=== PATIENT | female | born 1955 | race Caucasian/White ===

== ENCOUNTER 2016-10-21 09:59 | Inpatient (IN) | payer BC, MEDICARE ==
[~2016-10-21] VITALS: Ht 162.6 cm; Wt 92.6 kg
[2016-10-21 10:40] LABS: BASO % 0.3 % (0.0-1.0); EOS # 0.1 K/mm3 (0.0-0.50); EOS % 2.2 % (0.0-3.0); LARGE UNSTAINED CELL % 0.5 % (0.0-4.0); LYMPH # 1.3 K/mm3 (1.5-4.5); MEAN CORPUSCULAR HEMOGLOBIN 30.2 pg (27.0-33.0); MEAN CORPUSCULAR HGB CONC 34.4 g/dl (32.0-36.5); MEAN CORPUSCULAR VOLUME 87.7 fl (80.0-96.0); MONO # 0.4 K/mm3 (0.0-0.8); MONO % 7.5 % (0.0-5.0); NEUTROPHILS # 3.7 K/mm3 (1.8-7.7); NEUTROPHILS % 66.4 % (36.0-66.0); PLATELET COUNT, AUTOMATED 262 k/mm3 (150-450); WHITE BLOOD COUNT 5.6 K/mm3 (4.0-10.0)
[2016-10-21 11:03] LABS: ALBUMIN 3.2 GM/DL (3.2-5.2); ALBUMIN/GLOBULIN RATIO 0.74 (1.00-1.93); ALKALINE PHOSPHATASE 94 U/L (45-117); ALT/SGPT 26 U/L (12-78); ANION GAP 9 MEQ/L (8-16); AST/SGOT 21 U/L (15-37); BILIRUBIN,DIRECT < 0.1 MG/DL (0.0-0.2); BILIRUBIN,TOTAL 0.2 MG/DL (0.2-1.0); BLOOD UREA NITROGEN 8 MG/DL (7-18); CALCIUM LEVEL 8.6 MG/DL (8.8-10.2); CARBON DIOXIDE LEVEL 25 MEQ/L (21-32); CHLORIDE LEVEL 105 MEQ/L (98-107); CREATININE FOR GFR 0.53 MG/DL (0.55-1.02); GLOMERULAR FILTRATION RATE > 60.0 (>45); GLUCOSE, FASTING 117 MG/DL (80-110); POTASSIUM SERUM 3.9 MEQ/L (3.5-5.1); SODIUM LEVEL 139 MEQ/L (136-145); TOTAL PROTEIN 7.5 GM/DL (6.4-8.2)
--- NOTE | 2016-10-21 11:38 | REP ---
RIGHT LOWER EXTREMITY DUPLEX DOPPLER VENOUS ULTRASOUND: Real-time compression and duplex Doppler interrogation of the right lower extremity deep venous system is performed. Extensive occlusive deep venous thrombosis is seen of the right common femoral vein extending inferiorly through the superficial femoral vein into the popliteal vein. IMPRESSION: Extensive right lower extremity deep venous thrombosis extending through the right common femoral vein, superficial femoral vein and popliteal vein. Signed by Joe Rosa MD 10/22/2016 04:41 P
[2016-10-21] MEDS ORDERED: VITA400C35 PO (11:41)
[2016-10-21] MEDS ORDERED: CITA20TA4 PO (11:41)
[2016-10-21] MEDS ORDERED: VITA10002 PO (11:41)
[2016-10-21] MEDS ORDERED: RILU1TAB2 PO (11:41)
[2016-10-21] MEDS ORDERED: MAGN500C PO (11:41)
[2016-10-21] MEDS ORDERED: SELE200C PO (11:41)
[2016-10-21] MEDS ORDERED: MULT1TAB18 PO (11:41)
[2016-10-21] MEDS ORDERED: COCO1000 PO (11:41)
[2016-10-21] MEDS ORDERED: CHEL50TA PO (11:41)
[2016-10-21] MEDS ORDERED: mucinex PO (11:41)
[2016-10-21] MEDS ORDERED: UBIQ100C PO (11:41)
[2016-10-21] MEDS ORDERED: [UNRECOGNIZED DRUG - OTHER] PO (11:41)
[2016-10-21] MEDS ORDERED: ASPI1TAB PO (11:41)
[2016-10-21] MEDS ORDERED: CALC600T21 PO (11:41)
[2016-10-21] MEDS ORDERED: VITA1CAP2 PO (11:41)
[2016-10-21] MEDS ORDERED: [UNRECOGNIZED DRUG - OTHER] PO (14:02)
[2016-10-21 14:26] LABS: INR 1.03
[2016-10-21] MEDS ORDERED: ECOT81TA5 PO (14:39)
[2016-10-21] MEDS ORDERED: VITMTA PO (14:43)
[2016-10-21] MEDS ORDERED: SELE200T20 PO (14:43)
[2016-10-21] MEDS ORDERED: MAGN500T14 PO (14:43)
[2016-10-21] MEDS ORDERED: NATU400T PO (14:44)
[2016-10-21] MEDS ORDERED: CYCL5TA PO (14:49)
[2016-10-21] MEDS ORDERED: GUAI60TA PO (14:49)
--- NOTE | 2016-10-21 15:04 | HPEPDOC ---
Medical History and Physical Date of Admission History and Physical ATTENDING: PCP: Dr Meneses. CC: RLE edema HPI: 61yoF with a past medical history significant for ALS following with [facility]. in Phase 3 Clinical trial of Tirasemtiv. Pt states she began to notice RLE edema 5 days ago, it has been slowly increasing to her thigh area, with mild aching. Denies RLE warmth, erythema. No fevers/chills. Denies any OBRIEN, CP, SOB, cough, palpitations, abdominal pain, N/V/D or changes in bowel or bladder habits. Pt has chronic weakness related to her ALS which she states is unchanged. She is in a motorized chair. She does not ambulate, she is able to transfer with assistance. She does report some dysphagia and occasionally coughs with eating. She self adjusts her diet. She has a pending sleep study with PAULA Peter. Upon presentation to the hospital the patient was found to have RLE DVT, thus the hospitalist team was consulted. PMHx: ALS. Following with Dr Cecilia MITCHELL, Dr Molina [facility] [place]. Phase 3 trial of Tirasemtiv through [facility]. Depression Left shoulder dislocation 01/10 PSHX: BTL ovarian cyst removed. Colonoscopy 2007. [facility]. 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 Tobacco use: denies ETOH: small glass wine Q2 nights. Illicit Drugs: Denies Recent travel: denies Advanced directives: none FAMHX: Mother: Alive, CAD/CMP Father: Asthma Siblings: 4 brothers Alive, CAD/[place] Children: Alive, well Unexpected deaths due to medical reasons: None. ROS: As noted in HPI, otherwise 11pt ROS of systems reviewed and unremarkable. Pt is postmenopausal. PE: GEN: 61yoF, appears stated age. Pt is examined in a motorized chair. Alert and oriented x 3. Pleasant, interactive. HEENT: Normocephalic, atraumatic. Pupils are equal, round, and reactive to light. Extraocular movements are intact. No nystagmus appreciated. Sclera are nonicteric. Conjunctiva without injection. Nose midline. Nasal turbinates without bogginess. No facial asymmetry. Moist mucous membranes. Dentition fair. Pharynx pink and moist, no cobblestoning. Neck supple, trachea midline. No lymphadenopathy or thyromegaly appreciated. CHEST: Regular rate and rhythm, +S1, +S2 LUNGS: Decreased BS bilaterally but CTA. No wheezes, rales, or rhonchi. No accessory muscle use. ABD: Round, soft, non-tender, non-distended. +Bowel sounds throughout. No rebound or guarding. No costovertebral angle tenderness. EXT: RLE edema noted to proximal Rt thigh. No increased warmth, erythema, no TTP. No cording noted. SKIN: [place], dry, warm. Capillary refill <2sec. No rashes. NEURO: Alert and oriented x 3. Dysarthria noted. Pt with generalized weakness UE /LEs. RLE U/S 10/21/16 Extensive right lower extremity deep venous thrombosis extending through the right common femoral vein superficial femoral vein and popliteal vein. A&P: 61yoF with a past medical history significant for ALS following with [facility]. in Phase 3 Clinical trial of Tirasemtiv. Pt states she began to notice RLE edema 5 days ago, it has been slowly increasing to her thigh area, with mild aching. Denies RLE warmth, erythema. The patient will be admitted to PCU for at least [address] Chirinos's service. RLE DVT. Pt's neurologist wishes to avoid novel oral anticoagulants. Pt will be started on Lovenox 1 mg/kg Q12hrs. Initiate Coumadin 3 mg tonite. INR daily and dose Coumadin accordingly. ALS. Pt remains on Riluzole. Is currently in Phase 3 trail Tirasemtiv as per Neurology [facility]. Depression. Continue Celexa. Dysarthria/Dysphagia. Pt states speech has been unchanged. She states she has had some trouble with her swallowing, with occas cough. No prior Swallow evaluation per pt. Request ST. Aspiration precautions. EMEKA protocol. DVT prophylaxis. As above. The patient is a Full code. Vital Signs Vital Signs Date Time Temp Pulse Resp B/P (MAP) Pulse Ox O2 Delivery O2 Flow Rate FiO2 10/21/16 14:07 97.3 72 18 143/73 (96) 98 Room Air Laboratory Data Labs 24H Laboratory Tests 2 10/21/16 10:25: White Blood Count 5.6, Red Blood Count 4.15, Hemoglobin 12.5, Hematocrit 36.4, Mean Corpuscular Volume 87.7, Mean Corpuscular Hemoglobin 30.2, Mean Corpuscular Hemoglobin Concent 34.4, Red Cell Distribution Width 13.0, Platelet Count 262, Neutrophils (%) (Auto) 66.4H, Lymphocytes (%) (Auto) 23.0L, Monocytes (%) (Auto) 7.5H, Eosinophils (%) (Auto) 2.2, Basophils (%) (Auto) 0.3 , Neutrophils # (Auto) 3.7, Lymphocytes # (Auto) 1.3L, Monocytes # (Auto) 0.4, Eosinophils # (Auto) 0.1, Basophils # (Auto) 0.0, Large Unclassified Cells % 0.5 , Large Unclassified Cells # 0.0, Prothrombin Time 13.6, Prothromb Time International Ratio 1.03, Activated Partial Thromboplast Time 33.8, Anion Gap 9 , Glomerular Filtration Rate > 60.0, Calcium Level 8.6L, Aspartate Amino Transf (AST/SGOT) 21, Alanine Aminotransferase (ALT/SGPT) 26, Alkaline Phosphatase 94, Total Bilirubin 0.2, Direct Bilirubin < 0.1, Total Protein 7.5, Albumin 3.2, Albumin/Globulin Ratio 0.74L CBC/BMP Laboratory Tests 10/21/16 10:25 Red Blood Count 4.15, Mean Corpuscular Volume 87.7, Mean Corpuscular Hemoglobin 30.2, Mean Corpuscular Hemoglobin Concent 34.4, Red Cell Distribution Width 13.0 , Neutrophils (%) (Auto) 66.4 H, Lymphocytes (%) (Auto) 23.0 L, Monocytes (%) ( Auto) 7.5 H, Eosinophils (%) (Auto) 2.2, Basophils (%) (Auto) 0.3, Neutrophils # (Auto) 3.7, Lymphocytes # (Auto) 1.3 L, Monocytes # (Auto) 0.4, Eosinophils # (Auto) 0.1, Basophils # (Auto) 0.0 Home Medications Scheduled (Ubiquinol) 100 Mg Cap, 100 MG PO DAILY (Selenium 200 Mcg) 1 Tab Tab, 1 TAB PO DAILY Alpha Tocopheryl Acid Succinat (Vitamin E) 400 Unit Tab, 400 UNIT PO DAILY Aspirin (Ecotrin Low Strength) 81 Mg Tab, 81 MG PO DAILY Calcium Carbonate (Calcium) 600 Mg Tab, 1,200 MG PO DAILY Cholecalciferol (Vitamin D-3) 1,000 Unit Cap, 1,000 UNIT PO DAILY Citalopram Hydrobromide (Citalopram Hydrobromide) 20 Mg Tab, 20 MG PO QHS Coconut Oil (Coconut Oil Organic) 1,000 Mg Cap, 1,000 MG PO DAILY Cyanocobalamin (Vitamin B-12) 1,000 Mcg Tab, 1,000 MCG PO BID Cyclobenzaprine HCl (Cyclobenzaprine HCl) 5 Mg Tab, 5 MG PO QHS Magnesium Oxide (Magnesium Oxide) 500 Mg Tab, 500 MG PO DAILY Multivitamins *[facility] STOCKED* (Thera M Plus *[facility] STOCKED*) 1 Tab Tab, 1 TAB PO DAILY Riluzole (Riluzole) 50 Mg Tab, 50 MG PO DAILY Zinc Gluconate (Zinc) 50 Mg Tab, 50 MG PO DAILY [tirasemtiv] 125 TAB, 125 MG PO BID *EXPERIMENTAL DRUG* Scheduled PRN Guaifenesin (Mucinex) 600 Mg Tab, 600 MG PO DAILY PRN for CONGESTION Allergies Coded Allergies: No Known Allergies (Unverified , 10/21/16) Sada Mejia Oct 21, 2016 15:04
[2016-10-21] MEDS ORDERED: WARFARIN SOD 3 MG TAB PO ONE (17:00)
[2016-10-21 18:30] VITALS: BP 132/86
[2016-10-21] MEDS: ENOXAPARIN 80 MG/0.8 ML SYRINGE (J1650) SC SCH (18:59)
[2016-10-21 20:00] VITALS: BP 127/85
[2016-10-21] MEDS: [UNRECOGNIZED DRUG - OTHER] PO SCH (20:44)
[2016-10-21] MEDS: CYCLOBENZAPRINE 5MG TABLET PO SCH (20:45)
[2016-10-21] MEDS: CitaloPRAM (CeleXA) 20 MG TAB PO SCH (20:45)
[2016-10-21 23:59] VITALS: BP 128/74
[2016-10-22] MEDS: ACETAMINOPHEN 325 MG TAB PO PRN (00:37)
[2016-10-22 04:00] VITALS: BP 115/65
[2016-10-22] MEDS: ENOXAPARIN 80 MG/0.8 ML SYRINGE (J1650) SC SCH ×2 (06:09→17:38)
[2016-10-22 06:21] LABS: INR 1.12
[2016-10-22 06:23] LABS: BASO % 0.4 % (0.0-1.0); EOS # 0.1 K/mm3 (0.0-0.50); EOS % 1.8 % (0.0-3.0); LARGE UNSTAINED CELL # 0.1 K/mm3 (0.0-0.4); LARGE UNSTAINED CELL % 1.5 % (0.0-4.0); LYMPH # 1.8 K/mm3 (1.5-4.5); LYMPH % 33.5 % (24.0-44.0); MEAN CORPUSCULAR HEMOGLOBIN 29.3 pg (27.0-33.0); MEAN CORPUSCULAR HGB CONC 33.8 g/dl (32.0-36.5); MEAN CORPUSCULAR VOLUME 86.7 fl (80.0-96.0); MONO # 0.5 K/mm3 (0.0-0.8); MONO % 8.9 % (0.0-5.0); NEUTROPHILS # 2.9 K/mm3 (1.8-7.7); PLATELET COUNT, AUTOMATED 264 k/mm3 (150-450); RED CELL DISTRIBUTION WIDTH 12.8 % (11.5-14.5); WHITE BLOOD COUNT 5.3 K/mm3 (4.0-10.0)
[2016-10-22 06:41] LABS: ALBUMIN/GLOBULIN RATIO 0.77 (1.00-1.93); ALKALINE PHOSPHATASE 84 U/L (45-117); ALT/SGPT 23 U/L (12-78); ANION GAP 9 MEQ/L (8-16); AST/SGOT 21 U/L (15-37); BILIRUBIN,TOTAL 0.4 MG/DL (0.2-1.0); BLOOD UREA NITROGEN 9 MG/DL (7-18); CALCIUM LEVEL 8.7 MG/DL (8.8-10.2); CARBON DIOXIDE LEVEL 26 MEQ/L (21-32); CHLORIDE LEVEL 106 MEQ/L (98-107); CREATININE FOR GFR 0.55 MG/DL (0.55-1.02); GLOMERULAR FILTRATION RATE > 60.0 (>45); GLUCOSE, FASTING 108 MG/DL (80-110); POTASSIUM SERUM 3.8 MEQ/L (3.5-5.1); SODIUM LEVEL 141 MEQ/L (136-145); TOTAL PROTEIN 6.9 GM/DL (6.4-8.2)
[2016-10-22 08:00] VITALS: BP 131/78
[2016-10-22] MEDS: [UNRECOGNIZED DRUG - OTHER] PO SCH ×2 (08:36→20:51)
[2016-10-22] MEDS: RILUZOLE 50 MG PO SCH (08:36)
[2016-10-22 12:00] VITALS: BP 138/77
[2016-10-22 16:00] VITALS: BP 138/80
[2016-10-22] MEDS: WARFARIN SOD 5 MG TAB PO SCH (17:38)
[2016-10-22 20:00] VITALS: BP 166/98
[2016-10-22] MEDS: CitaloPRAM (CeleXA) 20 MG TAB PO SCH (20:51)
[2016-10-22] MEDS: CYCLOBENZAPRINE 5MG TABLET PO SCH (20:52)
[2016-10-22 20:58] VITALS: BP 153/83
--- NOTE | 2016-10-22 21:38 | IPN ---
DATE: 10/22/2016 SUBJECTIVE: The patient is seen and examined in the room today. The patient still complained about significant pain at the right upper lower extremities; still warm to touch and there is still significant swelling of the left lower extremities. No overnight events reported. OBJECTIVE: VITAL SIGNS: Temperature 99.5, pulse is 80, respirations 22, blood pressure is 131/78, pulse oximetry 92% on room air. GENERAL: No sign of acute distress. Alert and oriented times three. HEENT: Normocephalic, atraumatic. Extraocular movements grossly intact. CARDIOVASCULAR: Positive S1, S2, regular rate. LUNGS: Decreased breath sounds bilaterally, but clear to auscultation. No wheezes or rhonchi. ABDOMEN: Soft, nontender, nondistended. Bowel sounds present. EXTREMITIES: There is swelling of the right lower extremity below the right inguinal area. There is some mild increased warmth. Very tender to palpation, but no sign of cyanosis. LABORATORY DATA: WBC 25.3, hemoglobin 11.4, hematocrit 33.8, platelet count is 264. Sodium is 141, potassium 3.8, chloride 106. Carbon dioxide 26, BUN 9, creatinine 0.55. GFR greater than 60. Fasting glucose 108. Calcium 8.7, total bilirubin is 0.4. AST is 21, ALT is 23. Alkaline phosphatase is 84. Total protein 6.9, albumin 3. PT is 14.5, INR is 1.12. ASSESSMENT AND PLAN: 1. Right lower extremity deep venous thrombosis (DVT). The patient is currently in phase 3 clinical trial of Tirasemtiv. Due to the specialist, the patient's neurologist does recommend avoiding novel oral anticoagulations so patient is started on the Lovenox. A full dose of Lovenox bridging with Coumadin. Will continue to monitor INR creatinine. The patient's INR is around 1.12. 2. Amyotrophic lateral sclerosis (ALS). The patient has been taking her clinical trial medication (Tirasemtiv). The patient is also taking riluzole. 3. Depression. On Celexa. 4. History of dysarthria and dysphagia. The patient is on mechanical soft diet. The patient has speech therapy evaluation. The patient is on aspirin precautions. 5. Deep venous thrombosis (DVT) prophylaxis. The patient had a DVT, on Lovenox, bridging with warfarin.
[2016-10-23 06:00] VITALS: BP 157/79
[2016-10-23] MEDS: ENOXAPARIN 80 MG/0.8 ML SYRINGE (J1650) SC SCH ×2 (06:59→17:38)
[2016-10-23 07:12] LABS: BASO % 0.6 % (0.0-1.0); EOS # 0.1 K/mm3 (0.0-0.50); EOS % 1.6 % (0.0-3.0); INR 1.16; LARGE UNSTAINED CELL # 0.1 K/mm3 (0.0-0.4); LARGE UNSTAINED CELL % 2.2 % (0.0-4.0); LYMPH # 1.4 K/mm3 (1.5-4.5); LYMPH % 28.6 % (24.0-44.0); MEAN CORPUSCULAR HEMOGLOBIN 30.4 pg (27.0-33.0); MEAN CORPUSCULAR HGB CONC 34.5 g/dl (32.0-36.5); MEAN CORPUSCULAR VOLUME 88.1 fl (80.0-96.0); MONO # 0.4 K/mm3 (0.0-0.8); MONO % 8.4 % (0.0-5.0); NEUTROPHILS # 2.8 K/mm3 (1.8-7.7); NEUTROPHILS % 58.5 % (36.0-66.0); PLATELET COUNT, AUTOMATED 300 k/mm3 (150-450); RED CELL DISTRIBUTION WIDTH 12.7 % (11.5-14.5); WHITE BLOOD COUNT 4.7 K/mm3 (4.0-10.0)
[2016-10-23 07:34] LABS: ALBUMIN 3.2 GM/DL (3.2-5.2); ALBUMIN/GLOBULIN RATIO 0.82 (1.00-1.93); ALKALINE PHOSPHATASE 98 U/L (45-117); ALT/SGPT 27 U/L (12-78); ANION GAP 10 MEQ/L (8-16); AST/SGOT 24 U/L (15-37); BILIRUBIN,TOTAL 0.2 MG/DL (0.2-1.0); BLOOD UREA NITROGEN 9 MG/DL (7-18); CALCIUM LEVEL 8.4 MG/DL (8.8-10.2); CARBON DIOXIDE LEVEL 26 MEQ/L (21-32); CHLORIDE LEVEL 105 MEQ/L (98-107); CREATININE FOR GFR 0.56 MG/DL (0.55-1.02); GLOMERULAR FILTRATION RATE > 60.0 (>45); GLUCOSE, FASTING 121 MG/DL (80-110); POTASSIUM SERUM 3.5 MEQ/L (3.5-5.1); SODIUM LEVEL 141 MEQ/L (136-145); TOTAL PROTEIN 7.1 GM/DL (6.4-8.2)
[2016-10-23] MEDS: RILUZOLE 50 MG PO SCH (08:39)
[2016-10-23] MEDS: [UNRECOGNIZED DRUG - OTHER] PO SCH ×2 (08:39→20:26)
[2016-10-23 14:00] VITALS: BP 153/77
[2016-10-23] MEDS ORDERED: WARFARIN SOD 5 MG TAB PO ONE (17:30)
[2016-10-23] MEDS: WARFARIN SOD 5 MG TAB PO SCH (17:38)
--- NOTE | 2016-10-23 18:05 | IPN ---
DATE: 10/23/2016 SUBJECTIVE: The patient is seen and examined in the room today. The patient is still complaining about the swelling and the pain of right proximal lower extremity. Denies any acute complaint or acute changes. OBJECTIVE: VITAL SIGNS: Temperature is 97.6, pulse is 75, respirations 14, blood pressure 157/79. Pulse oximetry 97% on room air. GENERAL: No sign of acute distress. Alert and oriented times three. HEENT: Normocephalic, atraumatic. Extraocular motor grossly intact. CARDIOVASCULAR: Positive S1, S2. Regular rate. LUNGS: Decreased breath sounds bilaterally but clear to auscultation bilaterally. ABDOMEN: Soft, nontender, nondistended. Bowel sounds present. EXTREMITIES: Some swelling at the right lower extremity just below the right inguinal area. Tender to palpation, but no sign of cyanosis. LABORATORY DATA: WBC is 4.7, hemoglobin 12.4, hematocrit 35.9, platelet count is 300. Sodium is 141, potassium 3.5, chloride is 105, carbon dioxide 26, BUN 19, creatinine 0.56, GFR greater than 60, fasting glucose 121, calcium 8.4, total bilirubin 0.2, AST 24, ALT 27, alkaline phosphatase 98. Total protein 7.1, albumin 3.1. PT is 14.9, INR is 1.16. ASSESSMENT AND PLAN: 1. Right lower extremity deep venous thrombosis (DVT). The patient is currently in phase 3 clinical trial Tirasemtiv for amyotrophic lateral sclerosis (ALS) due to patient's neurologist recommend to avoid novel oral anticoagulation, so the patient started on full dose Lovenox covering with Coumadin. The patient's Coumadin has been subtherapeutic for the past three days. We will adjust the Coumadin from 5 mg to 10 mg. We will continue to monitor the daily international normalized ratio (INR). 2. Amyotrophic lateral sclerosis. The patient is taking clinical trial medication Tirasemtiv, and the patient is also taking Riluzole. 3. Depression on Celexa. 4. History of dysarthria and dysphagia. Evaluated by the speech therapist who recommends mechanical soft diet. 5. Deep venous thrombosis (DVT) prophylaxis. The patient has DVT on full-dose Lovenox bridging with Coumadin.
[2016-10-23] MEDS: CitaloPRAM (CeleXA) 20 MG TAB PO SCH (20:26)
[2016-10-23] MEDS: CYCLOBENZAPRINE 5MG TABLET PO SCH (20:26)
[2016-10-23 22:00] VITALS: BP 138/75
[2016-10-24] MEDS: ENOXAPARIN 80 MG/0.8 ML SYRINGE (J1650) SC SCH ×2 (05:59→18:11)
[2016-10-24 06:00] VITALS: BP 140/71
[2016-10-24 06:34] LABS: BASO % 0.4 % (0.0-1.0); EOS # 0.1 K/mm3 (0.0-0.50); LARGE UNSTAINED CELL # 0.1 K/mm3 (0.0-0.4); LARGE UNSTAINED CELL % 2.3 % (0.0-4.0); LYMPH # 1.5 K/mm3 (1.5-4.5); LYMPH % 33.7 % (24.0-44.0); MEAN CORPUSCULAR HEMOGLOBIN 31.5 pg (27.0-33.0); MEAN CORPUSCULAR HGB CONC 35.6 g/dl (32.0-36.5); MEAN CORPUSCULAR VOLUME 88.5 fl (80.0-96.0); MONO # 0.4 K/mm3 (0.0-0.8); MONO % 8.3 % (0.0-5.0); NEUTROPHILS # 2.4 K/mm3 (1.8-7.7); NEUTROPHILS % 53.3 % (36.0-66.0); PLATELET COUNT, AUTOMATED 291 k/mm3 (150-450); RED CELL DISTRIBUTION WIDTH 12.9 % (11.5-14.5); WHITE BLOOD COUNT 4.5 K/mm3 (4.0-10.0)
[2016-10-24 06:45] LABS: ALBUMIN/GLOBULIN RATIO 0.67 (1.00-1.93); ALKALINE PHOSPHATASE 89 U/L (45-117); ALT/SGPT 31 U/L (12-78); ANION GAP 7 MEQ/L (8-16); AST/SGOT 31 U/L (15-37); BILIRUBIN,TOTAL 0.2 MG/DL (0.2-1.0); BLOOD UREA NITROGEN 9 MG/DL (7-18); CALCIUM LEVEL 8.3 MG/DL (8.8-10.2); CARBON DIOXIDE LEVEL 29 MEQ/L (21-32); CHLORIDE LEVEL 105 MEQ/L (98-107); CREATININE FOR GFR 0.47 MG/DL (0.55-1.02); GLOMERULAR FILTRATION RATE > 60.0 (>45); GLUCOSE, FASTING 110 MG/DL (80-110); INR 1.96; POTASSIUM SERUM 3.8 MEQ/L (3.5-5.1); SODIUM LEVEL 141 MEQ/L (136-145); TOTAL PROTEIN 7.5 GM/DL (6.4-8.2)
[2016-10-24] MEDS: RILUZOLE 50 MG PO SCH (08:37)
[2016-10-24] MEDS: [UNRECOGNIZED DRUG - OTHER] PO SCH ×2 (08:38→21:07)
[2016-10-24 09:39] VITALS: BP_SYST 131; BP_SYST 138; BP_DIAS 83
[2016-10-24 14:00] VITALS: BP 160/100
[2016-10-24] MEDS ORDERED: WARFARIN SOD 7.5 MG TAB PO SCH (17:00)
--- NOTE | 2016-10-24 19:06 | IPN ---
DATE: 10/24/2016 SUBJECTIVE: Patient is seen and examined in the room today. The patient stated her right thigh swelling and the pain have been improving. No overnight events were reported. OBJECTIVE: VITAL SIGNS: Temperature is 98, pulse 83, respirations 18, blood pressure 140/71, pulse oximetry 96% on room air. GENERAL: No sign of acute distress. Alert and oriented times three. HEENT: Normocephalic, atraumatic. Extraocular motor grossly intact. CARDIOVASCULAR: Positive S1, S2. Regular rate. LUNGS: Decreased breath sounds bilaterally, but clear to auscultation. ABDOMEN: Soft, nontender, nondistended. Bowel sounds present. No rebound, no guarding. EXTREMITIES: There is still some mild swelling of the right lower extremity, just right below the right inguinal area. However, the swelling has improved compared to yesterday. There is still minor discomfort to palpation, but the tenderness also improved compared to yesterday. No sign of cyanosis. LABORATORY DATA: WBC is 4.5, hemoglobin 12.4, hematocrit 34.9, platelet count is 291. Sodium is 141, potassium 3.8, chloride 105, carbon dioxide 29, BUN 9, creatinine 0.47, GFR greater than 60, fasting glucose 110, calcium 8.3, total bilirubin 0.2, AST 31, ALT 31, alkaline phosphatase is 89. Total protein 7.5, albumin is 3. ASSESSMENT AND PLAN: 1. Right lower extremity deep venous thrombosis (DVT). The patient on phase 3 clinical trial of medication (tirasemtiv) for her amyotrophic lateral sclerosis (ALS). Her neurologist recommends avoiding oral anticoagulation. The patient is on full-dose Lovenox and covering with Coumadin. The patient had been taking various dose of Coumadin based on her international normalized ratio (INR). Today her INR improved to 1.96 from 1.16. Will continue to adjust the warfarin dose. 2. Amyotrophic lateral sclerosis. The patient is on Riluzole. The patient is also taking phase 3 clinical trial medication (tirasemtiv). 3. Depression on Celexa. 4. History of dysarthria and dysphagia. Speech therapy recommends mechanical soft diet. 5. Deep venous thrombosis prophylaxis. Patient on full dose of Lovenox and bridging with Coumadin.
[2016-10-24] MEDS: CYCLOBENZAPRINE 5MG TABLET PO SCH (21:07)
[2016-10-24] MEDS: CitaloPRAM (CeleXA) 20 MG TAB PO SCH (21:07)
[2016-10-24 22:00] VITALS: BP 150/86
[2016-10-25 06:00] VITALS: BP 152/81
[2016-10-25] MEDS: ENOXAPARIN 80 MG/0.8 ML SYRINGE (J1650) SC SCH (06:32)
[2016-10-25 06:52] LABS: BASO % 0.6 % (0.0-1.0); EOS # 0.1 K/mm3 (0.0-0.50); EOS % 2.9 % (0.0-3.0); LARGE UNSTAINED CELL # 0.1 K/mm3 (0.0-0.4); LYMPH # 1.7 K/mm3 (1.5-4.5); LYMPH % 35.4 % (24.0-44.0); MEAN CORPUSCULAR HEMOGLOBIN 29.9 pg (27.0-33.0); MEAN CORPUSCULAR HGB CONC 33.5 g/dl (32.0-36.5); MEAN CORPUSCULAR VOLUME 89.2 fl (80.0-96.0); MONO # 0.4 K/mm3 (0.0-0.8); NEUTROPHILS # 2.4 K/mm3 (1.8-7.7); NEUTROPHILS % 50.2 % (36.0-66.0); PLATELET COUNT, AUTOMATED 312 k/mm3 (150-450); RED CELL DISTRIBUTION WIDTH 13.1 % (11.5-14.5); WHITE BLOOD COUNT 4.8 K/mm3 (4.0-10.0)
[2016-10-25 06:57] LABS: INR 3.38
[2016-10-25 07:08] LABS: ALBUMIN 2.9 GM/DL (3.2-5.2); ALBUMIN/GLOBULIN RATIO 0.71 (1.00-1.93); ALKALINE PHOSPHATASE 87 U/L (45-117); ALT/SGPT 50 U/L (12-78); ANION GAP 8 MEQ/L (8-16); AST/SGOT 55 U/L (15-37); BILIRUBIN,TOTAL 0.2 MG/DL (0.2-1.0); BLOOD UREA NITROGEN 8 MG/DL (7-18); CARBON DIOXIDE LEVEL 25 MEQ/L (21-32); CHLORIDE LEVEL 108 MEQ/L (98-107); CREATININE FOR GFR 0.45 MG/DL (0.55-1.02); GLOMERULAR FILTRATION RATE > 60.0 (>45); GLUCOSE, FASTING 104 MG/DL (80-110); POTASSIUM SERUM 3.5 MEQ/L (3.5-5.1); SODIUM LEVEL 141 MEQ/L (136-145)
[2016-10-25] MEDS: [UNRECOGNIZED DRUG - OTHER] PO SCH ×2 (09:49→20:55)
[2016-10-25] MEDS: RILUZOLE 50 MG PO SCH (09:49)
--- NOTE | 2016-10-25 12:59 | IPNPDOC ---
Subjective Date Seen The patient was seen on 10/25/16. Subjective Chief Complaint/HPI The patient is a 61-year-old female admitted with a reason for visit of DVT. General: Denies: Chills, Night Sweats Constitutional: Denies: Chills, Fever Eyes: Denies: Pain, Vision change ENT: Denies: Head Aches, Ear Pain Skin: Denies: Rash, Lesions Pulmonary: Denies: Dyspnea, Cough Cardiovascular: Denies: Chest Pain, Palpitations Gastrointestinal: Denies: Nausea, Vomiting Genitourinary: Denies: Dysuria, Frequency Hematologic: Denies: Bruising, Bleeding Excessively Objective Physical Examination General Exam: Positive: Alert, Cooperative, No Acute Distress ENT Exam: Positive: Atraumatic, Mucous membr. moist/pink Neck Exam: Negative: JVD Chest Exam: Positive: Clear to auscultation, Normal air movement Heart Exam: Positive: Rate Normal, Normal S1, Normal S2 Abdomen Exam: Positive: Soft, Negative: Tenderness Extremity Exam: Positive: Other (right extremity noted to be more swollen than the left, no tenderness to palpation. 1+ pitting edema on the right. No sign of cyanosis) Psych Exam: Positive: Oriented x 3 Assessment /Plan Plan/VTE VTE Prophylaxis Ordered?: Yes Plan Right Lower Extremity Deep Venous Thrombosis (DVT). On full-dose Lovenox for bridging to Coumadin. INR noted to be 3.38 today We will continue to adjust her Coumadin dose accordingly. Amyotrophic lateral sclerosis. Cont Riluzole Also taking phase 3 clinical trial medication (tirasemtiv). Follows with Neuro as an outpt Depression Cont on Celexa History of dysarthria and dysphagia 2/2 ALS Speech therapy recommendation of mechanical soft diet noted Deep venous thrombosis prophylaxis Already on full dose of Lovenox for bridging to Coumadin. VS, I&O, 24H, Fishbone Vital Signs/I&O Vital Signs Date Time Temp Pulse Resp B/P (MAP) Pulse Ox O2 Delivery O2 Flow Rate FiO2 10/25/16 06:00 97.3 78 18 152/81 (104) 98 Room Air 10/24/16 09:39 96.0 I&O- Last 24 Hours up to 6 AM 10/25/16 05:59 Intake Total 1380 ml Balance 1380 ml Laboratory Data 24H LABS Laboratory Tests 2 10/25/16 06:14: White Blood Count 4.8, Red Blood Count 4.12, Hemoglobin 12.3, Hematocrit 36.8, Mean Corpuscular Volume 89.2, Mean Corpuscular Hemoglobin 29.9, Mean Corpuscular Hemoglobin Concent 33.5, Red Cell Distribution Width 13.1, Platelet Count 312, Neutrophils (%) (Auto) 50.2, Lymphocytes (%) (Auto) 35.4, Monocytes ( %) (Auto) 8.0H, Eosinophils (%) (Auto) 2.9, Basophils (%) (Auto) 0.6, Neutrophils # (Auto) 2.4, Lymphocytes # (Auto) 1.7, Monocytes # (Auto) 0.4, Eosinophils # (Auto) 0.1, Basophils # (Auto) 0.0, Large Unclassified Cells % 3.0 , Large Unclassified Cells # 0.1, Prothrombin Time 34.2H, Prothromb Time International Ratio 3.38, Anion Gap 8, Glomerular Filtration Rate > 60.0, Blood Urea Nitrogen 8, Creatinine 0.45L, Sodium Level 141, Potassium Level 3.5, Chloride Level 108H, Carbon Dioxide Level 25, Calcium Level 8.0L, Aspartate Amino Transf (AST/SGOT) 55H, Alanine Aminotransferase (ALT/SGPT) 50, Alkaline Phosphatase 87, Total Bilirubin 0.2, Total Protein 7.0, Albumin 2.9L, Albumin/ Globulin Ratio 0.71L CBC/BMP Laboratory Tests 10/25/16 06:14 Red Blood Count 4.12, Mean Corpuscular Volume 89.2, Mean Corpuscular Hemoglobin 29.9, Mean Corpuscular Hemoglobin Concent 33.5, Red Cell Distribution Width 13.1 , Neutrophils (%) (Auto) 50.2, Lymphocytes (%) (Auto) 35.4, Monocytes (%) (Auto ) 8.0 H, Eosinophils (%) (Auto) 2.9, Basophils (%) (Auto) 0.6, Neutrophils # ( Auto) 2.4, Lymphocytes # (Auto) 1.7, Monocytes # (Auto) 0.4, Eosinophils # (Auto ) 0.1, Basophils # (Auto) 0.0, Calcium Level 8.0 L, Aspartate Amino Transf (AST/ SGOT) 55 H, Alanine Aminotransferase (ALT/SGPT) 50, Alkaline Phosphatase 87, Total Bilirubin 0.2, Total Protein 7.0, Albumin 2.9 L IKE KRAMER MD Oct 25, 2016 12:59
[2016-10-25 14:00] VITALS: BP 140/89
[2016-10-25] MEDS: ACETAMINOPHEN 325 MG TAB PO PRN ×2 (14:33→18:24)
[2016-10-25] MEDS: CYCLOBENZAPRINE 5MG TABLET PO SCH (18:37)
[2016-10-25] MEDS ORDERED: CYCLOBENZAPRINE 5MG TABLET PO ONE (19:00)
[2016-10-25] MEDS: CitaloPRAM (CeleXA) 20 MG TAB PO SCH (20:56)
[2016-10-25 22:00] VITALS: BP 126/82
[2016-10-26] MEDS: ACETAMINOPHEN 325 MG TAB PO PRN ×2 (00:51→06:56)
[2016-10-26 06:00] VITALS: BP 125/60
--- NOTE | 2016-10-26 06:17 | REP ---
RIGHT ANKLE, FOUR VIEWS: HISTORY: Fall. There is a nondisplaced fracture of the distal fibula. The fracture appears to extend into the joint space. There is no dislocation. Calcification is present inferior to the medial malleolus. This represents ligamentous or tendon calcification. Soft tissue swelling is present. IMPRESSION: Nondisplaced fracture of the distal fibula. Signed by Lamine Fitzpatrick MD 10/26/2016 08:18 A
[2016-10-26 08:06] LABS: BASO % 0.5 % (0.0-1.0); EOS # 0.1 K/mm3 (0.0-0.50); EOS % 1.4 % (0.0-3.0); LARGE UNSTAINED CELL # 0.1 K/mm3 (0.0-0.4); LARGE UNSTAINED CELL % 1.3 % (0.0-4.0); LYMPH # 1.3 K/mm3 (1.5-4.5); LYMPH % 24.7 % (24.0-44.0); MEAN CORPUSCULAR HEMOGLOBIN 29.3 pg (27.0-33.0); MEAN CORPUSCULAR HGB CONC 33.3 g/dl (32.0-36.5); MEAN CORPUSCULAR VOLUME 88.2 fl (80.0-96.0); MONO # 0.4 K/mm3 (0.0-0.8); MONO % 7.1 % (0.0-5.0); NEUTROPHILS # 3.3 K/mm3 (1.8-7.7); PLATELET COUNT, AUTOMATED 320 k/mm3 (150-450); RED CELL DISTRIBUTION WIDTH 13.3 % (11.5-14.5); WHITE BLOOD COUNT 5.1 K/mm3 (4.0-10.0)
[2016-10-26 08:10] LABS: INR 3.17
[2016-10-26] MEDS: CYCLOBENZAPRINE 5MG TABLET PO PRN (08:13)
[2016-10-26] MEDS: RILUZOLE 50 MG PO SCH (08:13)
[2016-10-26] MEDS: PERCOCET 5MG/325MG TAB PO PRN ×3 (08:14→20:24)
[2016-10-26] MEDS: [UNRECOGNIZED DRUG - OTHER] PO SCH ×2 (08:14→20:22)
[2016-10-26 08:27] LABS: ALBUMIN 3.2 GM/DL (3.2-5.2); ALBUMIN/GLOBULIN RATIO 0.74 (1.00-1.93); ALKALINE PHOSPHATASE 89 U/L (45-117); ALT/SGPT 58 U/L (12-78); ANION GAP 8 MEQ/L (8-16); AST/SGOT 50 U/L (15-37); BILIRUBIN,TOTAL 0.3 MG/DL (0.2-1.0); BLOOD UREA NITROGEN 10 MG/DL (7-18); CALCIUM LEVEL 8.4 MG/DL (8.8-10.2); CARBON DIOXIDE LEVEL 25 MEQ/L (21-32); CHLORIDE LEVEL 108 MEQ/L (98-107); CREATININE FOR GFR 0.53 MG/DL (0.55-1.02); GLOMERULAR FILTRATION RATE > 60.0 (>45); GLUCOSE, FASTING 112 MG/DL (80-110); POTASSIUM SERUM 3.6 MEQ/L (3.5-5.1); SODIUM LEVEL 141 MEQ/L (136-145); TOTAL PROTEIN 7.5 GM/DL (6.4-8.2)
[2016-10-26] MEDS ORDERED: PERCOCET 5MG/325MG TAB PO ONE (09:45)
--- NOTE | 2016-10-26 11:12 | CR ---
DATE OF CONSULTATION: 10/26/2016 CHIEF COMPLAINT: Right ankle pain. HISTORY OF PRESENT ILLNESS: This is a 61-year-old female with a past medical history significant for amyotrophic lateral sclerosis (ALS). She is basically bed. She describes herself as being bed to chair. She is in a wheelchair because of ALS. The right side is the bad side. She is also under admission for a deep vein thrombosis in the right lower extremity. She was getting out of bed to use the shower yesterday and she says that she turned her ankle. She had declined help to use the shower according to the patient. She wishes she had accepted the help in the shower. The ankle has hurt. The ankle was recently placed in an Navneet wrap and that has helped some. MEDICAL HISTORY: Includes ALS, depression, left shoulder dislocation in December 2015. SURGICAL HISTORY: Includes ovarian cyst removal, colonoscopy. SOCIAL HISTORY: She is and has two children. She is from [place], [place]. She doesn't smoke, rarely drinks. No drug use. FAMILY HISTORY: Not contributory. REVIEW OF SYSTEMS: She has not been complaining of any changes in her neurologic deficit, shortness of breath, headache, abdominal pain, chest pain, endocrine problems. She complains of right lower extremity discomfort around the ankle. CLINICAL EXAMINATION: Alert and cooperative. She has some dysarthria secondary to her disease, but she is pleasant and interactive. Normocephalic, atraumatic. No shortness of breath. Abdomen soft and nontender. Extremities are out to length. Right lower extremity has tenderness, especially around the fibula, the right ankle. Toes are pink. Calves are relatively soft. The knee has no effusion. Ultrasound reflects a deep vein thrombosis in the right common femoral vein and the popliteal vein included. Plain films reflect a nondisplaced fibula fracture and disuse osteopenia. IMPRESSION: Right ankle fibula fracture, not displaced along with a severe neuromuscular condition. RECOMMENDATIONS: I would recommend an air cast splint. She can work with physical therapy to be bed to chair; however, she asked about ambulation and I think her ambulation was probably compromised prior to the injury and will be continue to be compromised afterwards. We talked about healing time, which is about 2 months for this injury. Air cast followup at orthopedics in 10-15 days. Physiotherapy for bed to chair mobilization.
[2016-10-26 14:00] VITALS: BP 141/82
--- NOTE | 2016-10-26 14:13 | IPNPDOC ---
Subjective Date Seen The patient was seen on 10/26/16. Subjective Chief Complaint/HPI The patient is a 61-year-old female admitted with a reason for visit of DVT. General: Denies: Chills, Night Sweats Constitutional: Denies: Chills, Fever Eyes: Denies: Pain, Vision change ENT: Denies: Head Aches, Ear Pain Skin: Denies: Rash, Lesions Pulmonary: Denies: Dyspnea, Cough Cardiovascular: Denies: Chest Pain, Palpitations Gastrointestinal: Denies: Nausea, Vomiting Genitourinary: Denies: Dysuria, Frequency Musculoskeletal: Reports: Foot Pain (Right Foot) Objective Physical Examination General Exam: Positive: Alert, Cooperative, No Acute Distress ENT Exam: Positive: Atraumatic, Mucous membr. moist/pink Neck Exam: Negative: JVD Chest Exam: Positive: Clear to auscultation, Normal air movement Heart Exam: Positive: Rate Normal, Normal S1, Normal S2 Abdomen Exam: Positive: Soft, Negative: Tenderness Extremity Exam: Positive: Other (Right Foot noted to be edematous, tender to palpation on the lateral aspect of the foot--superior to the lateral maleolous.) Psych Exam: Positive: Oriented x 3 Assessment /Plan Plan/VTE VTE Prophylaxis Ordered?: Yes Plan s/p Fall, Non-Displaced Fracture of the Distula Right Fibula Appreciate Ortho Input-->Air Cast Follow up at Orthopedics in 10-15 days Continue Physical Therapy Right Lower Extremity Deep Venous Thrombosis (DVT). On Coumadin. INR noted to be 3.1 today We will continue to adjust her Coumadin dose accordingly. Amyotrophic lateral sclerosis. Cont Riluzole Also taking phase 3 clinical trial medication (tirasemtiv). Follows with Neuro as an outpt Depression Cont on Celexa History of dysarthria and dysphagia 2/2 ALS Speech therapy recommendation of mechanical soft diet noted Deep venous thrombosis prophylaxis Already on Coumadin. Disposition-Will follow up with PT recommendations regarding disposition. VS, I&O, 24H, Fishbone Vital Signs/I&O Vital Signs Date Time Temp Pulse Resp B/P (MAP) Pulse Ox O2 Delivery O2 Flow Rate FiO2 10/26/16 11:06 Room Air 10/26/16 10:29 18 10/26/16 06:00 98.0 71 125/60 (81) 98 10/24/16 09:39 96.0 I&O- Last 24 Hours up to 6 AM 10/26/16 06:00 Intake Total 300 ml Balance 300 ml Laboratory Data 24H LABS Laboratory Tests 2 10/26/16 07:41: White Blood Count 5.1, Red Blood Count 4.01, Hemoglobin 11.8L, Hematocrit 35.4L , Mean Corpuscular Volume 88.2, Mean Corpuscular Hemoglobin 29.3, Mean Corpuscular Hemoglobin Concent 33.3, Red Cell Distribution Width 13.3, Platelet Count 320, Neutrophils (%) (Auto) 65.0, Lymphocytes (%) (Auto) 24.7, Monocytes ( %) (Auto) 7.1H, Eosinophils (%) (Auto) 1.4, Basophils (%) (Auto) 0.5, Neutrophils # (Auto) 3.3, Lymphocytes # (Auto) 1.3L, Monocytes # (Auto) 0.4, Eosinophils # (Auto) 0.1, Basophils # (Auto) 0.0, Large Unclassified Cells % 1.3 , Large Unclassified Cells # 0.1, Prothrombin Time 32.5H, Prothromb Time International Ratio 3.17, Anion Gap 8, Glomerular Filtration Rate > 60.0, Blood Urea Nitrogen 10, Creatinine 0.53L, Sodium Level 141, Potassium Level 3.6, Chloride Level 108H, Carbon Dioxide Level 25, Calcium Level 8.4L, Aspartate Amino Transf (AST/SGOT) 50H, Alanine Aminotransferase (ALT/SGPT) 58, Alkaline Phosphatase 89, Total Bilirubin 0.3, Total Protein 7.5, Albumin 3.2, Albumin/ Globulin Ratio 0.74L CBC/BMP Laboratory Tests 10/26/16 07:41 Red Blood Count 4.01, Mean Corpuscular Volume 88.2, Mean Corpuscular Hemoglobin 29.3, Mean Corpuscular Hemoglobin Concent 33.3, Red Cell Distribution Width 13.3 , Neutrophils (%) (Auto) 65.0, Lymphocytes (%) (Auto) 24.7, Monocytes (%) (Auto ) 7.1 H, Eosinophils (%) (Auto) 1.4, Basophils (%) (Auto) 0.5, Neutrophils # ( Auto) 3.3, Lymphocytes # (Auto) 1.3 L, Monocytes # (Auto) 0.4, Eosinophils # ( Auto) 0.1, Basophils # (Auto) 0.0, Calcium Level 8.4 L, Aspartate Amino Transf ( AST/SGOT) 50 H, Alanine Aminotransferase (ALT/SGPT) 58, Alkaline Phosphatase 89 , Total Bilirubin 0.3, Total Protein 7.5, Albumin 3.2 IKE KRAMER MD October 26, 2016 14:13
[2016-10-26] MEDS: WARFARIN SOD 3 MG TAB PO SCH (17:14)
[2016-10-26] MEDS: CitaloPRAM (CeleXA) 20 MG TAB PO SCH (20:22)
[2016-10-26 22:00] VITALS: BP 123/70
[2016-10-27 06:00] VITALS: BP 136/64
[2016-10-27] MEDS: PERCOCET 5MG/325MG TAB PO PRN (06:29)
[2016-10-27 07:31] LABS: BASO % 0.4 % (0.0-1.0); EOS # 0.1 K/mm3 (0.0-0.50); EOS % 1.6 % (0.0-3.0); LARGE UNSTAINED CELL # 0.1 K/mm3 (0.0-0.4); LARGE UNSTAINED CELL % 2.2 % (0.0-4.0); LYMPH # 1.2 K/mm3 (1.5-4.5); LYMPH % 22.2 % (24.0-44.0); MEAN CORPUSCULAR HEMOGLOBIN 29.5 pg (27.0-33.0); MEAN CORPUSCULAR VOLUME 89.3 fl (80.0-96.0); MONO # 0.3 K/mm3 (0.0-0.8); MONO % 6.7 % (0.0-5.0); NEUTROPHILS # 3.3 K/mm3 (1.8-7.7); NEUTROPHILS % 66.8 % (36.0-66.0); PLATELET COUNT, AUTOMATED 314 k/mm3 (150-450); RED CELL DISTRIBUTION WIDTH 13.4 % (11.5-14.5)
[2016-10-27 07:57] LABS: ALBUMIN 3.1 GM/DL (3.2-5.2); ALBUMIN/GLOBULIN RATIO 0.78 (1.00-1.93); ALKALINE PHOSPHATASE 84 U/L (45-117); ALT/SGPT 68 U/L (12-78); ANION GAP 9 MEQ/L (8-16); AST/SGOT 57 U/L (15-37); BILIRUBIN,TOTAL 0.2 MG/DL (0.2-1.0); BLOOD UREA NITROGEN 10 MG/DL (7-18); CALCIUM LEVEL 8.3 MG/DL (8.8-10.2); CARBON DIOXIDE LEVEL 26 MEQ/L (21-32); CHLORIDE LEVEL 106 MEQ/L (98-107); GLOMERULAR FILTRATION RATE > 60.0 (>45); GLUCOSE, FASTING 106 MG/DL (80-110); POTASSIUM SERUM 3.7 MEQ/L (3.5-5.1); SODIUM LEVEL 141 MEQ/L (136-145); TOTAL PROTEIN 7.1 GM/DL (6.4-8.2)
[2016-10-27 08:06] LABS: INR 3.12
[2016-10-27 09:00] VITALS: BP 134/82
[2016-10-27] MEDS: RILUZOLE 50 MG PO SCH (09:59)
[2016-10-27] MEDS: [UNRECOGNIZED DRUG - OTHER] PO SCH ×2 (09:59→21:11)
--- NOTE | 2016-10-27 11:41 | IPNPDOC ---
Subjective Date Seen The patient was seen on 10/27/16. Subjective Chief Complaint/HPI The patient is a 61-year-old female admitted with a reason for visit of DVT. General: Denies: Chills, Night Sweats Constitutional: Denies: Chills, Fever Eyes: Denies: Pain, Vision change ENT: Denies: Head Aches, Ear Pain Skin: Denies: Rash, Lesions Pulmonary: Denies: Dyspnea, Cough Cardiovascular: Denies: Chest Pain, Palpitations Gastrointestinal: Denies: Nausea, Vomiting Genitourinary: Denies: Dysuria, Frequency Hematologic: Denies: Bruising, Bleeding Excessively Objective Physical Examination General Exam: Positive: Alert, Cooperative, No Acute Distress ENT Exam: Positive: Atraumatic, Mucous membr. moist/pink Neck Exam: Negative: JVD Chest Exam: Positive: Clear to auscultation, Normal air movement Heart Exam: Positive: Rate Normal, Normal S1, Normal S2 Abdomen Exam: Positive: Soft, Negative: Tenderness Extremity Exam: Positive: Other (Right Ankle noted to be wrapped in ESTELLA- Bandage in an AirCast--no tenderness to palpation noted.) Psych Exam: Positive: Oriented x 3 Assessment /Plan Plan/VTE VTE Prophylaxis Ordered?: Yes Plan Non-Displaced Fracture of the Distula Right Fibula 2/2 Mechanical Fall Appreciate Ortho Input-->Air Cast Follow up at Orthopedics in 10-15 days Continue Physical Therapy Right Lower Extremity Deep Venous Thrombosis (DVT). On Coumadin. INR noted to be 3.1 today We will continue to adjust her Coumadin dose accordingly. Amyotrophic lateral sclerosis. Cont Riluzole Also taking phase 3 clinical trial medication (tirasemtiv). Follows with Neuro as an outpt Depression Cont on Celexa History of dysarthria and dysphagia 2/2 ALS Speech therapy recommendation of mechanical soft diet noted Deep venous thrombosis prophylaxis Already on Coumadin. Disposition-Will follow up with PT recommendations regarding disposition. VS, I&O, 24H, Fishbone Vital Signs/I&O Vital Signs Date Time Temp Pulse Resp B/P (MAP) Pulse Ox O2 Delivery O2 Flow Rate FiO2 10/27/16 09:49 94 Room Air 10/27/16 07:29 16 10/27/16 06:00 98.4 91 136/64 (88) 10/24/16 09:39 96.0 I&O- Last 24 Hours up to 6 AM 5/2/17 06:00 Intake Total 540 ml Output Total 800 ml Balance -260 ml Laboratory Data 24H LABS Laboratory Tests 2 10/27/16 07:04: White Blood Count 5.0, Red Blood Count 3.87L, Hemoglobin 11.4L, Hematocrit 34.6L , Mean Corpuscular Volume 89.3, Mean Corpuscular Hemoglobin 29.5, Mean Corpuscular Hemoglobin Concent 33.0, Red Cell Distribution Width 13.4, Platelet Count 314, Neutrophils (%) (Auto) 66.8H, Lymphocytes (%) (Auto) 22.2L, Monocytes (%) (Auto) 6.7H, Eosinophils (%) (Auto) 1.6, Basophils (%) (Auto) 0.4 , Neutrophils # (Auto) 3.3, Lymphocytes # (Auto) 1.2L, Monocytes # (Auto) 0.3, Eosinophils # (Auto) 0.1, Basophils # (Auto) 0.0, Large Unclassified Cells % 2.2 , Large Unclassified Cells # 0.1, Prothrombin Time 32.1H, Prothromb Time International Ratio 3.12, Anion Gap 9, Glomerular Filtration Rate > 60.0, Blood Urea Nitrogen 10, Creatinine 0.50L, Sodium Level 141, Potassium Level 3.7, Chloride Level 106, Carbon Dioxide Level 26, Calcium Level 8.3L, Aspartate Amino Transf (AST/SGOT) 57H, Alanine Aminotransferase (ALT/SGPT) 68, Alkaline Phosphatase 84, Total Bilirubin 0.2, Total Protein 7.1, Albumin 3.1L, Albumin/ Globulin Ratio 0.78L CBC/BMP Laboratory Tests 10/27/16 07:04 Red Blood Count 3.87 L, Mean Corpuscular Volume 89.3, Mean Corpuscular Hemoglobin 29.5, Mean Corpuscular Hemoglobin Concent 33.0, Red Cell Distribution Width 13.4, Neutrophils (%) (Auto) 66.8 H, Lymphocytes (%) (Auto) 22.2 L, Monocytes (%) (Auto) 6.7 H, Eosinophils (%) (Auto) 1.6, Basophils (%) ( Auto) 0.4, Neutrophils # (Auto) 3.3, Lymphocytes # (Auto) 1.2 L, Monocytes # ( Auto) 0.3, Eosinophils # (Auto) 0.1, Basophils # (Auto) 0.0, Calcium Level 8.3 L , Aspartate Amino Transf (AST/SGOT) 57 H, Alanine Aminotransferase (ALT/SGPT) 68 , Alkaline Phosphatase 84, Total Bilirubin 0.2, Total Protein 7.1, Albumin 3.1 L IKE KRAMER MD October 27, 2016 11:41
[2016-10-27 14:00] VITALS: BP 138/74
[2016-10-27 14:30] VITALS: BP 109/74
[2016-10-27] MEDS: ACETAMINOPHEN 325 MG TAB PO PRN ×2 (14:50→21:15)
[2016-10-27] MEDS: WARFARIN SOD 3 MG TAB PO SCH (16:52)
[2016-10-27] MEDS: CitaloPRAM (CeleXA) 20 MG TAB PO SCH (21:10)
[2016-10-27 22:00] VITALS: BP 119/82
[2016-10-28] MEDS: CYCLOBENZAPRINE 5MG TABLET PO PRN (01:49)
[2016-10-28] MEDS: PERCOCET 5MG/325MG TAB PO PRN ×3 (01:55→21:26)
[2016-10-28 06:00] VITALS: BP 116/61
[2016-10-28 07:07] LABS: BASO % 0.4 % (0.0-1.0); EOS # 0.1 K/mm3 (0.0-0.50); LARGE UNSTAINED CELL # 0.1 K/mm3 (0.0-0.4); LYMPH # 1.6 K/mm3 (1.5-4.5); LYMPH % 28.2 % (24.0-44.0); MEAN CORPUSCULAR HEMOGLOBIN 29.5 pg (27.0-33.0); MEAN CORPUSCULAR HGB CONC 33.1 g/dl (32.0-36.5); MEAN CORPUSCULAR VOLUME 89.2 fl (80.0-96.0); MONO # 0.4 K/mm3 (0.0-0.8); MONO % 6.6 % (0.0-5.0); NEUTROPHILS # 3.2 K/mm3 (1.8-7.7); NEUTROPHILS % 60.9 % (36.0-66.0); PLATELET COUNT, AUTOMATED 323 k/mm3 (150-450); RED CELL DISTRIBUTION WIDTH 13.3 % (11.5-14.5); WHITE BLOOD COUNT 5.3 K/mm3 (4.0-10.0)
[2016-10-28 07:10] LABS: INR 3.82
[2016-10-28 07:27] LABS: ALBUMIN 3.1 GM/DL (3.2-5.2); ALBUMIN/GLOBULIN RATIO 0.86 (1.00-1.93); ALKALINE PHOSPHATASE 92 U/L (45-117); ALT/SGPT 67 U/L (12-78); ANION GAP 9 MEQ/L (8-16); AST/SGOT 52 U/L (15-37); BILIRUBIN,TOTAL 0.2 MG/DL (0.2-1.0); BLOOD UREA NITROGEN 11 MG/DL (7-18); CALCIUM LEVEL 8.1 MG/DL (8.8-10.2); CARBON DIOXIDE LEVEL 24 MEQ/L (21-32); CHLORIDE LEVEL 107 MEQ/L (98-107); CREATININE FOR GFR 0.49 MG/DL (0.55-1.02); GLOMERULAR FILTRATION RATE > 60.0 (>45); GLUCOSE, FASTING 108 MG/DL (80-110); POTASSIUM SERUM 4.1 MEQ/L (3.5-5.1); SODIUM LEVEL 140 MEQ/L (136-145); TOTAL PROTEIN 6.7 GM/DL (6.4-8.2)
[2016-10-28] MEDS: [UNRECOGNIZED DRUG - OTHER] PO SCH ×2 (08:31→21:25)
[2016-10-28] MEDS: RILUZOLE 50 MG PO SCH (08:31)
--- NOTE | 2016-10-28 13:07 | IPNPDOC ---
Subjective Date Seen The patient was seen on 10/28/16. Subjective Chief Complaint/HPI The patient is a 61-year-old female admitted with a reason for visit of DVT. General: Denies: Chills, Night Sweats Constitutional: Denies: Chills, Fever Eyes: Denies: Pain, Vision change ENT: Denies: Head Aches, Ear Pain Skin: Denies: Rash, Lesions Pulmonary: Denies: Dyspnea, Cough Cardiovascular: Denies: Chest Pain, Palpitations Gastrointestinal: Denies: Nausea, Vomiting Genitourinary: Denies: Dysuria, Frequency Objective Physical Examination General Exam: Positive: Alert, Cooperative, No Acute Distress ENT Exam: Positive: Atraumatic, Mucous membr. moist/pink Neck Exam: Negative: JVD Chest Exam: Positive: Clear to auscultation, Normal air movement Heart Exam: Positive: Rate Normal, Normal S1, Normal S2 Abdomen Exam: Positive: Soft, Negative: Tenderness Extremity Exam: Positive: Other (Right Ankle noted to be wrapped in ESTELLA- Bandage in an AirCast--no tenderness to palpation noted.) Psych Exam: Positive: Oriented x 3 Assessment /Plan Plan/VTE VTE Prophylaxis Ordered?: Yes Plan Non-Displaced Fracture of the Distula Right Fibula 2/2 Mechanical Fall Appreciate Ortho Input-->Air Cast Follow up at Orthopedics in 10-15 days Continue Physical Therapy Right Lower Extremity Deep Venous Thrombosis (DVT). On Coumadin. INR noted to be 3.8 today We will continue to adjust her Coumadin dose accordingly. Amyotrophic lateral sclerosis. Cont Riluzole Also taking phase 3 clinical trial medication (tirasemtiv). Follows with Neuro as an outpt Depression Cont on Celexa History of dysarthria and dysphagia 2/2 ALS Speech therapy recommendation of mechanical soft diet noted Deep venous thrombosis prophylaxis Already on Coumadin. Disposition-Will follow up with PT recommendations regarding disposition. VS, I&O, 24H, Fishbone Vital Signs/I&O Vital Signs Date Time Temp Pulse Resp B/P (MAP) Pulse Ox O2 Delivery O2 Flow Rate FiO2 10/28/16 12:02 16 10/28/16 09:00 Room Air 10/28/16 06:00 98.4 75 116/61 (79) 92 10/24/16 09:39 96.0 I&O- Last 24 Hours up to 6 AM 10/28/16 06:00 Intake Total 750 ml Output Total 750 ml Balance 0 ml Laboratory Data 24H LABS Laboratory Tests 2 10/28/16 06:22: White Blood Count 5.3, Red Blood Count 3.74L, Hemoglobin 11.0L, Hematocrit 33.4L , Mean Corpuscular Volume 89.2, Mean Corpuscular Hemoglobin 29.5, Mean Corpuscular Hemoglobin Concent 33.1, Red Cell Distribution Width 13.3, Platelet Count 323, Neutrophils (%) (Auto) 60.9, Lymphocytes (%) (Auto) 28.2, Monocytes ( %) (Auto) 6.6H, Eosinophils (%) (Auto) 2.0, Basophils (%) (Auto) 0.4, Neutrophils # (Auto) 3.2, Lymphocytes # (Auto) 1.6, Monocytes # (Auto) 0.4, Eosinophils # (Auto) 0.1, Basophils # (Auto) 0.0, Large Unclassified Cells % 2.0 , Large Unclassified Cells # 0.1, Prothrombin Time 37.6H, Prothromb Time International Ratio 3.82, Anion Gap 9, Glomerular Filtration Rate > 60.0, Blood Urea Nitrogen 11, Creatinine 0.49L, Sodium Level 140, Potassium Level 4.1, Chloride Level 107, Carbon Dioxide Level 24, Calcium Level 8.1L, Aspartate Amino Transf (AST/SGOT) 52H, Alanine Aminotransferase (ALT/SGPT) 67, Alkaline Phosphatase 92, Total Bilirubin 0.2, Total Protein 6.7, Albumin 3.1L, Albumin/ Globulin Ratio 0.86L CBC/BMP Laboratory Tests 10/28/16 06:22 Red Blood Count 3.74 L, Mean Corpuscular Volume 89.2, Mean Corpuscular Hemoglobin 29.5, Mean Corpuscular Hemoglobin Concent 33.1, Red Cell Distribution Width 13.3, Neutrophils (%) (Auto) 60.9, Lymphocytes (%) (Auto) 28.2, Monocytes (%) (Auto) 6.6 H, Eosinophils (%) (Auto) 2.0, Basophils (%) ( Auto) 0.4, Neutrophils # (Auto) 3.2, Lymphocytes # (Auto) 1.6, Monocytes # (Auto ) 0.4, Eosinophils # (Auto) 0.1, Basophils # (Auto) 0.0, Calcium Level 8.1 L, Aspartate Amino Transf (AST/SGOT) 52 H, Alanine Aminotransferase (ALT/SGPT) 67, Alkaline Phosphatase 92, Total Bilirubin 0.2, Total Protein 6.7, Albumin 3.1 L IKE KRAMER MD October 28, 2016 13:07
[2016-10-28] MEDS ORDERED: WARFARIN SOD 2 MG TAB PO SCH (17:00)
[2016-10-28] MEDS: CitaloPRAM (CeleXA) 20 MG TAB PO SCH (21:25)
[2016-10-28 22:00] VITALS: BP 142/70
[2016-10-29 06:00] VITALS: BP 143/77
[2016-10-29] MEDS: ACETAMINOPHEN 325 MG TAB PO PRN ×2 (06:07→11:59)
[2016-10-29] MEDS ORDERED: traMADol 50 MG TAB PO PRN (08:00)
[2016-10-29 08:21] LABS: INR 3.82
[2016-10-29] MEDS: [UNRECOGNIZED DRUG - OTHER] PO SCH (08:37)
[2016-10-29] MEDS: RILUZOLE 50 MG PO SCH (08:38)
[2016-10-29] MEDS ORDERED: TRAM50TA2 PO (11:14)
[2016-10-29] MEDS ORDERED: COUM2TAB10 PO (11:14)
[2016-10-29] MEDS: CYCLOBENZAPRINE 5MG TABLET PO PRN (11:58)
--- NOTE | 2016-10-29 12:02 | DS.PDOC ---
Discharge Summary General Date of Admission Oct 21, 2016 at 15:29 Date of Discharge 10/29/16 Primary Care Physician: DILLAN VALLE PA-C Specialist/Consultants Involve: Helder Carnes MD Discharge Summary PROCEDURES PERFORMED DURING STAY: None. ADMITTING DIAGNOSES: 1. .Right Lower Extremity DVT 2. .Nondisplaced fracture of the distal fibula DISCHARGE DIAGNOSES: 1. .Right Lower Extremity DVT 2. .Nondisplaced fracture of the distal fibula COMPLICATIONS/CHIEF COMPLAINT: DVT. HISTORY OF PRESENT ILLNESS: . 61-year-old female with past medical history significant for ALS who is currently following [facility] presents to the ER with a chief complaint of increasing lower extremity edema over the previous 5 days leading up to her visit to the ER. The patient notes that she had noticed a slow increase in redness, tenderness, and aching of the right thigh area. At baseline, the patient states that she is in a motorized chair, does not ambulate and is only able to transfer with assistance. In the ER, an ultrasound of the right lower extremity revealed extensive right lower extremity DVT extending through the right common femoral vein, superficial femoral vein and popliteal vein. The patient was admitted to the hospitalist service for further evaluation and management. During the patient's hospitalization, she was started on Coumadin therapy with Lovenox bridging. The patient did achieve therapeutic INR levels during her stay here. However, the patient's hospital course was complicated by a fall she sustained while showering in the bathroom. According to the patient and bedside nursing staff, the patient insisted upon taking a shower without any assistance. She notes that she fell on her right side in the shower secondary to a loss of balance. She denied any trauma to the head. However, she did complain of right ankle pain. An x-ray of the right ankle was obtained and this revealed a nondisplaced fracture of the distal fibula. An orthopedic consultation was sought, and the recommendation was for the patient to be in an air cast for 10-15 days and follow-up with orthopedic surgery as an outpatient. Physical therapy was recommended. At this time, the patient has been cleared to return home by physical therapy as she does have a Nick lift that she uses at home. The patient notes that she is feeling much better today and is eager to return home. I've advised the patient to follow-up with with orthopedic surgery in 2 weeks. In addition, she is to follow-up with her primary care physician within 5-7 days for a follow-up INR and further evaluation and management of her overall medical care. DISCHARGE MEDICATIONS: Please see below. ALLERGIES: Please see below. PHYSICAL EXAMINATION ON DISCHARGE: VITAL SIGNS: Please see below. General Exam: Positive: Alert, Cooperative, No Acute Distress ENT Exam: Positive: Atraumatic, Mucous membr. moist/pink Neck Exam: Negative: JVD Chest Exam: Positive: Clear to auscultation, Normal air movement Heart Exam: Positive: Rate Normal, Normal S1, Normal S2 Abdomen Exam: Positive: Soft, Negative: Tenderness Extremity Exam: Positive: Other (Right Ankle noted to be wrapped in ESTELLA- Bandage in an AirCast--no tenderness to palpation noted.) Psych Exam: Positive: Oriented x 3 LABORATORY DATA: Please see below. IMAGING: RIGHT LOWER EXTREMITY DUPLEX DOPPLER VENOUS ULTRASOUND: Real-time compression and duplex Doppler interrogation of the right lower extremity deep venous system is performed. Extensive occlusive deep venous thrombosis is seen of the right common femoral vein extending inferiorly through the superficial femoral vein into the popliteal vein. IMPRESSION: Extensive right lower extremity deep venous thrombosis extending through the right common femoral vein, superficial femoral vein and popliteal vein. RIGHT ANKLE, FOUR VIEWS: HISTORY: Fall. There is a nondisplaced fracture of the distal fibula. The fracture appears to extend into the joint space. There is no dislocation. Calcification is present inferior to the medial malleolus. This represents ligamentous or tendon calcification. Soft tissue swelling is present. IMPRESSION: Nondisplaced fracture of the distal fibula. PROGNOSIS: Medically stable at this time ACTIVITY: As tolerated. DIET: . 2 g low sodium diet DISCHARGE PLAN: DISPOSITION: . DISCHARGE INSTRUCTIONS: 1. . Follow-up with primary care physician within 5-7 days for monitoring of INR. 2. . Follow-up with orthopedic surgery in 2 weeks for nondisplaced right distal fracture 3. . Patient is to start Coumadin 2 mg by mouth daily starting 10/30/16 and obtain INR within 5-7 days for further monitoring. DISCHARGE CONDITION: Stable. TIME SPENT ON DISCHARGE: Greater than 30 minutes. Vital Signs/I&Os Vital Signs Date Time Temp Pulse Resp B/P (MAP) Pulse Ox O2 Delivery O2 Flow Rate FiO2 10/29/16 09:08 16 10/29/16 09:00 Room Air 5/4/17 06:00 98.3 76 143/77 (99) 94 10/24/16 09:39 96.0 I&O- Last 24 Hours up to 6 AM 10/29/16 06:00 Intake Total 360 ml Output Total 500 ml Balance -140 ml Laboratory Data Labs 24H Laboratory Tests 2 10/29/16 07:55: Prothrombin Time 37.6H, Prothromb Time International Ratio 3.82 Discharge Medications Scheduled (Ubiquinol) 100 Mg Cap, 100 MG PO DAILY, (Reported) (Selenium 200 Mcg) 1 Tab Tab, 1 TAB PO DAILY, (Reported) Alpha Tocopheryl Acid Succinat (Vitamin E) 400 Unit Tab, 400 UNIT PO DAILY, ( Reported) Calcium Carbonate (Calcium) 600 Mg Tab, 1,200 MG PO DAILY, (Reported) Cholecalciferol (Vitamin D-3) 1,000 Unit Cap, 1,000 UNIT PO DAILY, (Reported) Citalopram Hydrobromide (Citalopram Hydrobromide) 20 Mg Tab, 20 MG PO QHS, ( Reported) Coconut Oil (Coconut Oil Organic) 1,000 Mg Cap, 1,000 MG PO DAILY, (Reported) Cyanocobalamin (Vitamin B-12) 1,000 Mcg Tab, 1,000 MCG PO BID, (Reported) Cyclobenzaprine HCl (Cyclobenzaprine HCl) 5 Mg Tab, 5 MG PO QHS, (Reported) Magnesium Oxide (Magnesium Oxide) 500 Mg Tab, 500 MG PO DAILY, (Reported) Multivitamins *[facility] STOCKED* (Thera M Plus *[facility] STOCKED*) 1 Tab Tab, 1 TAB PO DAILY, (Reported) Riluzole (Riluzole) 50 Mg Tab, 50 MG PO DAILY, (Reported) Warfarin Sod (Coumadin) 2 Mg Tab, 2 MG PO DAILY@17 Please start Coumadin on 10/30/16 Zinc Gluconate (Zinc) 50 Mg Tab, 50 MG PO DAILY, (Reported) [tirasemtiv] 125 TAB, 125 MG PO BID, (Reported) *EXPERIMENTAL DRUG* Scheduled PRN Guaifenesin (Mucinex) 600 Mg Tab, 600 MG PO DAILY PRN for CONGESTION, (Reported) Tramadol HCl (Tramadol HCl) 50 Mg Tab, 50 MG PO Q6HP PRN for MODERATE PAIN (PS 5 -7) Allergies Coded Allergies: No Known Allergies (Unverified , 10/21/16) IKE KRAMER MD October 29, 2016 12:02
== END 2016-10-29 13:00 | disposition home health service (06) | DRG 197 ==
LOC: M ED 11:27 → M ED INP 15:29 → M PCU 18:31 → M MS5PR 10-22 20:32
PROVIDERS: ADMIT Internal Medicine; ATTEND Internal Medicine
DX: I82.411 Acute embolism and thrombosis of right femoral vein (principal); G12.21 Amyotrophic lateral sclerosis; I82.431 Acute embolism and thrombosis of right popliteal vein; R13.10 Dysphagia, unspecified; S82.401A Unspecified fracture of shaft of right fibula, initial encounter for closed fracture; R47.1 Dysarthria and anarthria; Z79.899 Other long term (current) drug therapy; Z79.01 Long term (current) use of anticoagulants; F32.9 Major depressive disorder, single episode, unspecified; W01.0XXA Fall on same level from slipping, tripping and stumbling without subsequent striking against object, initial encounter; Y92.230 Patient room in hospital as the place of occurrence of the external cause; Y93.E1 Activity, personal bathing and showering; Y99.9 Unspecified external cause status; Y95 Nosocomial condition; Z99.3 Dependence on wheelchair; Z98.51 Tubal ligation status; Z82.49 Family history of ischemic heart disease and other diseases of the circulatory system; Z82.5 Family history of asthma and other chronic lower respiratory diseases; Z79.82 Long term (current) use of aspirin

== ENCOUNTER 2016-11-09 12:27 | Inpatient (IN) | payer BC, MEDICARE ==
[~2016-11-09] VITALS: Ht 162.6 cm; Wt 80.7 kg
[~2016-11-09 12:27] MED LIST: ASPI1TAB PO; CALC600T21 PO; CHEL50TA PO; CITA20TA4 PO; COCO1000 PO; COUM2TAB10 PO; CYCL5TA PO; ECOT81TA5 PO; GUAI60TA PO; MAGN500C PO; MAGN500T14 PO; MULT1TAB18 PO; NATU400T PO; RILU1TAB2 PO; SELE200C PO; SELE200T20 PO; TRAM50TA2 PO; UBIQ100C PO; VITA10002 PO; VITA1CAP2 PO; VITA400C35 PO; VITMTA PO; [UNRECOGNIZED DRUG - OTHER] PO; [UNRECOGNIZED DRUG - OTHER] PO; mucinex PO
[2016-11-09] MEDS ORDERED: WARF4TAB52 PO (13:55)
[2016-11-09] MEDS ORDERED: TRAM50TA2 PO (13:55)
[2016-11-09] MEDS ORDERED: ACETAMINOPHEN TAB 650MG DOSE (2X325MG) PO PRN (15:30)
[2016-11-09] MEDS ORDERED: ONDANSETRON 4MG/2ML VIAL (J2405) IV PRN (15:30)
[2016-11-09] MEDS ORDERED: BISACODYL 5 MG TAB PO PRN (15:30)
[2016-11-09 16:03] LABS: BASO % 0.4 % (0.0-1.0); EOS # 0.1 K/mm3 (0.0-0.50); EOS % 1.5 % (0.0-3.0); LARGE UNSTAINED CELL # 0.1 K/mm3 (0.0-0.4); LARGE UNSTAINED CELL % 1.3 % (0.0-4.0); LYMPH # 1.4 K/mm3 (1.5-4.5); LYMPH % 24.6 % (24.0-44.0); MEAN CORPUSCULAR HGB CONC 32.9 g/dl (32.0-36.5); MEAN CORPUSCULAR VOLUME 88.3 fl (80.0-96.0); MONO # 0.4 K/mm3 (0.0-0.8); MONO % 7.8 % (0.0-5.0); NEUTROPHILS # 3.4 K/mm3 (1.8-7.7); NEUTROPHILS % 64.5 % (36.0-66.0); PLATELET COUNT, AUTOMATED 369 k/mm3 (150-450); RED CELL DISTRIBUTION WIDTH 13.5 % (11.5-14.5); WHITE BLOOD COUNT 5.2 K/mm3 (4.0-10.0)
[2016-11-09 16:07] LABS: INR 1.71
[2016-11-09 16:13] LABS: ANION GAP 7 MEQ/L (8-16); BLOOD UREA NITROGEN 8 MG/DL (7-18); CALCIUM LEVEL 8.6 MG/DL (8.8-10.2); CARBON DIOXIDE LEVEL 28 MEQ/L (21-32); CHLORIDE LEVEL 107 MEQ/L (98-107); CREATININE FOR GFR 0.48 MG/DL (0.55-1.02); GLOMERULAR FILTRATION RATE > 60.0 (>45); GLUCOSE, FASTING 91 MG/DL (80-110); POTASSIUM SERUM 3.9 MEQ/L (3.5-5.1); SODIUM LEVEL 142 MEQ/L (136-145)
[2016-11-09 16:20] VITALS: BP 137/84
[2016-11-09] MEDS ORDERED: ENOXAPARIN 80 MG/0.8 ML SYRINGE (J1650) SC ONE (16:45)
[2016-11-09] MEDS ORDERED: PHYTONADIONE 5 MG TAB PO ONE (16:45)
--- NOTE | 2016-11-09 16:52 | HPE ---
DATE OF ADMISSION: 11/09/2016 CHIEF COMPLAINT: Leg pain and swelling with ankle fracture. PRIMARY CARE PHYSICIAN: Dr. Meneses HISTORY OF PRESENT ILLNESS: Ms. Billings is a 61-year-old female with past medical history significant for ALS following with [facility] in phase III clinical trial of Tirasemtiv, and depression who was admitted to [facility] on October 21 and discharged on October 29 with right lower extremity DVT, and nondisplaced fracture of the distal fibula. The patient has sustained a fall in the shower, and fractured her distal fibula. She states that when she got home she continued to have pain in her right lower extremity, as well as increased swelling of the lower extremity. She went to see orthopedics on Wednesday, and they did another x-ray and found that the fracture had been displaced. The splinted her lower extremity on Wednesday and told her to come to the hospital on Wednesday for surgical repair. The patient denies any chest pain / pressure, shortness of breath, lightheadedness, dizziness, palpitations, nausea, vomiting, abdominal pain, diarrhea, constipation. No urinary complaints. No rashes or skin lesions. She was taking warfarin at home. About a week ago her levels were supra therapeutic. Given the need for surgery hospital service was called to admit. PAST MEDICAL HISTORY: 1. ALS follows with Dr. Saldana at [facility]. Diagnosed two and half years ago. 2. Depression. 3. Left shoulder dislocation December 2015. PAST SURGICAL HISTORY: 1. Bilateral tubal ligation - ovarian cyst removal. 2. Colonoscopy in 1999. SOCIAL HISTORY: The patient is a former smoker, quit 6 years ago. Smoked about half a pack for about 40 years. She has drinks wine a couple times a week. No illicit drug use. Lives with her . Two dogs in the home. There are no sick contacts and no recent travel. FAMILY HISTORY: Mother has history of coronary artery disease, CHF and pacemaker. Mom had a OR at 70. She also has history of HHT. Father from an asthma attack at 46. She has a brother who had OR in his 40s. She has another brother who had an OR in his 50s. Another brother received a stent when was for 48. HOME MEDICATIONS: - Tramadol 15 mg by mouth at night as needed - Warfarin 1 mg by mouth at night - Celexa 20 mg by mouth at night - Flexeril 5 mg by mouth at night - Riluzole 50 mg by mouth daily - Tirasemtiv 125 mg by mouth twice daily ALLERGIES: No known drug allergies. REVIEW OF SYSTEMS: General: Denies any fever, chills, night sweats. No significant weight changes. HEENT: No headache, lightheadedness or dizziness. No acute changes in vision or hearing necks. CARDIOVASCULAR: Denies any chest pain, pressure, shortness of breath, palpitations. No chronic lower extremity edema. PULMONARY: No shortness of breath or cough. No hemoptysis. GASTROINTESTINAL: No nausea, vomiting, abdominal pain, diarrhea, constipation, hematochezia or melena. GENITOURINARY: No change in urinary frequency. No dysuria or hematuria. SKIN: No unusual rashes or skin lesions. MUSCULOSKELETAL: Has right lower extremity pain and swelling. No other joint or muscle pains. NEUROLOGIC: No paresthesias. No syncope. She has ALS and has been in a motorized chair since last summer PSYCHIATRIC: History of depression which is stable on medications. PHYSICAL EXAMINATION: VITAL SIGNS: Temperature 97.1, pulse 71, respiratory rate 18, blood pressure 130/43, pulse ox 97% on room air. GENERAL: The patient is alert and oriented in no acute distress. HEENT: Normocephalic, atraumatic. Extraocular muscles are intact. Pupils are equally round and reactive to light. No scleral icterus. Moist mucosa. NECK: Supple. No cervical lymphadenopathy or thyromegaly. HEART: Normal S1-S2, regular rate and rhythm. No murmurs appreciated. LUNGS: Clear to auscultation bilaterally. No rales, rhonchi or wheezing. ABDOMEN: Soft, nontender, nondistended. Positive bowel sounds. No rebound, guarding or rigidity. EXTREMITIES: Right lower extremity is wrapped in dressing and splinted. She had some edema. Left lower extremities without edema. SKIN: Warm and dry. No rashes noted. NEUROLOGIC: Have a history of ALS with progressive weakness. She is in motorized chair . Cranial nerves II-XII are grossly intact. Sensation is intact. LABORATORY DATA: WBC 5.2, hemoglobin 11.5, hematocrit 35.0, platelet count 369, sodium 142, potassium 3.9, chloride 107, carbon dioxide 28, anion gap 7, BUN 8, creatinine 0.48, GFR greater than 60, fasting glucose 91, calcium 8.6, PT 20.2, INR 1.7. IMAGING STUDIES: The patient had a previous right ankle x-ray on October 08, which showed a nondisplaced fracture of the distal fibula. She reports that she had a repeat x-ray in the outpatient orthopedic office, which showed that the fracture is now displaced. ASSESSMENT/PLAN: 1. Right ankle fracture. Sustained a fall during last admission. Was discharged with an air cast. She reports that she had a repeat xray on Wednesday which revealed that fracture is now displaced. Orthopedics has been consulted. They will be taking her to the OR tomorrow. Will provide pain control prior to procedure. Pain control and DVT prophylaxis per ortho after surgery. The patient denies any angina or shortness of breath. No history of cardiovascular, lung or renal disease. She is mainly bound to her motorized chair due to ALS. She does have progressive weakness and speech issues. Given that fracture is now displaced and needs to be surgically repaired, she is medically optimized to proceed. Vitals are stable. Anesthesia should be tailored towards her history of ALS and precautions should be taken. 2. Right lower extremity DVT. The patient was on Coumadin. Her INR is subtherapeutic at 1.7. Bridged with low molecular weight heparin. Likely be resumed on Coumadin after surgical procedure. Will give one dose of vitamin K to obtain INR <1.5 for surgery. Patient had ultrasound of the lower extremity done from last admission on 10/21, which showed extensive occlusive DVT in the right common femoral vein extending inferiorly through the superficial femoral vein into the popliteal vein. 3. History of ALS she follows with Dr. Saldana at [facility]. Continue with Tirasemtiv and Riluzole daily. 4. Depression. Continue with Celexa daily. 5. DVT prophylaxis bridged with heparin and resume warfarin once surgery is completed. CODE STATUS: The patient is FULL CODE. The patient will be admitted as inpatient. Expected to stay at least two midnights. Dr. Diaz to take over her care in the morning. My preceptor for this patient encounter was Dr. Diane Chirinos. The preceptor was physically present in the building during the encounter and was fully available as needed. All aspects of the patient interview, examination, medical decision making process, and medical care plan development were reviewed and approved by the preceptor. The preceptor is aware and concurs with the plan as stated in the body of this note and will attest to such by his/her co-signature. MAYI
--- NOTE | 2016-11-09 17:40 | CR ---
DATE OF CONSULTATION: 11/09/2016 CONSULTATION REPORT FOR: Dr. Helder Carnes HISTORY OF PRESENT ILLNESS: I was asked to consult Jami Billings regarding a right ankle fracture that was sustained two weeks ago, after a fall. Dr. Carnes evalutated the patient and recommended one week follow up for x-ray surveillance. On follow up GILBERT Garcia had x-rays which showed displacement of a previously nondisplaced fracture. The patient was offered several treatments, and has elected to proceed with right ankle surgery. Right ankle xrays from 10/25/[address] Fitzpatrick and read as a nondisplaced fracture of the distal fibula. I did not have access to subsequent views, but was updated by Carlos Velez. ALLERGIES: None known to drugs. MEDICATIONS LIST: - citalopram hydrobromide 20 mg at bedtime - riluzole 125 mg by mouth twice a day - cyclobenzaprine HCl - tramadol HCl 50 mg at bedtime as needed for moderate pain - warfarin sodium 1 mg by mouth daily at bedtime MEDICAL PROBLEMS LIST: Includes: 1. Right ankle, displaced. 2. Amyotrophic lateral sclerosis (ALS) diagnosed two years ago with right greater than left extremity symptoms. 3. Deep vein thrombosis (DVT) of the right lower extremity which was diagnosed 10/19/2016. FAMILY HISTORY: Positive coronary artery disease for mother and three brothers. SOCIAL HISTORY: The patient does not intake ethanol, quit smoking six years ago. REVIEW OF SYSTEMS: She is denying chest pain, shortness of breath, dyspnea on exertion, fever, chills, malaise, upper respiratory or urinary tract symptoms. PHYSICAL EXAMINATION: VITAL SIGNS: Blood pressure 130/85, pulse 71, temperature 97.1. Oxygen 97%. Height 5 feet, 4 inches. Weight 178. She is a pleasant female in no acute distress. She is alert and oriented times three. Mood and affect are appropriate. She is resting comfortably in her electric wheelchair with her lowers extremities elevated on a pillow, right lower extremity splint is intact. She does have some swelling at the toes but good color and temperature. Left lower and bilateral upper extremities are grossly intact to motor and sensory, some right hand spastic feature. Normocephalic. Chest rises symmetrically. Lungs are clear to auscultation. Chest: Regular rate and rhythm. No x-rays taken today. IMPRESSION: Unstable right ankle fracture. PLAN: The patient was offered several options and has elected to proceed with right ankle open reduction and internal fixation for an unstable fracture. Postoperative expectations were discussed. The patient understands the risks and benefits has consented for surgery with Dr. Helder Carnes. The patient is being admitted by our hospital service and pending medical optimization will be setup for surgery tomorrow. She is currently on Coumadin with a planned heparin bridge. She understands and agrees with the plan. MAYI
[2016-11-09] MEDS: PERCOCET 5MG/325MG TAB PO PRN (20:20)
[2016-11-09] MEDS: CYCLOBENZAPRINE 5MG TABLET PO SCH (20:20)
[2016-11-09] MEDS: CitaloPRAM (CeleXA) 20 MG TAB PO SCH (20:20)
[2016-11-09 22:00] VITALS: BP 147/80
[2016-11-10] VITALS (7 sets, daily range): BP systolic 143–167; BP diastolic 82–92
[2016-11-10] MEDS: PERCOCET 5MG/325MG TAB PO PRN ×3 (00:02→20:10)
[2016-11-10] MEDS ORDERED: HEPARIN SOD (PORCINE) 5000 UNITS/ML VIAL IV PRN ×2 (01:00→18:00)
[2016-11-10] MEDS ORDERED: HEPARIN DRIP 25,000 UNITS in APPROPRIATE DILUENT 1 EA IV SCH (02:00)
[2016-11-10 06:03] LABS: MEAN CORPUSCULAR HEMOGLOBIN 29.4 pg (27.0-33.0); MEAN CORPUSCULAR HGB CONC 33.3 g/dl (32.0-36.5); MEAN CORPUSCULAR VOLUME 88.3 fl (80.0-96.0); RED CELL DISTRIBUTION WIDTH 13.6 % (11.5-14.5)
[2016-11-10 06:09] LABS: INR 1.49
[2016-11-10 06:19] LABS: ANION GAP 6 MEQ/L (8-16); BLOOD UREA NITROGEN 11 MG/DL (7-18); CALCIUM LEVEL 8.8 MG/DL (8.8-10.2); CARBON DIOXIDE LEVEL 27 MEQ/L (21-32); CHLORIDE LEVEL 107 MEQ/L (98-107); CREATININE FOR GFR 0.57 MG/DL (0.55-1.02); GLOMERULAR FILTRATION RATE > 60.0 (>45); GLUCOSE, FASTING 100 MG/DL (80-110); POTASSIUM SERUM 3.8 MEQ/L (3.5-5.1); SODIUM LEVEL 140 MEQ/L (136-145)
[2016-11-10] MEDS: RILUZOLE 50 MG PO SCH (08:34)
[2016-11-10] MEDS ORDERED: ceFAZolin 1GM INJ (J0690) As Ordered ONE ×2 (13:39→14:18)
[2016-11-10] MEDS ORDERED: BUPIVACAINE/EPIN 0.25% 30 ML VIAL As Ordered ONE (13:39)
[2016-11-10] MEDS ORDERED: LIDOCAINE 2% INJ 100 MG/5 ML SDV (FOR ANES.) As Ordered ONE (14:10)
[2016-11-10] MEDS ORDERED: PROPOFOL 200 MG/20 ML VIAL As Ordered ONE (14:10)
[2016-11-10] MEDS ORDERED: fentaNYL 250 MCG/5 ML INJECTION (J3010) As Ordered ONE (14:11)
[2016-11-10] MEDS ORDERED: MIDAZOLAM INJ 2 MG/2 ML VIAL (J2250) As Ordered ONE (14:11)
[2016-11-10] MEDS ORDERED: ONDANSETRON 4MG/2ML VIAL (J2405) As Ordered ONE (14:55)
[2016-11-10] MEDS ORDERED: dexameTHASONE 4 MG/ML 1ML VIAL (J1100) As Ordered ONE (14:55)
[2016-11-10] MEDS ORDERED: ePHEDrine SULFATE 25 MG/5 ML(5MG/ML) SYRINGE As Ordered ONE (15:01)
[2016-11-10] MEDS ORDERED: ceFAZolin 2 GM/D5W 50 ML IV BAG (J0690) As Ordered ONE (15:08)
--- NOTE | 2016-11-10 15:40 | IPNPDOC ---
Subjective Date Seen The patient was seen on 11/10/16. Subjective Chief Complaint/HPI The patient is a 61-year-old female admitted with a reason for visit of Ankle Fracture Left Dvt. General: Denies: Chills, Night Sweats Constitutional: Denies: Chills, Fever Eyes: Denies: Pain, Vision change ENT: Denies: Head Aches, Ear Pain Skin: Denies: Rash, Lesions Pulmonary: Denies: Dyspnea, Cough Cardiovascular: Denies: Chest Pain, Palpitations Gastrointestinal: Denies: Nausea, Vomiting Genitourinary: Denies: Dysuria, Frequency Hematologic: Denies: Bruising, Bleeding Excessively Musculoskeletal: Reports: Foot Pain (Right Ankle) Objective Physical Examination General Exam: Positive: Alert, Cooperative, No Acute Distress ENT Exam: Positive: Atraumatic, Mucous membr. moist/pink Neck Exam: Negative: JVD Chest Exam: Positive: Clear to auscultation, Normal air movement Heart Exam: Positive: Rate Normal, Normal S1, Normal S2 Abdomen Exam: Positive: Soft, Negative: Tenderness Extremity Exam: Positive: Other (Right Ankle noted to be wrapped in Surgical Dressing, Neurovascularly intact distally.) Assessment /Plan Plan/VTE VTE Prophylaxis Ordered?: Yes Plan Displaced Fracture of the Distal Right Fibula 2/2 Mechanical Fall Ortho to take patient for ORIF today Will defer pain mgmt and Anticoagulation to them Right Lower Extremity Deep Venous Thrombosis (DVT). S/p Lovenox SC dose last night and on Heparin gtt this AM Will transition back to Coumadin as per Ortho's recommendation Amyotrophic lateral sclerosis. Cont Riluzole Also taking phase 3 clinical trial medication (tirasemtiv). Follows with Neuro as an outpt Depression Cont on Celexa History of dysarthria and dysphagia 2/2 ALS On mechanical soft diet at baseline, currently NPO for surgery Deep venous thrombosis prophylaxis Will need to be on AC for DVT diagnosed last admission, will defer AC recommendations to Ortho VS, I&O, 24H, Fishbone Vital Signs/I&O Vital Signs Date Time Temp Pulse Resp B/P (MAP) Pulse Ox O2 Delivery O2 Flow Rate FiO2 11/10/16 09:04 18 11/10/16 07:15 Room Air 11/10/16 06:00 98.3 63 145/83 (103) 96 I&O- Last 24 Hours up to 6 AM 11/10/16 06:00 Intake Total 360 ml Output Total 0 ml Balance 360 ml Laboratory Data 24H LABS Laboratory Tests 2 11/09/16 15:45: White Blood Count 5.2, Red Blood Count 3.97L, Hemoglobin 11.5L, Hematocrit 35.0L , Mean Corpuscular Volume 88.3, Mean Corpuscular Hemoglobin 29.0, Mean Corpuscular Hemoglobin Concent 32.9, Red Cell Distribution Width 13.5, Platelet Count 369, Neutrophils (%) (Auto) 64.5, Lymphocytes (%) (Auto) 24.6, Monocytes ( %) (Auto) 7.8H, Eosinophils (%) (Auto) 1.5, Basophils (%) (Auto) 0.4, Neutrophils # (Auto) 3.4, Lymphocytes # (Auto) 1.4L, Monocytes # (Auto) 0.4, Eosinophils # (Auto) 0.1, Basophils # (Auto) 0.0, Large Unclassified Cells % 1.3 , Large Unclassified Cells # 0.1, Prothrombin Time 20.2H, Prothromb Time International Ratio 1.71, Anion Gap 7L, Glomerular Filtration Rate > 60.0, Blood Urea Nitrogen 8, Creatinine 0.48L, Sodium Level 142, Potassium Level 3.9, Chloride Level 107, Carbon Dioxide Level 28, Calcium Level 8.6L 11/10/16 05:51: Prothrombin Time 18.1H, Prothromb Time International Ratio 1.49, Anion Gap 6L, Glomerular Filtration Rate > 60.0, Blood Urea Nitrogen 11, Creatinine 0.57, Sodium Level 140, Potassium Level 3.8, Chloride Level 107, Carbon Dioxide Level 27, Calcium Level 8.8 CBC/BMP Laboratory Tests 11/09/16 15:45 Red Blood Count 3.97 L, Mean Corpuscular Volume 88.3, Mean Corpuscular Hemoglobin 29.0, Mean Corpuscular Hemoglobin Concent 32.9, Red Cell Distribution Width 13.5, Neutrophils (%) (Auto) 64.5, Lymphocytes (%) (Auto) 24.6, Monocytes (%) (Auto) 7.8 H, Eosinophils (%) (Auto) 1.5, Basophils (%) ( Auto) 0.4, Neutrophils # (Auto) 3.4, Lymphocytes # (Auto) 1.4 L, Monocytes # ( Auto) 0.4, Eosinophils # (Auto) 0.1, Basophils # (Auto) 0.0, Calcium Level 8.6 L 11/10/16 05:51 Red Blood Count 3.68 L, Mean Corpuscular Volume 88.3, Mean Corpuscular Hemoglobin 29.4, Mean Corpuscular Hemoglobin Concent 33.3, Red Cell Distribution Width 13.6, Calcium Level 8.8 IKE KRAMER MD November 10, 2016 15:39
[2016-11-10] MEDS ORDERED: fentaNYL 100 MCG/2 ML INJECTION (J3010) As Ordered ONE (16:43)
[2016-11-10] MEDS ORDERED: LR 1,000 ML IV SCH (16:45)
[2016-11-10] MEDS ORDERED: fentaNYL 100 MCG/2 ML INJECTION (J3010) IV PRN (16:45)
[2016-11-10] MEDS ORDERED: PERCOCET 5MG/325MG TAB PO PRN (16:45)
[2016-11-10] MEDS ORDERED: ONDANSETRON 4MG/2ML VIAL (J2405) IV PRN (16:45)
[2016-11-10] MEDS ORDERED: PERCOCET 5MG/325MG TAB As Ordered ONE (16:51)
[2016-11-10] MEDS ORDERED: HYDROmorphone HCL 1 MG/ML SYRINGE (J1170) As Ordered ONE (16:51)
[2016-11-10] MEDS: HYDROmorphone HCL 1 MG/ML SYRINGE (J1170) IV PRN ×5 (16:55→17:34)
[2016-11-10] MEDS ORDERED: ACETAMINOPHEN TAB 650MG DOSE (2X325MG) PO PRN (17:30)
[2016-11-10] MEDS ORDERED: MORPHINE 2 MG/ML 1ML SYRINGE IV PRN (17:30)
[2016-11-10] MEDS ORDERED: HEPARIN 25,000 UNITS/250 ML D5W BAG (100 UNITS/ML) As Ordered ONE (18:10)
[2016-11-10] MEDS: CYCLOBENZAPRINE 5MG TABLET PO SCH (20:10)
[2016-11-10] MEDS: CitaloPRAM (CeleXA) 20 MG TAB PO SCH (20:10)
[2016-11-10] MEDS: [UNRECOGNIZED DRUG - OTHER] PO SCH (20:11)
[2016-11-10] MEDS: ceFAZolin SOD 1 GM in D5W MINI-BAG PLUS 50 ML IV SCH (21:30)
[2016-11-11] MEDS: PERCOCET 5MG/325MG TAB PO PRN ×6 (00:45→23:21)
[2016-11-11 03:00] VITALS: BP 138/80
[2016-11-11] MEDS: ceFAZolin SOD 1 GM in D5W MINI-BAG PLUS 50 ML IV SCH (03:17)
[2016-11-11 06:00] VITALS: BP 150/81
[2016-11-11 08:06] LABS: MEAN CORPUSCULAR HEMOGLOBIN 29.6 pg (27.0-33.0); MEAN CORPUSCULAR HGB CONC 33.6 g/dl (32.0-36.5); MEAN CORPUSCULAR VOLUME 88.4 fl (80.0-96.0); RED CELL DISTRIBUTION WIDTH 13.7 % (11.5-14.5); WHITE BLOOD COUNT 6.8 K/mm3 (4.0-10.0)
--- NOTE | 2016-11-11 08:29 | REP ---
Right ankle series: Two views. History: Fracture. 36 seconds of fluoroscopy time is reported. Findings: A sequence of two fluoroscopically obtained last image hold spot radiographs of the right ankle document open reduction internal fixation for right ankle fracture. Signed by Jigar Meraz MD 11/11/2016 09:05 A
[2016-11-11] MEDS: MIRALAX *UNIT DOSE* 17GM PACKET PO SCH (08:33)
[2016-11-11] MEDS: MOM 30ML SUSPENSION UDC PO SCH (08:33)
[2016-11-11] MEDS: RILUZOLE 50 MG PO SCH (08:33)
[2016-11-11] MEDS: SENOKOT S TAB PO SCH ×2 (08:34→20:37)
[2016-11-11] MEDS: [UNRECOGNIZED DRUG - OTHER] PO SCH ×2 (08:34→20:37)
[2016-11-11 08:52] LABS: INR 1.1
[2016-11-11 08:58] LABS: ANION GAP 9 MEQ/L (8-16); BLOOD UREA NITROGEN 10 MG/DL (7-18); CALCIUM LEVEL 8.5 MG/DL (8.8-10.2); CARBON DIOXIDE LEVEL 25 MEQ/L (21-32); CHLORIDE LEVEL 106 MEQ/L (98-107); GLOMERULAR FILTRATION RATE > 60.0 (>45); GLUCOSE, FASTING 157 MG/DL (80-110); POTASSIUM SERUM 3.8 MEQ/L (3.5-5.1); SODIUM LEVEL 140 MEQ/L (136-145)
--- NOTE | 2016-11-11 10:38 | REP ---
Clinical: Status post open reduction and fixation. Technique: AP, lateral, bilateral oblique views of the right at ankle. Findings: The patient is status post open reduction and fixation with plate and screws overlying the distal fibula as well as two compression screws at the site of medial malleolar fracture. Hardware appears in place and satisfactorily positioned. Fractures demonstrate satisfactory alignment. Visualized portions of the ankle mortise appear intact. Overlying soft tissue swelling noted. Impression: Status post open reduction and fixation for medial and lateral malleolar fractures. Signed by Akbar hSaver MD 11/11/2016 10:30 A
--- NOTE | 2016-11-11 12:25 | IPNPDOC ---
Subjective Date Seen The patient was seen on 11/11/16. Subjective Chief Complaint/HPI The patient is a 61-year-old female admitted with a reason for visit of Ankle Fracture Left Dvt. General: Denies: Chills, Night Sweats Constitutional: Denies: Chills, Fever Eyes: Denies: Pain, Vision change ENT: Denies: Head Aches, Ear Pain Skin: Denies: Rash, Lesions Pulmonary: Denies: Dyspnea, Cough Cardiovascular: Denies: Chest Pain, Palpitations Gastrointestinal: Denies: Nausea, Vomiting Genitourinary: Denies: Dysuria, Frequency Hematologic: Denies: Bruising, Bleeding Excessively Objective Physical Examination General Exam: Positive: Alert, Cooperative, No Acute Distress ENT Exam: Positive: Atraumatic, Mucous membr. moist/pink Neck Exam: Negative: JVD Chest Exam: Positive: Clear to auscultation, Normal air movement Heart Exam: Positive: Rate Normal, Normal S1, Normal S2 Abdomen Exam: Positive: Soft, Negative: Tenderness Extremity Exam: Positive: Other (Right Ankle noted to be wrapped in Surgical Dressing, Neurovascularly intact distally.) Assessment /Plan Plan/VTE VTE Prophylaxis Ordered?: Yes Plan Displaced Fracture of the Distal Right Fibula 2/2 Mechanical Fall s/p ORIF on 11/10/16 Will defer pain mgmt to Ortho Right Lower Extremity Deep Venous Thrombosis (DVT). On Heparin gtt for bridging, Coumadin started today Will follow up on INR Amyotrophic lateral sclerosis. Cont Riluzole Also taking phase 3 clinical trial medication (tirasemtiv). Follows with Neuro as an outpt Depression Cont on Celexa History of dysarthria and dysphagia 2/2 ALS On mechanical soft diet at baseline Deep venous thrombosis prophylaxis On Heparin gtt bridge to Coumadin VS, I&O, 24H, Fishbone Vital Signs/I&O Vital Signs Date Time Temp Pulse Resp B/P (MAP) Pulse Ox O2 Delivery O2 Flow Rate FiO2 11/11/16 09:04 18 11/11/16 06:00 98.2 78 150/81 (104) 97 Nasal Cannula 2.0 I&O- Last 24 Hours up to 6 AM 11/11/16 06:00 Intake Total 1410 ml Output Total 1250 ml Balance 160 ml Laboratory Data 24H LABS Laboratory Tests 2 11/10/16 18:15: Activated Partial Thromboplast Time 34.5 11/11/16 01:55: Activated Partial Thromboplast Time 77.0H 11/11/16 07:59: Activated Partial Thromboplast Time 72.6H, Prothrombin Time 14.3, Prothromb Time International Ratio 1.10, Anion Gap 9, Glomerular Filtration Rate > 60.0, Blood Urea Nitrogen 10, Creatinine 0.60, Sodium Level 140, Potassium Level 3.8, Chloride Level 106, Carbon Dioxide Level 25, Calcium Level 8.5L CBC/BMP Laboratory Tests 11/11/16 07:59 Red Blood Count 3.64 L, Mean Corpuscular Volume 88.4, Mean Corpuscular Hemoglobin 29.6, Mean Corpuscular Hemoglobin Concent 33.6, Red Cell Distribution Width 13.7, Calcium Level 8.5 L IKE KRAMER MD November 11, 2016 12:25
[2016-11-11] MEDS: HEPARIN DRIP 25,000 UNITS in APPROPRIATE DILUENT 1 EA IV SCH (14:16)
[2016-11-11] MEDS ORDERED: WARFARIN SOD 2 MG TAB PO SCH (17:00)
[2016-11-11] MEDS: CitaloPRAM (CeleXA) 20 MG TAB PO SCH (20:37)
[2016-11-11] MEDS: CYCLOBENZAPRINE 5MG TABLET PO SCH (20:37)
[2016-11-11 22:00] VITALS: BP 139/67
[2016-11-12] MEDS: PERCOCET 5MG/325MG TAB PO PRN ×4 (04:58→23:55)
[2016-11-12 06:00] VITALS: BP 128/70
[2016-11-12 06:56] LABS: MEAN CORPUSCULAR HEMOGLOBIN 29.9 pg (27.0-33.0); MEAN CORPUSCULAR HGB CONC 33.5 g/dl (32.0-36.5); MEAN CORPUSCULAR VOLUME 89.2 fl (80.0-96.0); RED CELL DISTRIBUTION WIDTH 13.8 % (11.5-14.5); WHITE BLOOD COUNT 5.7 K/mm3 (4.0-10.0)
[2016-11-12 06:59] LABS: INR 1.15
[2016-11-12 07:08] LABS: ANION GAP 5 MEQ/L (8-16); BLOOD UREA NITROGEN 14 MG/DL (7-18); CARBON DIOXIDE LEVEL 29 MEQ/L (21-32); CHLORIDE LEVEL 107 MEQ/L (98-107); CREATININE FOR GFR 0.49 MG/DL (0.55-1.02); GLOMERULAR FILTRATION RATE > 60.0 (>45); GLUCOSE, FASTING 102 MG/DL (80-110); POTASSIUM SERUM 3.8 MEQ/L (3.5-5.1); SODIUM LEVEL 141 MEQ/L (136-145)
[2016-11-12] MEDS: SENOKOT S TAB PO SCH ×2 (09:19→19:50)
[2016-11-12] MEDS: RILUZOLE 50 MG PO SCH (09:19)
[2016-11-12] MEDS: MOM 30ML SUSPENSION UDC PO SCH (09:19)
[2016-11-12] MEDS: MIRALAX *UNIT DOSE* 17GM PACKET PO SCH (09:19)
[2016-11-12] MEDS: [UNRECOGNIZED DRUG - OTHER] PO SCH ×2 (09:21→19:51)
[2016-11-12] MEDS: HEPARIN DRIP 25,000 UNITS in APPROPRIATE DILUENT 1 EA IV SCH (10:30)
--- NOTE | 2016-11-12 14:44 | IPNPDOC ---
Subjective Date Seen The patient was seen on 11/12/16. Subjective Chief Complaint/HPI The patient is a 61-year-old female admitted with a reason for visit of Ankle Fracture Left Dvt. General: Denies: Chills, Night Sweats Constitutional: Denies: Chills, Fever Eyes: Denies: Pain, Vision change ENT: Denies: Head Aches, Ear Pain Skin: Denies: Rash, Lesions Pulmonary: Denies: Dyspnea, Cough Cardiovascular: Denies: Chest Pain, Palpitations Gastrointestinal: Denies: Nausea, Vomiting Genitourinary: Denies: Dysuria, Frequency Hematologic: Denies: Bruising, Bleeding Excessively Objective Physical Examination General Exam: Positive: Alert, Cooperative, No Acute Distress ENT Exam: Positive: Atraumatic, Mucous membr. moist/pink Neck Exam: Negative: JVD Chest Exam: Positive: Clear to auscultation, Normal air movement Heart Exam: Positive: Rate Normal, Normal S1, Normal S2 Abdomen Exam: Positive: Soft, Negative: Tenderness Extremity Exam: Positive: Other (Right Ankle noted to be wrapped in Surgical Dressing, Neurovascularly intact distally.) Assessment /Plan Plan/VTE VTE Prophylaxis Ordered?: Yes Plan Displaced Fracture of the Distal Right Fibula 2/2 Mechanical Fall s/p ORIF on 11/10/16 Will defer pain mgmt to Ortho Right Lower Extremity Deep Venous Thrombosis (DVT). On Heparin gtt for bridging, Coumadin dose increased today INR 1.15 today-->Will follow up on INR after dose adjustment Amyotrophic lateral sclerosis. Cont Riluzole Also taking phase 3 clinical trial medication (tirasemtiv). Follows with Neuro as an outpt Depression Cont on Celexa History of dysarthria and dysphagia 2/2 ALS On mechanical soft diet at baseline Deep venous thrombosis prophylaxis On Heparin gtt bridge to Coumadin Disposition- We will consider starting the patient on Lovenox 80 Units SC BID starting tomorrow, which the patient can complete with bridging at home VS, I&O, 24H, Fishbone Vital Signs/I&O Vital Signs Date Time Temp Pulse Resp B/P (MAP) Pulse Ox O2 Delivery O2 Flow Rate FiO2 11/12/16 14:22 16 11/12/16 14:08 95 Room Air 11/12/16 07:30 2.0 11/12/16 06:00 97.1 66 128/70 (89) I&O- Last 24 Hours up to 6 AM 11/12/16 06:00 Intake Total 492 ml Output Total 0 ml Balance 492 ml Laboratory Data 24H LABS Laboratory Tests 2 11/12/16 06:14: Prothrombin Time 14.8H, Prothromb Time International Ratio 1.15, Activated Partial Thromboplast Time 118.1H, Anion Gap 5L, Glomerular Filtration Rate > 60.0, Blood Urea Nitrogen 14, Creatinine 0.49L, Sodium Level 141, Potassium Level 3.8, Chloride Level 107, Carbon Dioxide Level 29, Calcium Level 8.0L CBC/BMP Laboratory Tests 11/12/16 06:14 Red Blood Count 3.27 L, Mean Corpuscular Volume 89.2, Mean Corpuscular Hemoglobin 29.9, Mean Corpuscular Hemoglobin Concent 33.5, Red Cell Distribution Width 13.8, Calcium Level 8.0 L IKE KRAMER MD November 12, 2016 14:44
[2016-11-12] MEDS ORDERED: WARFARIN SOD 4 MG TAB PO ONE (17:00)
[2016-11-12] MEDS: CitaloPRAM (CeleXA) 20 MG TAB PO SCH (19:51)
[2016-11-12] MEDS: CYCLOBENZAPRINE 5MG TABLET PO SCH (19:51)
[2016-11-12 20:41] VITALS: O2SAT 95
[2016-11-12 22:00] VITALS: BP 118/62
[2016-11-13 06:00] VITALS: BP 111/59
[2016-11-13 06:40] LABS: MEAN CORPUSCULAR HEMOGLOBIN 28.9 pg (27.0-33.0); MEAN CORPUSCULAR HGB CONC 31.7 g/dl (32.0-36.5); MEAN CORPUSCULAR VOLUME 91.3 fl (80.0-96.0); RED CELL DISTRIBUTION WIDTH 13.7 % (11.5-14.5); WHITE BLOOD COUNT 5.7 K/mm3 (4.0-10.0)
[2016-11-13 06:45] LABS: INR 1.16
[2016-11-13 07:02] LABS: ANION GAP 3 MEQ/L (8-16); BLOOD UREA NITROGEN 12 MG/DL (7-18); CALCIUM LEVEL 8.6 MG/DL (8.8-10.2); CARBON DIOXIDE LEVEL 32 MEQ/L (21-32); CHLORIDE LEVEL 105 MEQ/L (98-107); CREATININE FOR GFR 0.49 MG/DL (0.55-1.02); GLOMERULAR FILTRATION RATE > 60.0 (>45); GLUCOSE, FASTING 94 MG/DL (80-110); POTASSIUM SERUM 4.1 MEQ/L (3.5-5.1); SODIUM LEVEL 140 MEQ/L (136-145)
[2016-11-13] MEDS ORDERED: BISAC5TA PO (08:01)
[2016-11-13] MEDS ORDERED: LOVE0.6I2 SC ×2 (08:01→10:29)
[2016-11-13] MEDS ORDERED: PERCOCET PO (08:01)
[2016-11-13] MEDS ORDERED: COUM1TAB14 PO (08:01)
[2016-11-13] MEDS ORDERED: SENN1TAB2 PO (08:01)
[2016-11-13] MEDS: RILUZOLE 50 MG PO SCH (08:48)
[2016-11-13] MEDS: SENOKOT S TAB PO SCH (08:48)
[2016-11-13] MEDS: PERCOCET 5MG/325MG TAB PO PRN (08:48)
[2016-11-13] MEDS: [UNRECOGNIZED DRUG - OTHER] PO SCH (08:48)
[2016-11-13] MEDS ORDERED: ENOXAPARIN 80 MG/0.8 ML SYRINGE (J1650) SC SCH (09:00)
[2016-11-13] MEDS: MOM 30ML SUSPENSION UDC PO SCH (10:15)
[2016-11-13] MEDS: MIRALAX *UNIT DOSE* 17GM PACKET PO SCH (10:16)
[2016-11-13] MEDS ORDERED: WARFARIN SOD 10 MG TAB PO ONE ×2 (12:00→17:00)
--- NOTE | 2016-11-13 14:21 | DS.PDOC ---
Discharge Summary General Date of Admission November 09, 2016 at 14:04 Date of Discharge 11/13/16 Specialist/Consultants Involve: Helder Carnes MD Discharge Summary PROCEDURES PERFORMED DURING STAY: ORIF of Right Ankle ADMITTING DIAGNOSES: 1. . Displaced fracture of the distal fibula on the right 2. History of Right lower extremity DVT on Coumadin 3. History of ALS DISCHARGE DIAGNOSES: 1. . Displaced fracture of the distal fibula on the right status post ORIF 2. History of Right lower extremity DVT on Coumadin 3. History of ALS COMPLICATIONS/CHIEF COMPLAINT: Ankle Fracture Right. HISTORY OF PRESENT ILLNESS: . 61-year-old female with past medical history of ALS, and recent admission to [facility] from 10/21-10/29 for a right lower extremity DVT and nondisplaced fracture of the right distal fibula presented to the ER on 11/09 with a chief complaint of worsening leg pain and swelling at the site of the ankle fracture. The patient states that she went to see her orthopedic surgeon on Wednesday and another x-ray done in the clinic found that the patient's fracture had been displaced. Patient subsequently came to the ER for further evaluation and management. During hospitalization, the patient was seen by orthopedic surgery and her options for treatment were discussed. The patient subsequently went for open reduction internal fixation of the ankle fracture on 11/11/16. The patient's Coumadin was reversed in an effort to have the surgery. At this time, the patient has been restarted on her Coumadin with bridging done with subcutaneous Lovenox 80 mg twice a day. The patient and her have been trained on how to use subcutaneous injections and feel comfortable doing so. The patient will be discharged on dosing instructions for Coumadin over the next 3 days as well as subcutaneous Lovenox shots as prescribed. I contacted the patient's primary care physician, Dr. Meneses who will follow-up with an INR on Wednesday and further adjust Coumadin dosing from there. DISCHARGE MEDICATIONS: Please see below. ALLERGIES: Please see below. PHYSICAL EXAMINATION ON DISCHARGE: VITAL SIGNS: Please see below. General Exam: Positive: Alert, Cooperative, No Acute Distress ENT Exam: Positive: Atraumatic, Mucous membr. moist/pink Neck Exam: Negative: JVD Chest Exam: Positive: Clear to auscultation, Normal air movement Heart Exam: Positive: Rate Normal, Normal S1, Normal S2 Abdomen Exam: Positive: Soft, Negative: Tenderness Extremity Exam: Positive: Other (Right Ankle noted to be wrapped in Surgical Dressing, Neurovascularly intact distally.) LABORATORY DATA: Please see below. IMAGING: Clinical: Status post open reduction and fixation. Technique: AP, lateral, bilateral oblique views of the right at ankle. Findings: The patient is status post open reduction and fixation with plate and screws overlying the distal fibula as well as two compression screws at the site of medial malleolar fracture. Hardware appears in place and satisfactorily positioned. Fractures demonstrate satisfactory alignment. Visualized portions of the ankle mortise appear intact. Overlying soft tissue swelling noted. Impression: Status post open reduction and fixation for medial and lateral malleolar fractures. PROGNOSIS: ACTIVITY: As tolerated. DIET: . 2 g low sodium diet DISCHARGE PLAN: DISPOSITION: . Home DISCHARGE INSTRUCTIONS: 1. . Follow-up with orthopedic surgery within 2-3 weeks 2. . Follow-up with primary care physician within one week 3. . Follow-up INR in 3 days DISCHARGE CONDITION: Stable. TIME SPENT ON DISCHARGE: Greater than 30 minutes. Vital Signs/I&Os Vital Signs Date Time Temp Pulse Resp B/P (MAP) Pulse Ox O2 Delivery O2 Flow Rate FiO2 11/13/16 09:30 18 11/13/16 06:00 97.9 75 111/59 (76) 91 Nasal Cannula 2.0 I&O- Last 24 Hours up to 6 AM 11/13/16 06:00 Intake Total 600 ml Output Total 0 ml Balance 600 ml Laboratory Data Labs 24H Laboratory Tests 2 11/12/16 16:27: Activated Partial Thromboplast Time 64.8H 11/12/16 22:30: Activated Partial Thromboplast Time 57.1H 11/13/16 06:15: Activated Partial Thromboplast Time 117.6H, Prothrombin Time 14.9H, Prothromb Time International Ratio 1.16, Anion Gap 3L, Glomerular Filtration Rate > 60.0, Blood Urea Nitrogen 12, Creatinine 0.49L, Sodium Level 140, Potassium Level 4.1 , Chloride Level 105, Carbon Dioxide Level 32, Calcium Level 8.6L CBC/BMP Laboratory Tests 11/13/16 06:15 Red Blood Count 3.48 L, Mean Corpuscular Volume 91.3, Mean Corpuscular Hemoglobin 28.9, Mean Corpuscular Hemoglobin Concent 31.7 L, Red Cell Distribution Width 13.7, Calcium Level 8.6 L Discharge Medications Scheduled (Senna Plus 8.6-50 mg) 1 Tab Tab, 1 TAB PO BID Citalopram Hydrobromide (Citalopram Hydrobromide) 20 Mg Tab, 20 MG PO QHS, ( Reported) Cyclobenzaprine HCl (Cyclobenzaprine HCl) 5 Mg Tab, 5 MG PO QHS, (Reported) may take up to 10mg qhs prn Enoxaparin (Lovenox) 80 Mg/0.8 Ml Syr, 80 MG SC BID Riluzole (Riluzole) 50 Mg Tab, 50 MG PO DAILY, (Reported) Warfarin Sod (Coumadin) 4 Mg Tab, 4 MG PO DAILY [tirasemtiv] 125 TAB, 125 MG PO BID, (Reported) *EXPERIMENTAL DRUG* Scheduled PRN Bisacodyl (Bisacodyl EC) 5 Mg Tab, 5 MG PO DAILYPRN PRN for CONSTIPATION Oxycodone/Acetaminophen (Percocet 5MG/325MG Tablet) 1 Tab Tab, 2 TAB PO Q4HP PRN for SEVERE PAIN (PS 8-10) Tramadol HCl (Tramadol HCl) 50 Mg Tab, 50 MG PO QHS PRN for MODERATE PAIN (PS 5- 7), (Reported) Allergies Coded Allergies: No Known Allergies (Unverified , 10/21/16) IKE KRAMER MD November 13, 2016 14:21
--- NOTE | 2016-11-16 19:43 | RO ---
DATE OF PROCEDURE: 11/10/2016 PREOPERATIVE DIAGNOSIS: Right ankle bimalleolar fracture displaced. POSTOPERATIVE DIAGNOSIS: Right ankle bimalleolar fracture displaced. PROCEDURE: Open reduction internal fixation (ORIF) of right ankle bimalleolar fracture of the medial malleolus as well as the lateral malleolus. SURGEON: Dr. Carnes EXCEL SPECIALIST: None. ANESTHESIA: General. ESTIMATED BLOOD LOSS: Less than 30 mL. COMPLICATIONS: No complications. COMPONENTS USED: Synthes one-third 7 hole semitubular plate and 4-0 cannulated screws times two as well as the appropriate cortical cancellus screws in the fibula. INDICATIONS: 61-year-old female who unfortunately had a weight loss of reduction after bimalleolar fracture and now elects for operative intervention. Consent reviewed in detail with the patient including a kathy discussion of the pathology involved, procedure proposed, alternatives including doing nothing, risks including not limited to pain, failure, deformity, infection, need for more surgery, stiffness or some other problems. The patient wants to proceed. OPERATIVE COURSE: Identified in the holding area, site and side verified, brought to the operating room. Once anesthesia was administered, she was positioned for exposure of the right lower extremity. We did inflate a tourniquet. Next, we began the lateral incision first. Began the lateral incision first outlined incision with marking pen infiltrated of 0.25% Marcaine made incision with 10 blade knife developed down through subcuticular tissues to the lateral surface of the fibula. The fibula was appreciated to be displaced and shortened. I freed soft tissue around the fracture site and then reduced the fracture site with a fracture reduction clamp. Next, I placed a AP lag screw across the fracture and this seemed to sustain the reduction and allowed removal of the fracture reduction clamp. Next, contoured and placed the 7-hole semitubular plate, distally utilized cancellus screws, proximally utilized four cortical screws. Next, turned attention to medial malleolus. Incision made anterior to the medial malleolus and developed down through subcuticular tissues. Protected saphenous veins exposed fracture, reduced fracture, and pinned fracture in reduced position, verified position fluoroscopically. I then placed 34 and 36 mm cannulated screws over guidewire. I predrilled for the screws at the proximal end. Final fluoroscopic images reflected adequate reduction with very minimal widening of the mortise. No opening of the mortise with additional stress. Next, wounds were irrigated, closed with interrupted stitch as well as teddy. Sterile dressing was applied and we placed a short-leg plaster cast. The patient was moved to recovery room in good condition. Hospitalists were consulted to help with bridge therapy via heparin because of comorbidities including deep venous thrombosis (DVT).
== END 2016-11-13 14:30 | disposition home or self-care (01) | DRG 313 ==
LOC: M ED 13:50 → M ED INP 14:04 → M MS5PR 16:20
PROVIDERS: ADMIT Internal Medicine; ATTEND Internal Medicine
PROC: 0QSG06Z Reposition Right Tibia with Intramedullary Internal Fixation Device, Open Approach (ICD-10-PCS; 2016-11-10)
PROC: 0QSJ06Z Reposition Right Fibula with Intramedullary Internal Fixation Device, Open Approach (ICD-10-PCS; principal; 2016-11-10 14:30)
DX: S82.841A Displaced bimalleolar fracture of right lower leg, initial encounter for closed fracture (principal); I82.401 Acute embolism and thrombosis of unspecified deep veins of right lower extremity; G12.21 Amyotrophic lateral sclerosis; F32.9 Major depressive disorder, single episode, unspecified; Z86.718 Personal history of other venous thrombosis and embolism; Z79.01 Long term (current) use of anticoagulants; Z79.899 Other long term (current) drug therapy; Z98.51 Tubal ligation status; Z87.891 Personal history of nicotine dependence; Z82.49 Family history of ischemic heart disease and other diseases of the circulatory system; Z82.5 Family history of asthma and other chronic lower respiratory diseases; X58.XXXA Exposure to other specified factors, initial encounter; Y92.9 Unspecified place or not applicable; Y99.9 Unspecified external cause status; Y93.9 Activity, unspecified

== ENCOUNTER → 2017-03-19 | Outpatient (CLI) | payer BC, MEDICARE ==
[~2017-03-19] MED LIST changes: +ACET50TAOT PO; +BISAC5TA PO; -CALC600T21 PO; +CALC600T60 PO; +CEPH500C PO; +COUM1TAB14 PO; -COUM2TAB10 PO; +COUM2TAB22 PO; -CYCL5TA PO; +CYCL5TAB PO; -GUAI60TA PO; +LACT1TAB4 PO; +LOVE0.6I2 SC; +MAGN500T2 PO; +MIRA33504 PO; +MUCI600T31 PO; +NYST10CR TOP; +NYST1POW9 TOP; +OXYB10TA PO; +OXYC1SOL5 PO; +OXYC1TAB23 PO; +PERCOCET PO; +POLY1POW4 PO; +SENN1TAB10 PO; +SENN1TAB2 PO; +SENNSYP PO; -UBIQ100C PO; +UBIQ100C3 PO; +VENTAER INH; +WARF4TAB51 PO; +WARF4TAB52 PO
--- NOTE | 2017-03-19 10:00 | REP ---
CT of the abdomen without IV or oral contrast. The pelvis is not included. Patient history states a amyotrophic lateral sclerosis and PEG tube. There are no comparison studies. The visualized lung herman demonstrate discoid atelectasis in the lower lobes bilaterally and in the inferior tip of the lingula. The unenhanced hepatic parenchyma is unremarkable. The gallbladder is unremarkable. The pancreas and spleen are unremarkable. I do not identify a peg tube by CT at this time. The stomach is grossly unremarkable by CT. There is a small hiatal hernia. The unenhanced adrenals and kidneys are unremarkable. The abdominal aorta is unremarkable. There is no bowel distension. There is abundant fecal residue throughout the colon. The mesentery is unremarkable. No ascites is identified. There is no retroperitoneal or mesenteric adenopathy. Impression: Discoid atelectasis in the lower lobes bilaterally and in the inferior tip of the lingula. Small hiatal hernia. No ascites, adenopathy or mass. Abundant fecal residue throughout the colon. No peg tube is identified by CT at this time. Signed by Joe Eagle MD 03/19/2017 09:52 A
== END ==
LOC: M RAD 09:09
PROVIDERS: ATTEND Psychiatry & Neurology Neurology
DX: G12.21 Amyotrophic lateral sclerosis (principal); J98.11 Atelectasis; K44.9 Diaphragmatic hernia without obstruction or gangrene

== ENCOUNTER → 2017-04-21 | Outpatient (REF) | payer BC, MEDICARE ==
[~2017-04-21] MED LIST changes: +AMOX875T2 PO; +OXYB5TAB10 PO
== END ==
LOC: M SMT 12:39
PROVIDERS: ATTEND Nurse Practitioner Women's Health
DX: Z01.818 Encounter for other preprocedural examination (principal); R39.81 Functional urinary incontinence; G12.21 Amyotrophic lateral sclerosis
CPT/HCPCS: 51798; 81001; 87086; G0463

== ENCOUNTER 2017-05-09 14:39 | Inpatient (IN) | payer BC, MEDICARE ==
[~2017-05-09] VITALS: Ht 162.6 cm; Wt 73.6 kg
[~2017-05-09 14:39] MED LIST changes: -ACET50TAOT PO; -AMOX875T2 PO; -CEPH500C PO; -LACT1TAB4 PO; -MAGN500T2 PO; -MIRA33504 PO; -NYST10CR TOP; -NYST1POW9 TOP; -OXYB10TA PO; -OXYB5TAB10 PO; -OXYC1SOL5 PO; -OXYC1TAB23 PO; -POLY1POW4 PO; -SENN1TAB10 PO; -SENNSYP PO; -WARF4TAB51 PO
[2017-05-09] MEDS ORDERED: OXYB10TA PO (15:03)
[2017-05-09] MEDS ORDERED: OXYC1SOL5 PO (15:03)
[2017-05-09] MEDS ORDERED: SENNSYP PO (15:03)
[2017-05-09] MEDS ORDERED: CEPH500C PO (15:03)
[2017-05-09] MEDS ORDERED: MAGN500T2 PO (15:03)
[2017-05-09] MEDS ORDERED: WARF4TAB51 PO (15:03)
[2017-05-09] MEDS ORDERED: CHEL50TA PO (15:03)
[2017-05-09] MEDS ORDERED: POLY1POW4 PO (15:03)
[2017-05-09 15:21] LABS: BASO % 0.5 % (0.0-1.0); EOS # 0.1 10^3/uL (0.0-0.50); EOS % 1.1 % (0.0-3.0); IMMATURE GRANULOCYTE % 0.2 % (0-0); LYMPH # 0.6 10^3/uL (1.5-4.5); MEAN CORPUSCULAR HEMOGLOBIN 29.5 pg (27.0-33.0); MEAN CORPUSCULAR HGB CONC 32.7 g/dl (32.0-36.5); MEAN CORPUSCULAR VOLUME 90.2 fl (80.0-96.0); MONO # 0.6 10^3/uL (0.0-0.8); MONO % 9.5 % (0.0-5.0); NEUTROPHILS # 4.8 10^3/uL (1.8-7.7); NEUTROPHILS % 78.7 % (36.0-66.0); PLATELET COUNT, AUTOMATED 285 10^3/uL (150-450); RED CELL DISTRIBUTION WIDTH 12.3 % (11.5-14.5); WHITE BLOOD COUNT 6.1 10^3/uL (4.0-10.0)
--- NOTE | 2017-05-09 15:28 | REP ---
Chest one-view HISTORY: Cough Comparison: 05/03/2017 Linear density is present in the right lower lobe consistent with atelectasis or scar. The left lung is clear. The heart is normal in size. The pulmonary vasculature is normal in appearance. Impression: Right lower lobe atelectasis or scar. Signed by Lamine Fitzpatrick MD 05/09/2017 03:20 P
[2017-05-09 15:32] LABS: INR 1.37
[2017-05-09 15:51] LABS: ANION GAP 7 MEQ/L (8-16); BLOOD UREA NITROGEN 8 MG/DL (7-18); CALCIUM LEVEL 8.9 MG/DL (8.8-10.2); CARBON DIOXIDE LEVEL 28 MEQ/L (21-32); CHLORIDE LEVEL 106 MEQ/L (98-107); CREATININE FOR GFR 0.34 MG/DL (0.55-1.02); GLOMERULAR FILTRATION RATE > 60.0 (>45); GLUCOSE, FASTING 108 MG/DL (80-110); POTASSIUM SERUM 4.1 MEQ/L (3.5-5.1); SODIUM LEVEL 141 MEQ/L (136-145)
[2017-05-09 15:54] LABS: ABG BASE EXCESS 1.5 (-2.0-2.0); ABG HCO3 25.8 MEQ/L (22.0-26.0); ABG PARTIAL PRESSURE CO2 39.8 mmHg (35.0-45.0); ABG PARTIAL PRESSURE O2 74.1 mmHg (75.0-100.0); ABG STANDARD HCO3 25.7 MEQ/L (22.0-26.0)
[2017-05-09] MEDS ORDERED: IPRATROPIUM 0.5MG/ALBUTEROL 2.5MG INH SOL UD 3ML (DUONEB)(J7620) NEB ONE (16:30)
[2017-05-09] MEDS ORDERED: ISOVUE-370 76% 100ML VIAL (Q9967) As Ordered ONE (16:34)
--- NOTE | 2017-05-09 18:10 | REPUSA ---
CLINICAL HISTORY: exclude PE. TECHNIQUE: Multiple incremental axial, coronal and oblique images are obtained from the thoracic inle t to the upper abdomen. Intravenous contrast material was administered as per pulmonary embolism prot ocol. COMMENTS: There is excellent opacification of pulmonary arterial system without evidence for pulmonary embolism . Aorta is of normal caliber without evidence for dissection or aneurysm. Bibasilar consolidations are compataible with pneumonia. There is no evidence of pleural or parenchymal mass. There are no pleural effusions. There is no evid ence of hilar or mediastinal lymphadenopathy. The heart and great vessels are within normal limits. Images of the upper abdomen demonstrate no evidence of adrenal mass. The bony structures are free of lytic or blastic lesions. Multilevel degenerative changes are seen in volving the visualized thoracolumbar spine. Scattered calcifications are seen involving the aorta and major branches compatible with atherosclero sis. IMPRESSION: No evidence for pulmonary embolism. Bibasilar consolidations are compataible with pneumonia. Thank you for your kind referral of this patient.
[2017-05-09] MEDS ORDERED: PIPERACILLIN/TAZOBACTAM SOD 3.375 GM in D5W 50 ML IV ONE (18:15)
[2017-05-09] MEDS ORDERED: NS 1,000 ML IV SCH (18:41)
[2017-05-09] MEDS ORDERED: BISACODYL 5 MG TAB PO PRN (18:45)
[2017-05-09] MEDS ORDERED: ACETAMINOPHEN 650 MG SUPP PR PRN (18:45)
[2017-05-09] MEDS ORDERED: METOCLOPRAMIDE INJ 10MG/2ML VIAL (J2765) IV PRN (18:45)
[2017-05-09] MEDS ORDERED: IPRATROPIUM 0.5MG/ALBUTEROL 2.5MG INH SOL UD 3ML (DUONEB)(J7620) NEB PRN (18:45)
[2017-05-09] MEDS ORDERED: ONDANSETRON 4MG/2ML VIAL (J2405) IV PRN (18:45)
[2017-05-09] MEDS ORDERED: MIRA33504 PO (18:48)
[2017-05-09] MEDS ORDERED: OXYC1TAB23 PO (18:48)
[2017-05-09] MEDS ORDERED: SENN1TAB10 PO (18:48)
[2017-05-09] MEDS ORDERED: WARF4TAB52 PO (18:48)
[2017-05-09] MEDS ORDERED: NYST10CR TOP (18:51)
[2017-05-09] MEDS ORDERED: NYST1POW9 TOP (18:51)
--- NOTE | 2017-05-09 18:52 | IPNPDOC ---
Text Note Date of Service The patient was seen on 05/09/17. NOTE Patient seen and examined. ALS. Likely postoperative aspiration vs healthcare associated pneumonia (DRIP >4). Needs speech therapy, possibly impaired swallow. Appropriate antibiotics orders. GI panel noted. Full code. Case discussed with at bedside. VS,Fishbone, I+O VS, Fishbone, I+O Laboratory Tests 05/09/17 15:14 Red Blood Count 4.37, Mean Corpuscular Volume 90.2, Mean Corpuscular Hemoglobin 29.5, Mean Corpuscular Hemoglobin Concent 32.7, Red Cell Distribution Width 12.3 , Neutrophils (%) (Auto) 78.7 H, Lymphocytes (%) (Auto) 10.0 L, Monocytes (%) ( Auto) 9.5 H, Eosinophils (%) (Auto) 1.1, Basophils (%) (Auto) 0.5, Neutrophils # (Auto) 4.8, Lymphocytes # (Auto) 0.6 L, Monocytes # (Auto) 0.6, Eosinophils # (Auto) 0.1, Basophils # (Auto) 0.0, Calcium Level 8.9, Total Creatine Kinase 69 Vital Signs Date Time Temp Pulse Resp B/P (MAP) Pulse Ox O2 Delivery O2 Flow Rate FiO2 05/09/17 17:44 96 137/96 (110) 96 05/09/17 14:43 96.0 20 Room Air MITCH ESCOBEDO MD May 09, 2017 18:52
[2017-05-09] MEDS ORDERED: LACT1TAB4 PO (18:53)
[2017-05-09] MEDS ORDERED: MUCI600T31 PO (18:53)
[2017-05-09] MEDS ORDERED: ACET50TAOT PO (18:54)
[2017-05-09] MEDS ORDERED: NS 500 ML IV ONE (19:00)
[2017-05-09] MEDS ORDERED: NYSTATIN 100,000 UNITS/GM TOPICAL PWD 15 GM TOP PRN (19:00)
--- NOTE | 2017-05-09 19:58 | HPE ---
DATE OF ADMISSION: 05/09/2017 Time the patient was seen was at 6:20 p.m. The patient's primary care provider is Dr. Kaleb Meneses. The patient's neurologist is Dr. Saldana at [facility] in [place]. The patient's urologist is Dr. Uriostegui. CHIEF COMPLAINT: Shortness of breath and increased cough and sputum production and also diarrhea. HISTORY OF PRESENT ILLNESS: A 61-year-old with past medical history of amyotrophic lateral sclerosis (ALS) diagnosed three years ago, depression, left shoulder dislocation, urinary retention with suprapubic catheter placement who presented with shortness of breath and increased sputum production and also diarrhea which started yesterday. The patient's was present during the interview. As the patient has slurred speech due to amyotrophic lateral sclerosis and could not move herself, the patient's stated that the patient had a suprapubic catheter placement on last Wednesday, roughly four days ago. The patient was under general anesthesia and a few days later, the patient started having severe increase of shortness of breath and had increased cough and sputum production. Per the patient, the sputum was white and clear. Otherwise, the patient denies any fever or chills and starting today the patient starting having diarrhea. Per the patient's , the diarrhea does not appear to be bloody and was mostly yellow and clear. Otherwise, the patient denies any abdominal pains. Denies any nausea or vomiting. Denies any blood in the urine. Denies any rash or ulcerations. Denies any sick contacts or any recent traveling. ALLERGIES: No known drug allergies. HOME MEDICATIONS: Include: - acetaminophen 1000 mg by mouth as needed - albuterol two puff inhalation every four hours as needed - cephalexin 500 mg one tablet by mouth three times a day - citalopram 20 mg by mouth at bedtime - Flexeril 5 mg by mouth at bedtime as needed - Mucinex 600 mg one tablet by mouth twice a day - Bacid one tablet by mouth daily - magnesium 500 mg one tablet by mouth every evening - Nystatin one topically daily as needed - Nystatin topically twice a day as needed under the breasts - Percocet one tablet by mouth every 12 hours as needed - MiraLAX 17 grams by mouth daily as needed - riluzole 50 mg one tablet by mouth daily - Senna 8.6 mg one tablet by mouth twice a day - warfarin 1 mg by mouth every evening - tirasemtiv 125 mg one tablet PAST MEDICAL HISTORY: Includes: 1. Amyotrophic lateral sclerosis (ALS). 2. Urinary retention status post suprapubic catheter placement. 3. Deep vein thrombosis (DVT) of the right lower extremity after a broken ankle. 4. Chronic obstructive pulmonary disease (COPD). 5. Hypomagnesemia. 6. Valerie in the skinfold. 7. Constipation. PAST SURGICAL HISTORY: Includes: 1. Right ankle repair. 2. Suprapubic catheter placement. SOCIAL HISTORY: The patient lives with her , is bed bound and requires care 18/01. She does not smoke. She admits to drinking wine one glass per week. Denies any recreational drug use. FAMILY HISTORY: Heart disease and another rare blood disorder runs in the family. However, per the patient, she does not have it. REVIEW OF SYSTEMS: GENERAL: The patient denies any recent traveling. However, she admits to recent surgery and was under general anesthesia. Denies any fever or chills. HEENT: Denies any changes with vision, smell, hearing or taste. However, she admits to increased sputum production and cough. CARDIOVASCULAR: Admits to intermittent epigastric pain. However, it is not associated with any trouble breathing. Denies any palpitations or racing heartbeat. PULMONARY: Admits to shortness of breath which is getting worse since the surgery, especially worse yesterday. Denies any blood in the sputum, however, admits to clear sputum. GENITOURINARY: Denies any problem with urination with her new suprapubic catheter. Denies any blood in the catheter. MUSCULOSKELETAL: The patient has amyotrophic lateral sclerosis (ALS) and cannot move her extremities. ENDOCRINE: Denies any polydipsia or polyuria, any cold or heat intolerance. HEMATOLOGY/ONCOLOGY: Denies any easy bruising or any bleeding anywhere. PSYCHIATRIC: Denies any anxiety or depression currently. NEUROLOGIC: The patient does have ALS and has been not able to move her extremities and also she has slurred speech. PHYSICAL EXAMINATION: VITAL SIGNS: Temperature 96, pulse 95, respiratory rate 20, blood pressure 150/116, oxygen saturation at 92%. GENERAL: The patient is a pleasant, elderly female who was alert, awake, oriented times three. She does not appear to be in distress, laying comfortably in bed with head elevated at a 45-degree angle. The patient does have slurred speech, however, and could not move her extremities. The patient appears to be paraplegic. HEENT: Normocephalic, atraumatic. Extraocular motor intact. Mucosa moist. Neck is supple. No neck lymphadenopathy. CARDIOVASCULAR: Regular rate and rhythm, normal S1, S2. There were, however, fixed split heart beats noted. LUNGS: Clear to auscultation bilaterally. No wheezes, rales, or rhonchi. ABDOMEN: Positive bowel sounds. Soft, nontender, nondistended. No peritoneal signs. No ecchymosis. EXTREMITIES: No clubbing, cyanosis, or edema. SKIN: Warm and dry. NEUROLOGIC: Cranial nerves II-XII intact. LABORATORY DATA: WBC 6.1, hemoglobin 12.9, hematocrit 39.4 with a platelet count of 285, MCV of 90.2. Sodium 141, potassium 4.1, chloride 106, bicarbonate 28, anion gap was 7, BUN 8, creatinine 0.34, GFR greater than 60, fasting glucose 108, lactic acid 1.1, calcium 8.9, CK 69, CK-MB 2.3, troponin less than 0.02, BNP was only 29. ABG was done and shows a pH of 7.4, pCO2 39, oxygen saturation was 95% with base excess of 1.5. INR was 1.37, PT 17.2. The patient had a GI panel with enteropathogenic E. coli. The patient's influenza screen was negative. Blood culture times one is pending. The patient had a CT angiogram of the chest which shows no evidence for PE, bibasilar consolidation compatible with pneumonia. The patient also had a portable chest x-ray which shows right lower lobe atelectasis or scarring. ASSESSMENT AND PLAN: A 62-year-old female with a past medical history of amyotrophic lateral sclerosis (ALS), deep vein thrombosis (DVT), urinary retention status post suprapubic urinary catheter placement, chronic obstructive pulmonary disease (COPD), hypomagnesemia who presented with: 1. Increased shortness of breath. CT angiogram of the chest shows bilateral consolidation which likely represents pneumonia. The patient has a CRIB score of at least 4 due to the patient had recent antibiotic usage as well as requires long-term care and had a recent hospitalization and chronic lung disease and also poor functional status and also gastric acid suppression. Therefore, the patient has been started on vancomycin, Zosyn and also azithromycin. Sputum culture has been ordered. We will downgrade antibiotics according to the patient's culture. 2. Recent diarrhea. The patient's gastrointestinal (GI) panel came back showing enteropathogenic Escherichia (E) coli. At this point, we will continue supportive therapy with 500 mL of normal saline bolus as well as normal saline at a rate of 80 mL per hour. Continue to monitor the patient. 3. Possible aspiration pneumonia. Continue antibiotics stated above. Continue the patient on aspiration precautions. Speech evaluation in the morning. Keep the patient nothing by mouth for now. 4. Urinary retention, status post suprapubic catheter placement. Continue to monitor. Currently stable. 5. Chronic obstructive pulmonary disease. Continue DuoNebs. 6. History of DVT. However, the patient has a subtherapeutic international normalized ratio (INR). INR was only 1.37. Continue subcutaneous heparin at this point. We will resume the patient's oral Coumadin at a higher dose once the patient is able to tolerate oral. 7. DVT prophylaxis, on subcutaneous heparin. We will convert the patient back to oral warfarin once the patient is able to tolerate oral. 8. Fluids, electrolytes and nutrition. The patient is currently on normal saline at a rate of 80 mL per hour. We will keep a potassium goal of 4 and the patient is currently nothing by mouth due to possible aspiration, pending speech evaluation in the morning. DISPOSITION: The patient does have bilateral consolidation on CT suspicious for aspiration pneumonia and the patient does have a CRIB score of at least 4. In addition, the patient's gastrointestinal (GI) panel showed enteropathogenic Escherichia (E) coli. We will continue supportive therapy. The patient is expected to be in the hospital at least several days. In addition, the patient does want a full code and the patient wants everything to be done for her including cardiopulmonary resuscitation (CPR) and intubation if needed. The patient has been discussed with attending doctor, Dr. Sanches. My preceptor for this patient encounter was Dr. Antelmo Sanches. The preceptor was physically present in the building during the encounter and was fully available as needed. All aspects of the patient interview, examination, medical decision making process, and medical care plan development were reviewed and approved by the preceptor. The preceptor is aware and concurs with the plan as stated in the body of this note and will attest to such by his/her co-signature.
[2017-05-09] MEDS: IPRATROPIUM 0.5MG/ALBUTEROL 2.5MG INH SOL UD 3ML (DUONEB)(J7620) NEB SCH (20:42)
[2017-05-09 21:10] VITALS: BP 137/85
[2017-05-09] MEDS: HEPARIN SOD (PORCINE) 5000 UNITS/ML VIAL SQ SCH (21:24)
[2017-05-09] MEDS: AZITHROMYCIN INJ 500 MG, VIAL MATE ADAPTER 1 EACH in D5W 250 ML IV SCH (21:24)
[2017-05-09] MEDS: PANTOPRAZOLE 40MG INJ (PROTONIX) (C9113) IV SCH (21:24)
--- NOTE | 2017-05-09 21:27 | PHACANCOPD ---
PHARMACY VANCOMYCIN DOSING Pt Demographics Demographics Patient Age:62 , Weight:75.000 , Gender: female Adjusted Body Weight Date: 05/09/17, Adjusted Body Weight: Kg Events Past 24 Hours Events Past 24 Hours: NO: Dialysis, Diuretic Therapy, Change in CrCl, Fever, Elevation in WBC, Pending Diagnostics, Pending Procedures, Other Vancomycin Vancomycin Target Ranges: 15-20 mcg/ml Vancomycin Load Y/N: No Load Dose Date Time Vancomycin Load Dose: Date: Time: Vancomycin Dose Date: 05/09/17. Current Vancomycin Dose: [750MG Q12H] Intermittent Dosing?: No Labs Labs Item Value Date Time White Blood Count 6.1 10^3/uL 05/09/17 1514 Creatinine 0.34 MG/DL L 05/09/17 1514 Blood Urea Nitrogen 8 MG/DL 05/09/17 1514 Vital Signs Label Value Date Time Patient Temperature 96.0 degrees F 05/09/17 1443 Temperature Source Oral 05/09/17 1443 Micro Microbiology 05/09/17 Blood Culture, Received Pending 05/09/17 Gastrointestinal Tract Panel (PCR) - Final, Complete Enteropathogenic E.coli 05/09/17 Influenza Virus Type A Antigen - Final, Complete 05/09/17 Influenza Virus Type B Antigen - Final, Complete Creatinine Clearance Date:05/09/17. Creatinine Clearance: [pt has als scr not accurate]. Pending Labs Trough 05-10 @2100 Assessment and Plan Maintaining Current Dose?: Yes Reason for dose change: No Dose Change Pharmacist Note Pharmacist Note Date: 05/09/17. Pharmacist note: Dosed at 750mg q12h with a trough ordered for 11 @2100. Will continue tro monitor and make adjustments as needed. CNAELO DUBOIS PHARMACY May 09, 2017 21:27
[2017-05-09] MEDS: MORPHINE 2 MG/ML 1ML SYRINGE IV PRN (23:14)
[2017-05-09 23:21] VITALS: BP 117/69
[2017-05-10] MEDS: VANCOMYCIN HCL 750 MG, VIAL MATE ADAPTER 1 EACH in D5W 250 ML IV SCH ×2 (00:27→10:19)
[2017-05-10] MEDS: PIPERACILLIN/TAZOBACTAM SOD 3.375 GM in D5W 50 ML IV SCH ×5 (00:48→23:59)
[2017-05-10] MEDS: IPRATROPIUM 0.5MG/ALBUTEROL 2.5MG INH SOL UD 3ML (DUONEB)(J7620) NEB SCH ×4 (01:22→20:11)
[2017-05-10 04:59] VITALS: BP 108/62
[2017-05-10] MEDS: HEPARIN SOD (PORCINE) 5000 UNITS/ML VIAL SQ SCH (05:17)
[2017-05-10 05:27] LABS: BASO % 0.8 % (0.0-1.0); EOS # 0.1 10^3/uL (0.0-0.50); EOS % 2.3 % (0.0-3.0); IMMATURE GRANULOCYTE % 0.2 % (0-0); LYMPH # 1.4 10^3/uL (1.5-4.5); LYMPH % 28.7 % (24.0-44.0); MEAN CORPUSCULAR HEMOGLOBIN 29.4 pg (27.0-33.0); MEAN CORPUSCULAR HGB CONC 32.6 g/dl (32.0-36.5); MEAN CORPUSCULAR VOLUME 90.1 fl (80.0-96.0); MONO # 0.6 10^3/uL (0.0-0.8); MONO % 11.6 % (0.0-5.0); NEUTROPHILS # 2.7 10^3/uL (1.8-7.7); NEUTROPHILS % 56.4 % (36.0-66.0); PLATELET COUNT, AUTOMATED 256 10^3/uL (150-450); RED CELL DISTRIBUTION WIDTH 12.5 % (11.5-14.5); WHITE BLOOD COUNT 4.8 10^3/uL (4.0-10.0)
[2017-05-10 05:43] LABS: ANION GAP 8 MEQ/L (8-16); BLOOD UREA NITROGEN 6 MG/DL (7-18); CALCIUM LEVEL 8.4 MG/DL (8.8-10.2); CARBON DIOXIDE LEVEL 26 MEQ/L (21-32); CHLORIDE LEVEL 107 MEQ/L (98-107); CREATININE FOR GFR 0.26 MG/DL (0.55-1.02); GLOMERULAR FILTRATION RATE > 60.0 (>45); GLUCOSE, FASTING 86 MG/DL (80-110); POTASSIUM SERUM 3.4 MEQ/L (3.5-5.1); SODIUM LEVEL 141 MEQ/L (136-145)
--- NOTE | 2017-05-10 05:49 | ECGEPIP ---
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
[2017-05-10 08:00] VITALS: BP 104/61
[2017-05-10 08:09] LABS: MAGNESIUM LEVEL 2.1 MG/DL (1.8-2.4)
[2017-05-10] MEDS: KCL 40MEQ in NS 1000ML 1,000 ML IV SCH (08:38)
[2017-05-10] MEDS: ENOXAPARIN 80 MG/0.8 ML SYRINGE (J1650) SC SCH ×2 (08:39→20:42)
[2017-05-10 08:59] LABS: ALBUMIN 2.7 GM/DL (3.2-5.2)
[2017-05-10 12:00] VITALS: BP 163/85
[2017-05-10] MEDS: RILUZOLE 50 MG PO SCH (12:48)
[2017-05-10] MEDS: SENOKOT S TAB PO SCH ×2 (12:48→20:42)
[2017-05-10 16:00] VITALS: BP 136/88
[2017-05-10] MEDS ORDERED: WARFARIN SOD 3 MG TAB PO ONE (17:00)
[2017-05-10] MEDS ORDERED: WARFARIN SOD 2 MG TAB PO SCH (19:00)
[2017-05-10 20:00] VITALS: BP 153/88
[2017-05-10] MEDS: CitaloPRAM (CeleXA) 20 MG TAB PO SCH (20:41)
[2017-05-10] MEDS: AZITHROMYCIN INJ 500 MG, VIAL MATE ADAPTER 1 EACH in D5W 250 ML IV SCH (20:42)
[2017-05-10] MEDS: [UNRECOGNIZED DRUG - OTHER] PO SCH (20:42)
[2017-05-10] MEDS: MORPHINE 2 MG/ML 1ML SYRINGE IV PRN (20:49)
[2017-05-10] MEDS: PANTOPRAZOLE 40MG INJ (PROTONIX) (C9113) IV SCH (20:49)
[2017-05-10] MEDS ORDERED: CYCLOBENZAPRINE 5MG TABLET PO ONE (21:00)
[2017-05-10] MEDS: VANCOMYCIN HCL 1,000 MG, VIAL MATE ADAPTER 1 EACH in D5W 250 ML IV SCH (22:13)
[2017-05-10 23:59] VITALS: BP 136/81
[2017-05-11] MEDS ORDERED: oxyBUTYnin 5 MG TAB PO ONE (01:30)
[2017-05-11] MEDS: KCL 40MEQ in NS 1000ML 1,000 ML IV SCH ×2 (01:33→15:54)
[2017-05-11] MEDS: IPRATROPIUM 0.5MG/ALBUTEROL 2.5MG INH SOL UD 3ML (DUONEB)(J7620) NEB SCH ×4 (02:02→20:17)
[2017-05-11] MEDS ORDERED: CYCLOBENZAPRINE 5MG TABLET PO ONE (03:15)
[2017-05-11 04:00] VITALS: BP 137/88
[2017-05-11] MEDS: PIPERACILLIN/TAZOBACTAM SOD 3.375 GM in D5W 50 ML IV SCH ×2 (05:16→12:03)
[2017-05-11 05:34] LABS: BASO % 0.5 % (0.0-1.0); EOS # 0.1 10^3/uL (0.0-0.50); IMMATURE GRANULOCYTE % 0.4 % (0-0); LYMPH # 1.6 10^3/uL (1.5-4.5); LYMPH % 29.2 % (24.0-44.0); MEAN CORPUSCULAR HEMOGLOBIN 29.7 pg (27.0-33.0); MEAN CORPUSCULAR HGB CONC 33.1 g/dl (32.0-36.5); MEAN CORPUSCULAR VOLUME 89.7 fl (80.0-96.0); MONO # 0.6 10^3/uL (0.0-0.8); MONO % 9.8 % (0.0-5.0); NEUTROPHILS # 3.3 10^3/uL (1.8-7.7); NEUTROPHILS % 58.1 % (36.0-66.0); PLATELET COUNT, AUTOMATED 263 10^3/uL (150-450); RED CELL DISTRIBUTION WIDTH 12.3 % (11.5-14.5); WHITE BLOOD COUNT 5.6 10^3/uL (4.0-10.0)
[2017-05-11 05:47] LABS: INR 1.61
[2017-05-11 05:57] LABS: ANION GAP 6 MEQ/L (8-16); BLOOD UREA NITROGEN 3 MG/DL (7-18); CALCIUM LEVEL 8.6 MG/DL (8.8-10.2); CARBON DIOXIDE LEVEL 25 MEQ/L (21-32); CHLORIDE LEVEL 110 MEQ/L (98-107); GLOMERULAR FILTRATION RATE > 60.0 (>45); GLUCOSE, FASTING 98 MG/DL (80-110); POTASSIUM SERUM 3.6 MEQ/L (3.5-5.1); SODIUM LEVEL 141 MEQ/L (136-145)
[2017-05-11 08:00] VITALS: BP 161/89
[2017-05-11] MEDS: ENOXAPARIN 80 MG/0.8 ML SYRINGE (J1650) SC SCH ×2 (09:18→20:34)
[2017-05-11] MEDS: RILUZOLE 50 MG PO SCH (09:18)
[2017-05-11] MEDS: SENOKOT S TAB PO SCH ×2 (09:19→20:35)
[2017-05-11] MEDS: VANCOMYCIN HCL 1,000 MG, VIAL MATE ADAPTER 1 EACH in D5W 250 ML IV SCH (09:19)
[2017-05-11] MEDS: [UNRECOGNIZED DRUG - OTHER] PO SCH ×2 (09:19→20:34)
[2017-05-11] MEDS: oxyBUTYnin 5 MG TAB PO PRN ×2 (10:52→21:50)
[2017-05-11 12:00] VITALS: BP 155/86
[2017-05-11] MEDS: CYCLOBENZAPRINE 5MG TABLET PO PRN ×2 (12:03→21:50)
[2017-05-11] MEDS: WARFARIN SOD 3 MG TAB PO SCH (15:55)
[2017-05-11 16:00] VITALS: BP_SYST 111; BP_SYST 129; BP_DIAS 59; BP_DIAS 77
--- NOTE | 2017-05-11 16:27 | IPNPDOC ---
Subjective Date Seen The patient was seen on 05/11/17. Subjective Chief Complaint/HPI The patient is a 62-year-old female admitted with a reason for visit of Pneumonia. Examined at bedside. States dry cough and difficulty breathing is greatly improving. Overnight, had bladder and lower leg muscle spasms overnight , which resolved with Oxybutynin & Flexeril. Had spasms again when examined in room. States she has difficulty swallowing diet, but is eating overall. Used her home cough assist device with Resp Therapy this morning. Constitutional: Denies: Chills, Fever ENT: Denies: Head Aches Pulmonary: Reports: Dyspnea (mild, improving), Cough (mild, improving), Denies: Pleuritic Chest Pain Cardiovascular: Denies: Chest Pain, Palpitations, Edema, Lt Headedness Gastrointestinal: Denies: Nausea, Vomiting, Abdominal Pain Genitourinary: Reports: Retention (suprapubic catheter changed 05/05), Denies: Hematuria Musculoskeletal: Reports: Leg Pain (b/l leg + bladder spasms) Objective Physical Examination General Exam: Positive: Alert, Cooperative, Mild Distress (uncomfortable, in pain from bladder spasm) Eye Exam: Positive: EOMI ENT Exam: Positive: Atraumatic, Pharynx Normal Neck Exam: Positive: Supple, Negative: JVD, Lymphadenopathy Chest Exam: Positive: Clear to auscultation, Normal air movement, Negative: Wheezing Heart Exam: Positive: Rate Normal, Normal S1, Normal S2 Telemetry: Positive: No significant arrhythmia, Sinus Female Exam: Negative: Tenderness (suprapubic catheter with sutures/ incisions intact) Extremity Exam: Positive: Normal pulses, Negative: Clubbing, Cyanosis, Edema, Tenderness Skin Exam: Positive: Nl turgor and temperature Psych Exam: Positive: Mental status NL, Mood NL, Oriented x 3, Negative: Memory Intact Assessment /Plan Assessment Aspiration Pneumonia B/l consolidation on CT from admission. Clinically improving, with improved lung sounds and vitals WNL. Afebrile CRP elevated, but trending down Discontinue Vanco, Zosyn, Azithromycin. Start Augmentin 825mg bid for 4 days, for a total of 7 antibiotic days MRSA screen & respiratory panel negative Diarrhea 4 bowl movements yesterday Enteropathogenic Escherichia coli positive on GI panel. Continue supportive care with IV fluids. Urinary retention Chronic, due to ALS. Continue suprapubic catheter. Clean, dry, intact site ALS causing bladder & LE spasms. Start Flexeril & Oxybutynin scheduled prn continue home meds COPD Continue duo nebs History of DVT Subtherapeutic INR. Given 5mg Coumadin yesterday. 3mg today. Monitor. Plan/VTE VTE Prophylaxis Ordered?: Yes (warfarin) VS, I&O, 24H, Fishbone Vital Signs/I&O Vital Signs Date Time Temp Pulse Resp B/P (MAP) Pulse Ox O2 Delivery O2 Flow Rate FiO2 05/11/17 08:00 98.0 86 18 161/89 (113) 93 Room Air Laboratory Data 24H LABS Laboratory Tests 2 05/10/17 20:52: Vancomycin Level Trough 9.4L 05/11/17 05:15: Immature Granulocyte % (Auto) 0.4H, White Blood Count 5.6, Red Blood Count 3.60L , Hemoglobin 10.7L, Hematocrit 32.3L, Mean Corpuscular Volume 89.7, Mean Corpuscular Hemoglobin 29.7, Mean Corpuscular Hemoglobin Concent 33.1, Red Cell Distribution Width 12.3, Platelet Count 263, Neutrophils (%) (Auto) 58.1, Lymphocytes (%) (Auto) 29.2, Monocytes (%) (Auto) 9.8H, Eosinophils (%) (Auto) 2.0, Basophils (%) (Auto) 0.5, Neutrophils # (Auto) 3.3, Lymphocytes # (Auto) 1.6, Monocytes # (Auto) 0.6, Eosinophils # (Auto) 0.1, Basophils # (Auto) 0.0, Immature Granulocyte # (Auto) 0.0, Nucleated Red Blood Cells % (auto) 0.0, Prothrombin Time 19.6H, Prothromb Time International Ratio 1.61, Anion Gap 6L, Glomerular Filtration Rate > 60.0, Blood Urea Nitrogen 3L, Creatinine 0.30L, Sodium Level 141, Potassium Level 3.6, Chloride Level 110H, Carbon Dioxide Level 25, Calcium Level 8.6L, Magnesium Level 2.0, C-Reactive Protein, Quantitative 2.51H CBC/BMP Laboratory Tests 05/11/17 05:15 Red Blood Count 3.60 L, Mean Corpuscular Volume 89.7, Mean Corpuscular Hemoglobin 29.7, Mean Corpuscular Hemoglobin Concent 33.1, Red Cell Distribution Width 12.3, Neutrophils (%) (Auto) 58.1, Lymphocytes (%) (Auto) 29.2, Monocytes (%) (Auto) 9.8 H, Eosinophils (%) (Auto) 2.0, Basophils (%) ( Auto) 0.5, Neutrophils # (Auto) 3.3, Lymphocytes # (Auto) 1.6, Monocytes # (Auto ) 0.6, Eosinophils # (Auto) 0.1, Basophils # (Auto) 0.0, Calcium Level 8.6 L Microbiology Microbiology 05/09/17 Blood Culture - Preliminary, Resulted No growth after 24 hours . All specim... 05/09/17 Gastrointestinal Tract Panel (PCR) - Final, Complete Enteropathogenic E.coli 05/10/17 Respiratory Virus Panel (PCR) ([facility]) - Final, Complete 05/10/17 MRSA Screen - Final, Complete 05/09/17 Influenza Virus Type A Antigen - Final, Complete 05/09/17 Influenza Virus Type B Antigen - Final, Complete GME ATTESTATION GME ATTESTATION My faculty preceptor for this patient encounter was physically present during the encounter and was fully available. All aspects of the patient interview, examination, medical decision making process, and medical care plan development were reviewed and approved by the faculty preceptor. The faculty preceptor is aware and concurs with the plan as stated in the body of this note and will attest to such by his/her cosignature. VARSHA FAULKNER DO May 11, 2017 10:04
--- NOTE | 2017-05-11 16:41 | IPNPDOC ---
Subjective Date Seen The patient was seen on 05/10/17. Subjective Chief Complaint/HPI The patient is a 62-year-old female admitted with a reason for visit of Pneumonia. Examined at bedside. States she still feel short of breath and has dry cough. No events overnight or acute complaints. Constitutional: Denies: Chills, Fever ENT: Denies: Head Aches, Dysphagia Pulmonary: Reports: Dyspnea, Cough (non-productive) Cardiovascular: Denies: Chest Pain, Palpitations, Edema, Lt Headedness Gastrointestinal: Denies: Nausea, Vomiting, Abdominal Pain Neurological: Denies: Weakness, Numbness Objective Physical Examination General Exam: Positive: Alert, Cooperative, No Acute Distress Eye Exam: Positive: EOMI ENT Exam: Positive: Atraumatic Neck Exam: Positive: Supple, Negative: Lymphadenopathy Heart Exam: Positive: Rate Normal, Normal S1, Normal S2 Abdomen Exam: Positive: Normal bowel sounds, Soft, Negative: Tenderness Extremity Exam: Negative: Cyanosis, Edema, Tenderness Skin Exam: Positive: Nl turgor and temperature Neuro Exam: Negative: Normal Speech (slow) Psych Exam: Positive: Mental status NL, Mood NL, Memory Intact, Oriented x 3 Assessment /Plan Assessment Aspiration Pneumonia B/l consolidation on CT from admission. On Vanco, Zosyn, Azithromycin. Sputum cultures pending MRSA screen & respiratory panel pending Participate in Respiratory therapy, and use home-assist device for secretion clearing Diarrhea Enteropathogenic Escherichia coli positive on GI panel. Continue supportive care with IV fluids. Chronic Urinary retention Continue suprapubic catheter. Last changed last 05/05/17. Good urine output and clear. Dysphagia from ALS. Speech & Swallow eval pending ALS continue home meds Attempt physical therapy. At baseline, is bedbound COPD controlled. Continue duoNeb History of DVT Subtherapeutic INR. Will discontinue Heparin and start oral Warfarin, total 5mg today and recheck tomorrow am. Start Lovenox 70mg as well. Plan/VTE VTE Prophylaxis Ordered?: Yes VS, I&O, 24H, Fishbone Vital Signs/I&O Vital Signs Date Time Temp Pulse Resp B/P (MAP) Pulse Ox O2 Delivery O2 Flow Rate FiO2 05/10/17 04:59 97.9 71 18 108/62 (77) 95 Room Air Laboratory Data 24H LABS Laboratory Tests 2 05/09/17 15:12: Blood Gas Bicarbonate Standard 25.7, Arterial Blood pH 7.430, Arterial Blood Partial Pressure CO2 39.8, Arterial Blood Partial Pressure O2 74.1L, Arterial Blood Total CO2 27.0, Arterial Blood HCO3 25.8, Arterial Blood Base Excess 1.5, Arterial Blood Oxygen Saturation 95.7 05/09/17 15:14: Immature Granulocyte % (Auto) 0.2H, White Blood Count 6.1, Red Blood Count 4.37 , Hemoglobin 12.9, Hematocrit 39.4, Mean Corpuscular Volume 90.2, Mean Corpuscular Hemoglobin 29.5, Mean Corpuscular Hemoglobin Concent 32.7, Red Cell Distribution Width 12.3, Platelet Count 285, Neutrophils (%) (Auto) 78.7H, Lymphocytes (%) (Auto) 10.0L, Monocytes (%) (Auto) 9.5H, Eosinophils (%) (Auto) 1.1, Basophils (%) (Auto) 0.5, Neutrophils # (Auto) 4.8, Lymphocytes # (Auto) 0.6L, Monocytes # (Auto) 0.6, Eosinophils # (Auto) 0.1, Basophils # (Auto) 0.0, Immature Granulocyte # (Auto) 0.0, Nucleated Red Blood Cells % (auto) 0.0, Prothrombin Time 17.2H, Prothromb Time International Ratio 1.37, Anion Gap 7L, Glomerular Filtration Rate > 60.0, Lactic Acid Level 1.1, Blood Urea Nitrogen 8 , Creatinine 0.34L, Sodium Level 141, Potassium Level 4.1, Chloride Level 106, Carbon Dioxide Level 28, Calcium Level 8.9, Total Creatine Kinase 69, Creatine Kinase MB 2.3, Creatine Kinase MB Relative Index 3.33, Troponin I < 0.02, NT-Pro -B-Type Natriuretic Peptide 29 05/10/17 05:03: Immature Granulocyte % (Auto) 0.2H, White Blood Count 4.8, Red Blood Count 3.74L , Hemoglobin 11.0L, Hematocrit 33.7L, Mean Corpuscular Volume 90.1, Mean Corpuscular Hemoglobin 29.4, Mean Corpuscular Hemoglobin Concent 32.6, Red Cell Distribution Width 12.5, Platelet Count 256, Neutrophils (%) (Auto) 56.4, Lymphocytes (%) (Auto) 28.7, Monocytes (%) (Auto) 11.6H, Eosinophils (%) (Auto) 2.3, Basophils (%) (Auto) 0.8, Neutrophils # (Auto) 2.7, Lymphocytes # (Auto) 1.4L, Monocytes # (Auto) 0.6, Eosinophils # (Auto) 0.1, Basophils # (Auto) 0.0, Immature Granulocyte # (Auto) 0.0, Nucleated Red Blood Cells % (auto) 0.0, Anion Gap 8, Glomerular Filtration Rate > 60.0, Blood Urea Nitrogen 6L, Creatinine 0.26L, Sodium Level 141, Potassium Level 3.4L, Chloride Level 107, Carbon Dioxide Level 26, Calcium Level 8.4L, Magnesium Level 2.1, C-Reactive Protein, Quantitative 3.46H CBC/BMP Laboratory Tests 05/09/17 15:14 Red Blood Count 4.37, Mean Corpuscular Volume 90.2, Mean Corpuscular Hemoglobin 29.5, Mean Corpuscular Hemoglobin Concent 32.7, Red Cell Distribution Width 12.3 , Neutrophils (%) (Auto) 78.7 H, Lymphocytes (%) (Auto) 10.0 L, Monocytes (%) ( Auto) 9.5 H, Eosinophils (%) (Auto) 1.1, Basophils (%) (Auto) 0.5, Neutrophils # (Auto) 4.8, Lymphocytes # (Auto) 0.6 L, Monocytes # (Auto) 0.6, Eosinophils # (Auto) 0.1, Basophils # (Auto) 0.0, Calcium Level 8.9, Total Creatine Kinase 69 05/10/17 05:03 Red Blood Count 3.74 L, Mean Corpuscular Volume 90.1, Mean Corpuscular Hemoglobin 29.4, Mean Corpuscular Hemoglobin Concent 32.6, Red Cell Distribution Width 12.5, Neutrophils (%) (Auto) 56.4, Lymphocytes (%) (Auto) 28.7, Monocytes (%) (Auto) 11.6 H, Eosinophils (%) (Auto) 2.3, Basophils (%) ( Auto) 0.8, Neutrophils # (Auto) 2.7, Lymphocytes # (Auto) 1.4 L, Monocytes # ( Auto) 0.6, Eosinophils # (Auto) 0.1, Basophils # (Auto) 0.0, Calcium Level 8.4 L Microbiology Microbiology 05/09/17 Blood Culture, Received Pending 05/09/17 Gastrointestinal Tract Panel (PCR) - Final, Complete Enteropathogenic E.coli 05/10/17 MRSA Screen, Received Pending 05/09/17 Influenza Virus Type A Antigen - Final, Complete 05/09/17 Influenza Virus Type B Antigen - Final, Complete GME ATTESTATION GME ATTESTATION My preceptor for this patient encounter was physically present in the building during the encounter and was fully available. As needed, all aspects of the patient interview, examination, medical decision making process, and medical care plan development were reviewed and approved by the preceptor. Preceptor is aware and concurs with the plan as stated in the body of this note and will attest to such by his/her cosignature. ATTENDING NOTE I have both independently examined this patient as well as reviewed the note. I have discussed in detail with the resident the findings and plan of treatment as documented in the residents note. I will continue to follow the patient and offer further guidance to the patients care as necessary during this hospital stay. [facility] May 10, 2017 08:54 LAVONNE THOMAS MD May 12, 2017 12:18
[2017-05-11 20:00] VITALS: BP 143/88
[2017-05-11] MEDS: AUGMENTIN 875 MG TAB PO SCH (20:34)
[2017-05-11] MEDS: CitaloPRAM (CeleXA) 20 MG TAB PO SCH (20:34)
[2017-05-11] MEDS: MORPHINE 2 MG/ML 1ML SYRINGE IV PRN (23:48)
[2017-05-11 23:59] VITALS: BP 132/96
[2017-05-12] MEDS: IPRATROPIUM 0.5MG/ALBUTEROL 2.5MG INH SOL UD 3ML (DUONEB)(J7620) NEB SCH ×4 (02:00→19:55)
[2017-05-12 04:00] VITALS: BP 138/82
[2017-05-12] MEDS: KCL 40MEQ in NS 1000ML 1,000 ML IV SCH (04:36)
[2017-05-12 06:20] LABS: BASO % 0.7 % (0.0-1.0); EOS # 0.2 10^3/uL (0.0-0.50); EOS % 3.7 % (0.0-3.0); IMMATURE GRANULOCYTE % 0.3 % (0-0); LYMPH # 1.7 10^3/uL (1.5-4.5); LYMPH % 28.8 % (24.0-44.0); MEAN CORPUSCULAR HEMOGLOBIN 29.7 pg (27.0-33.0); MONO # 0.6 10^3/uL (0.0-0.8); MONO % 9.3 % (0.0-5.0); NEUTROPHILS # 3.4 10^3/uL (1.8-7.7); NEUTROPHILS % 57.2 % (36.0-66.0); PLATELET COUNT, AUTOMATED 262 10^3/uL (150-450); RED CELL DISTRIBUTION WIDTH 12.3 % (11.5-14.5); WHITE BLOOD COUNT 5.9 10^3/uL (4.0-10.0)
[2017-05-12 06:30] LABS: INR 1.89
[2017-05-12 06:35] LABS: ANION GAP 7 MEQ/L (8-16); BLOOD UREA NITROGEN 3 MG/DL (7-18); CALCIUM LEVEL 8.5 MG/DL (8.8-10.2); CARBON DIOXIDE LEVEL 22 MEQ/L (21-32); CHLORIDE LEVEL 110 MEQ/L (98-107); CREATININE FOR GFR 0.27 MG/DL (0.55-1.02); GLOMERULAR FILTRATION RATE > 60.0 (>45); GLUCOSE, FASTING 77 MG/DL (80-110); MAGNESIUM LEVEL 1.9 MG/DL (1.8-2.4); SODIUM LEVEL 139 MEQ/L (136-145)
[2017-05-12 08:19] VITALS: BP 142/80
[2017-05-12] MEDS: AUGMENTIN 875 MG TAB PO SCH ×2 (08:59→20:42)
[2017-05-12] MEDS: oxyBUTYnin 5 MG TAB PO PRN (08:59)
[2017-05-12] MEDS: SENOKOT S TAB PO SCH ×2 (09:00→20:42)
[2017-05-12] MEDS: ENOXAPARIN 80 MG/0.8 ML SYRINGE (J1650) SC SCH ×2 (09:01→20:42)
[2017-05-12] MEDS: [UNRECOGNIZED DRUG - OTHER] PO SCH ×2 (09:02→20:44)
[2017-05-12] MEDS: RILUZOLE 50 MG PO SCH (09:02)
[2017-05-12] MEDS: CYCLOBENZAPRINE 5MG TABLET PO PRN ×2 (09:25→22:31)
[2017-05-12 11:44] VITALS: BP 145/90
[2017-05-12] MEDS: NYSTATIN 100,000 UNITS/GM TOPICAL PWD 15 GM TOP SCH ×2 (15:55→20:42)
[2017-05-12] MEDS: WARFARIN SOD 3 MG TAB PO SCH (15:55)
--- NOTE | 2017-05-12 15:58 | IPNPDOC ---
Subjective Date Seen The patient was seen on 05/12/17. Subjective Chief Complaint/HPI The patient is a 62-year-old female admitted with a reason for visit of Pneumonia. Examined in bed. Dry cough has resolved. No acute complaints. Constitutional: Denies: Chills, Fever Eyes: Denies: Pain, Vision change ENT: Reports: Dysphagia (to solids, chronic from ALS), Denies: Head Aches Pulmonary: Denies: Dyspnea, Cough (resolved) Cardiovascular: Denies: Chest Pain, Palpitations, Edema, Lt Headedness Gastrointestinal: Denies: Nausea, Vomiting, Abdominal Pain Genitourinary: Denies: Retention (chronic from ALS) Musculoskeletal: Reports: Leg Pain (b/l leg & bladder spasms) Neurological: Reports: Weakness (chronic, in all extremities, 2/2 ALS) Objective Physical Examination General Exam: Positive: Alert, Cooperative, No Acute Distress Eye Exam: Positive: EOMI ENT Exam: Positive: Atraumatic Neck Exam: Positive: Supple Chest Exam: Positive: Clear to auscultation, Normal air movement, Negative: Wheezing Heart Exam: Positive: Rate Normal, Normal S1, Normal S2 Telemetry: Positive: No significant arrhythmia, Sinus Abdomen Exam: Positive: Soft, Negative: Tenderness Female Exam: Negative: Tenderness (suprapubic catheter with sutures/ incisions intact) Extremity Exam: Negative: Cyanosis, Edema, Tenderness Skin Exam: Positive: Nl turgor and temperature Neuro Exam: Negative: Normal Speech (slow) Psych Exam: Positive: Mental status NL, Mood NL, Memory Intact, Oriented x 3 Assessment /Plan Assessment Aspiration Pneumonia pt is feeling better. Dry cough has resolved. No fever, chills. Vitals WNL. No leukocytosis. CRP trending down IV Vanco, Zosyn, Azithromycin discontinued 05/01, and Augmentin started yesterday for 4 days, for a total of 7 antibiotic days sputum and blood cultures, and respiratory panel negative participate in Respiratory Therapy, and use home-assist device for secretion clearing History of DVT Subtherapeutic INR, but on the rise. Administered 5mg 05/10, 3mg yesterday, and will continue 3mg today continue Lovenox 70mg Diarrhea Enteropathogenic Escherichia coli positive on GI panel. Continue supportive care with IV fluids. Chronic Urinary retention Continue suprapubic catheter. Last changed last 05/05/17. Good urine output and clear. Dysphagia from ALS. Speech Therapy for speech & swallow assistance ALS continue home meds Attempt physical therapy. At baseline, is bedbound COPD controlled. Continue duoNeb Plan/VTE VTE Prophylaxis Ordered?: Yes VS, I&O, 24H, Fishbone Vital Signs/I&O Vital Signs Date Time Temp Pulse Resp B/P (MAP) Pulse Ox O2 Delivery O2 Flow Rate FiO2 05/12/17 11:44 97.2 62 20 145/90 (108) 95 Room Air I&O- Last 24 Hours up to 6 AM 05/13/17 05:59 Intake Total 240 ml Output Total 1500 ml Balance -1260 ml Laboratory Data 24H LABS Laboratory Tests 2 05/12/17 06:05: Immature Granulocyte % (Auto) 0.3H, White Blood Count 5.9, Red Blood Count 3.70L , Hemoglobin 11.0L, Hematocrit 33.3L, Mean Corpuscular Volume 90.0, Mean Corpuscular Hemoglobin 29.7, Mean Corpuscular Hemoglobin Concent 33.0, Red Cell Distribution Width 12.3, Platelet Count 262, Neutrophils (%) (Auto) 57.2, Lymphocytes (%) (Auto) 28.8, Monocytes (%) (Auto) 9.3H, Eosinophils (%) (Auto) 3.7H, Basophils (%) (Auto) 0.7, Neutrophils # (Auto) 3.4, Lymphocytes # (Auto) 1.7, Monocytes # (Auto) 0.6, Eosinophils # (Auto) 0.2, Basophils # (Auto) 0.0, Immature Granulocyte # (Auto) 0.0, Nucleated Red Blood Cells % (auto) 0.0, Prothrombin Time 22.3H, Prothromb Time International Ratio 1.89, Anion Gap 7L, Glomerular Filtration Rate > 60.0, Blood Urea Nitrogen 3L, Creatinine 0.27L, Sodium Level 139, Potassium Level 4.0, Chloride Level 110H, Carbon Dioxide Level 22, Calcium Level 8.5L, Magnesium Level 1.9, C-Reactive Protein, Quantitative 1.84H CBC/BMP Laboratory Tests 05/12/17 06:05 Red Blood Count 3.70 L, Mean Corpuscular Volume 90.0, Mean Corpuscular Hemoglobin 29.7, Mean Corpuscular Hemoglobin Concent 33.0, Red Cell Distribution Width 12.3, Neutrophils (%) (Auto) 57.2, Lymphocytes (%) (Auto) 28.8, Monocytes (%) (Auto) 9.3 H, Eosinophils (%) (Auto) 3.7 H, Basophils (%) ( Auto) 0.7, Neutrophils # (Auto) 3.4, Lymphocytes # (Auto) 1.7, Monocytes # (Auto ) 0.6, Eosinophils # (Auto) 0.2, Basophils # (Auto) 0.0, Calcium Level 8.5 L Microbiology Microbiology 05/09/17 Blood Culture - Preliminary, Resulted No Growth after 48 hours. All Specime... 05/09/17 Gastrointestinal Tract Panel (PCR) - Final, Complete Enteropathogenic E.coli 05/10/17 Respiratory Virus Panel (PCR) ([facility]) - Final, Complete 05/10/17 MRSA Screen - Final, Complete 05/09/17 Influenza Virus Type A Antigen - Final, Complete 05/09/17 Influenza Virus Type B Antigen - Final, Complete GME ATTESTATION GME ATTESTATION My preceptor for this patient encounter was physically present in the building during the encounter and was fully available. As needed, all aspects of the patient interview, examination, medical decision making process, and medical care plan development were reviewed and approved by the preceptor. Preceptor is aware and concurs with the plan as stated in the body of this note and will attest to such by his/her cosignature. VARSHA FAULKNER DO May 12, 2017 11:58
[2017-05-12 16:11] VITALS: BP 150/82
[2017-05-12 18:00] VITALS: BP 141/86
[2017-05-12] MEDS: CitaloPRAM (CeleXA) 20 MG TAB PO SCH (20:42)
[2017-05-12 22:00] VITALS: BP 148/92
[2017-05-12] MEDS: MORPHINE 2 MG/ML 1ML SYRINGE IV PRN (22:19)
[2017-05-13] MEDS: IPRATROPIUM 0.5MG/ALBUTEROL 2.5MG INH SOL UD 3ML (DUONEB)(J7620) NEB SCH ×2 (01:03→08:00)
[2017-05-13] MEDS: MORPHINE 2 MG/ML 1ML SYRINGE IV PRN (01:50)
[2017-05-13] MEDS ORDERED: MORPHINE 2 MG/ML 1ML SYRINGE IV ONE (03:15)
[2017-05-13] MEDS ORDERED: PERCOCET 5MG/325MG TAB PO ONE (03:30)
[2017-05-13 06:00] VITALS: BP 132/74
[2017-05-13 06:07] LABS: BASO % 0.3 % (0.0-1.0); EOS # 0.1 10^3/uL (0.0-0.50); EOS % 0.9 % (0.0-3.0); IMMATURE GRANULOCYTE % 0.5 % (0-0); LYMPH # 0.7 10^3/uL (1.5-4.5); LYMPH % 7.8 % (24.0-44.0); MEAN CORPUSCULAR HEMOGLOBIN 29.4 pg (27.0-33.0); MEAN CORPUSCULAR VOLUME 89.2 fl (80.0-96.0); MONO # 0.6 10^3/uL (0.0-0.8); MONO % 6.4 % (0.0-5.0); NEUTROPHILS # 7.4 10^3/uL (1.8-7.7); NEUTROPHILS % 84.1 % (36.0-66.0); PLATELET COUNT, AUTOMATED 284 10^3/uL (150-450); RED CELL DISTRIBUTION WIDTH 12.2 % (11.5-14.5); WHITE BLOOD COUNT 8.8 10^3/uL (4.0-10.0)
[2017-05-13 06:21] LABS: INR 2.25
[2017-05-13 06:35] LABS: ANION GAP 12 MEQ/L (8-16); BLOOD UREA NITROGEN 4 MG/DL (7-18); CALCIUM LEVEL 8.9 MG/DL (8.8-10.2); CARBON DIOXIDE LEVEL 20 MEQ/L (21-32); CHLORIDE LEVEL 107 MEQ/L (98-107); CREATININE FOR GFR 0.28 MG/DL (0.55-1.02); GLOMERULAR FILTRATION RATE > 60.0 (>45); GLUCOSE, FASTING 106 MG/DL (80-110); MAGNESIUM LEVEL 1.8 MG/DL (1.8-2.4); POTASSIUM SERUM 3.6 MEQ/L (3.5-5.1); SODIUM LEVEL 139 MEQ/L (136-145)
[2017-05-13] MEDS: CYCLOBENZAPRINE 5MG TABLET PO PRN (07:11)
[2017-05-13 09:35] VITALS: BP 120/81
[2017-05-13] MEDS: AUGMENTIN 875 MG TAB PO SCH (10:44)
[2017-05-13] MEDS: [UNRECOGNIZED DRUG - OTHER] PO SCH (10:44)
[2017-05-13] MEDS: SENOKOT S TAB PO SCH (10:45)
[2017-05-13] MEDS: RILUZOLE 50 MG PO SCH (10:45)
[2017-05-13] MEDS: NYSTATIN 100,000 UNITS/GM TOPICAL PWD 15 GM TOP SCH (10:47)
[2017-05-13] MEDS ORDERED: PERCOCET 5MG/325MG TAB PO PRN (11:15)
[2017-05-13] MEDS ORDERED: AMOX875T2 PO (13:06)
[2017-05-13] MEDS ORDERED: OXYB5TAB10 PO (13:06)
--- NOTE | 2017-05-13 23:38 | DS.PDOC ---
Discharge Summary General Date of Admission May 09, 2017 at 18:47 Date of Discharge 05/13/17 Attending Physician: IKE KRAMER MD Discharge Summary PROCEDURES PERFORMED DURING STAY: None ADMITTING DIAGNOSES: 1. Aspiration Pneumonia, post-op DISCHARGE DIAGNOSES: 1. Aspiration Pneumonia, post-op 2. Chronic urinary retention 3. COPD 4. Hx of DVTs 5. Amyotrophic Lateral Sclerosis COMPLICATIONS/CHIEF COMPLAINT: Pneumonia. HISTORY OF PRESENT ILLNESS: Ms. Billings presented for increased shortness of breath, clear white sputum production, and diarrhea for a few days. Pt has a hx of ALS associated with urinary retention, and had a suprapubic catheter placed about 4 days prior to admission. Pt was under general anesthesia, and symptoms started since then. Pt denied n/v/abdominal pain, blood in urine or stools, rashes, sick contacts, or recent travel. Admitting labs lacked leukocytosis, and pt was afebrile and vitals WNL. Imaging revealed bilateral consolidation, likely aspiration pneumonia, and CT angio of chest was negative for PE. Pt was also noted to have subtherapeutic INR on admission, 1.37 despite hx of DVTs. EKG on admission was normal in NSR. HOSPITAL COURSE: Blood cultures, flu screen, MRSA screen, and Resp Panel resulted negative. Pt was started on Vanc, Zosyn, & Azithromycin for aspiration pneumonia due to chronic lung disease and recent hospitalization and use of antibiotics. For diarrhea, GI Panel revealed Enteropathogenic E.Coli, which was treated with IV fluids & supportive care. Regarding subtherapeutic INR, pt was started on higher doses of Coumadin, ranging from 3mg-5mg/daily, home dose is 1mg. Pt had lower leg muscle & bladder spasms during stay, which responded well to Oxybutynin & and Flexeril. Pt eventually started feeling improved, and was cleared for discharge to home. Antibiotics were switched from IV to Augmentin PO with instructions to complete PO course at home. DISCHARGE MEDICATIONS: Please see below. ALLERGIES: Please see below. PHYSICAL EXAMINATION ON DISCHARGE: VITAL SIGNS: Please see below. GENERAL: A&Ox3, NAD HEENT: normocephalic, atraumatic, EOMI NECK: supple CARDIOVASCULAR EXAMINATION: RRR, normal S1,S2 RESPIRATORY EXAMINATION: CTAB, no wheezing ABDOMINAL EXAMINATION: soft, nontender, nondistended EXTREMITIES: no c/c/e. 2+ pulses b/l in all 4 extremities SKIN: pink, warm, dry NEUROLOGICAL EXAMINATION: unable to move all extremities due to ALS PSYCHIATRIC EXAMINATION: normal mood & affect LABORATORY DATA: Please see below. IMAGING: * 05/09/17 CXR: Right lower lobe atelectasis or scar. * 05/09/17 CT Angio Chest: No evidence for pulmonary embolism. Bibasilar consolidations are compataible with pneumonia. PROGNOSIS: fair ACTIVITY: As tolerated DIET: as tolerated DISCHARGE INSTRUCTIONS: 1. F/u with PCP Dr. Meneses, appt 05/25/17 at 2:30pm 2. F/u with urology in 2-4 weeks 3. Return to ER for emergency DISCHARGE CONDITION: Stable TIME SPENT ON DISCHARGE: Greater than 40 minutes. Vital Signs/I&Os Vital Signs Date Time Temp Pulse Resp B/P (MAP) Pulse Ox O2 Delivery O2 Flow Rate FiO2 05/12/17 07:46 Room Air 05/12/17 04:00 97.8 64 18 138/82 (100) 95 Laboratory Data Labs 24H Laboratory Tests 2 05/12/17 06:05: Immature Granulocyte % (Auto) 0.3H, White Blood Count 5.9, Red Blood Count 3.70L , Hemoglobin 11.0L, Hematocrit 33.3L, Mean Corpuscular Volume 90.0, Mean Corpuscular Hemoglobin 29.7, Mean Corpuscular Hemoglobin Concent 33.0, Red Cell Distribution Width 12.3, Platelet Count 262, Neutrophils (%) (Auto) 57.2, Lymphocytes (%) (Auto) 28.8, Monocytes (%) (Auto) 9.3H, Eosinophils (%) (Auto) 3.7H, Basophils (%) (Auto) 0.7, Neutrophils # (Auto) 3.4, Lymphocytes # (Auto) 1.7, Monocytes # (Auto) 0.6, Eosinophils # (Auto) 0.2, Basophils # (Auto) 0.0, Immature Granulocyte # (Auto) 0.0, Nucleated Red Blood Cells % (auto) 0.0, Prothrombin Time 22.3H, Prothromb Time International Ratio 1.89, Anion Gap 7L, Glomerular Filtration Rate > 60.0, Blood Urea Nitrogen 3L, Creatinine 0.27L, Sodium Level 139, Potassium Level 4.0, Chloride Level 110H, Carbon Dioxide Level 22, Calcium Level 8.5L, Magnesium Level 1.9, C-Reactive Protein, Quantitative 1.84H CBC/BMP Laboratory Tests 05/12/17 06:05 Red Blood Count 3.70 L, Mean Corpuscular Volume 90.0, Mean Corpuscular Hemoglobin 29.7, Mean Corpuscular Hemoglobin Concent 33.0, Red Cell Distribution Width 12.3, Neutrophils (%) (Auto) 57.2, Lymphocytes (%) (Auto) 28.8, Monocytes (%) (Auto) 9.3 H, Eosinophils (%) (Auto) 3.7 H, Basophils (%) ( Auto) 0.7, Neutrophils # (Auto) 3.4, Lymphocytes # (Auto) 1.7, Monocytes # (Auto ) 0.6, Eosinophils # (Auto) 0.2, Basophils # (Auto) 0.0, Calcium Level 8.5 L Microbiology Microbiology 05/09/17 Blood Culture - Preliminary, Resulted No Growth after 48 hours. All Specime... 05/09/17 Gastrointestinal Tract Panel (PCR) - Final, Complete Enteropathogenic E.coli 05/10/17 Respiratory Virus Panel (PCR) (ANGIE) - Final, Complete 05/10/17 MRSA Screen - Final, Complete 05/09/17 Influenza Virus Type A Antigen - Final, Complete 05/09/17 Influenza Virus Type B Antigen - Final, Complete Discharge Medications Scheduled (Lactobacillus) 1 Tab Tab, 1 TAB PO DAILY, (Reported) Amoxicillin/Clavulanate Potas (Amoxicillin/Clavulanate P 875-125 mg) 1 Tab Tab, 875 MG PO BID Citalopram Hydrobromide (Citalopram Hydrobromide) 20 Mg Tab, 20 MG PO QHS, ( Reported) Guaifenesin (Mucinex) 600 Mg Tab, 600 MG PO BID, (Reported) Magnesium Oxide (Magnesium) 500 Mg Tab, 500 MG PO QPM, (Reported) Riluzole (Riluzole) 50 Mg Tab, 50 MG PO DAILY, (Reported) Senna (Senna Lax) 8.6 Mg Tab, 1 TAB PO BID, (Reported) Warfarin Sod (Warfarin Sodium) 1 Mg Tab, 1 MG PO QPM, (Reported) [tirasemtiv] 125 TAB, 125 MG PO BID, (Reported) *EXPERIMENTAL DRUG* Scheduled PRN Acetaminophen (Acetaminophen) 500 Mg Tab, 1,000 MG PO Q6H PRN for PAIN, ( Reported) Albuterol Sulfate (Ventolin Hfa) 108 Mcg/Act Aer, 2 PUFFS INH Q4H PRN for SHORTNESS OF BREATH, (Reported) Cyclobenzaprine HCl (Cyclobenzaprine HCl) 5 Mg Tab, 5 MG PO QHS PRN for SPASMS, (Reported) MAY TAKE UP TO 10MG Nystatin (Nystatin Powder) 100,000 Unit/Gm Pow, 1 DOSE TOP DAILY PRN for RASH, ( Reported) APPLY UNDER BREASTS Nystatin (Nystatin) 100,000 Unit/Gm Cre, 1 DOSE TOP BID PRN for RASH, (Reported) APPLY UNDER BREASTS Oxybutynin Chloride (Oxybutynin Chloride) 5 Mg Tab, 5 MG PO TIDP PRN for BLADDER SPASM Oxycodone/Acetaminophen (Oxycodone/Acetaminophen 5-325 mg) 1 Tab Tab, 1 TAB PO Q12H PRN for PAIN, (Reported) Polyethylene Glycol (Miralax) 1 Pow Pow, 17 GM PO DAILY PRN for CONSTIPATION, ( Reported) Allergies Coded Allergies: No Known Allergies (Unverified , 05/05/17) GME ATTESTATION GME ATTESTATION My preceptor for this patient encounter was physically present in the building during the encounter and was fully available. As needed, all aspects of the patient interview, examination, medical decision making process, and medical care plan development were reviewed and approved by the preceptor. Preceptor is aware and concurs with the plan as stated in the body of this note and will attest to such by his/her cosignature. VARSHA FAULKNER DO May 12, 2017 08:24
== END 2017-05-13 14:13 | disposition home health service (06) | DRG 143 ==
LOC: EDBD 14:39 → M ED 14:39 → M ED INP 18:47 → M PCU 20:55 → M MSPAV 05-12 17:50
PROVIDERS: ADMIT Internal Medicine; ATTEND Hospitalist
DX: J95.4 Chemical pneumonitis due to anesthesia (principal); G12.21 Amyotrophic lateral sclerosis; A04.0 Enteropathogenic Escherichia coli infection; G82.20 Paraplegia, unspecified; F32.9 Major depressive disorder, single episode, unspecified; Z96.0 Presence of urogenital implants; Z79.01 Long term (current) use of anticoagulants; Z79.899 Other long term (current) drug therapy; Z86.718 Personal history of other venous thrombosis and embolism; J44.9 Chronic obstructive pulmonary disease, unspecified

== ENCOUNTER → 2017-05-18 | Outpatient (REF) | payer BC, MEDICARE ==
[~2017-05-18] MED LIST changes: +ACET50TAOT PO; +AMOX875T2 PO; +CEPH500C PO; +LACT1TAB4 PO; +MAGN500T2 PO; +MIRA33504 PO; +NYST10CR TOP; +NYST1POW9 TOP; +OXYB10TA PO; +OXYB5TAB10 PO; +OXYC1SOL5 PO; +OXYC1TAB23 PO; +POLY1POW4 PO; +SENN1TAB10 PO; +SENNSYP PO; +WARF4TAB51 PO
[2017-05-18 15:28] LABS: INR 5.29
== END ==
LOC: M LAB REF 14:35
PROVIDERS: ATTEND Internal Medicine
DX: I82.401 Acute embolism and thrombosis of unspecified deep veins of right lower extremity (principal)

== ENCOUNTER → 2017-05-19 | Outpatient (REF) | payer BC | LOC: M LAB REF 14:44 | PROVIDERS: ATTEND Internal Medicine | DX: R19.7 Diarrhea, unspecified (principal) ==

== ENCOUNTER 2017-09-16 01:44 | Inpatient (IN) | payer BC, MEDICARE ==
[2017-09-16 03:43] LABS: VENOUS BASE EXCESS 0.1 (-2.0-2.0); VENOUS O2 SATURATION 94.5 % (60.0-80.0); VENOUS PARTIAL PRESSURE CO2 41.8 mmHg (38.0-50.0); VENOUS PARTIAL PRESSURE O2 73.2 mmHg (30.0-50.0); VENOUS PH 7.395 UNITS (7.330-7.430); VENOUS STANDARD HCO3 24.5 MEQ/L; VENOUS TOTAL CO2 26.3 MEQ/L (24.0-28.0)
[2017-09-16 03:52] LABS: BASO % 0.4 % (0.0-1.0); EOS # 0.1 10^3/uL (0.0-0.50); EOS % 1.8 % (0.0-3.0); HEMATOCRIT 43.3 % (36.0-47.0); HEMOGLOBIN 14.5 g/dl (12.0-16.0); IMMATURE GRANULOCYTE % 0.3 % (0-3.0); LYMPH # 1.8 10^3/uL (1.5-4.5); MEAN CORPUSCULAR HEMOGLOBIN 28.9 pg (27.0-33.0); MEAN CORPUSCULAR HGB CONC 33.5 g/dl (32.0-36.5); MEAN CORPUSCULAR VOLUME 86.4 fl (80.0-96.0); MONO # 0.7 10^3/uL (0.0-0.8); MONO % 10.5 % (0.0-5.0); NEUTROPHILS # 4.4 10^3/uL (1.8-7.7); PLATELET COUNT, AUTOMATED 303 10^3/uL (150-450); RED BLOOD COUNT 5.01 10^6/uL (4.00-5.40); RED CELL DISTRIBUTION WIDTH 13.6 % (11.5-14.5); WHITE BLOOD COUNT 7.1 10^3/uL (4.0-10.0)
[2017-09-16] MEDS: methylPREDNISolone INJ 125 MG/2 ML VIAL (J2930) IV ×3 (04:00→18:26)
[2017-09-16 04:04] LABS: INR 2.38
[2017-09-16 04:05] LABS: PARTIAL THROMBOPLASTIN TIME 57.5 SECONDS (26.8-37.9)
[2017-09-16 04:16] LABS: ANION GAP 8 MEQ/L (8-16); BLOOD UREA NITROGEN 12 MG/DL (7-18); CALCIUM LEVEL 8.9 MG/DL (8.8-10.2); CARBON DIOXIDE LEVEL 26 MEQ/L (21-32); CHLORIDE LEVEL 107 MEQ/L (98-107); CPK CREATINE PHOSPHOKINASE 122 U/L (26-192); FREE T4 1.36 NG/DL (0.76-1.46); GLOMERULAR FILTRATION RATE > 60.0 (>45); GLUCOSE, FASTING 88 MG/DL (70-100); POTASSIUM SERUM 4.1 MEQ/L (3.5-5.1); SODIUM LEVEL 141 MEQ/L (136-145); TROPONIN I < 0.02 NG/ML (< 0.10)
[2017-09-16 04:17] LABS: MAGNESIUM LEVEL 2.3 MG/DL (1.8-2.4)
[2017-09-16 04:17] LABS: NT-PRO BNP 49 PG/ML (<125)
[2017-09-16 04:22] LABS: CK-MB VALUE MASS 2.1 NG/ML (<3.6); MB/CK RELATIVE INDEX 1.72 (< OR =4)
[2017-09-16] MEDS: IPRATROPIUM 0.5MG/ALBUTEROL 2.5MG INH SOL UD 3ML (DUONEB)(J7620) NEB ×5 (04:30→20:00)
[2017-09-16] MEDS ORDERED: ISOVUE-370 76% 100ML VIAL (Q9967) As Ordered (05:54)
[2017-09-16] MEDS: NS 1,000 ML IV ×2 (08:42→18:11)
[2017-09-16] MEDS ORDERED: IPRATROPIUM 0.5MG/ALBUTEROL 2.5MG INH SOL UD 3ML (DUONEB)(J7620) NEB (08:45)
[2017-09-16] MEDS ORDERED: ONDANSETRON 4 MG TAB (S0181) PO (08:45)
[2017-09-16] MEDS ORDERED: ONDANSETRON 4MG/2ML VIAL (J2405) IV (08:45)
[2017-09-16] MEDS ORDERED: DOCUSATE SODIUM 100 MG CAP PO (09:00)
[2017-09-16] MEDS ORDERED: guaiFENesin ER 600 MG TAB PO (09:00)
[2017-09-16] MEDS ORDERED: PILL CUTTER/CRUSHER XX (10:30)
[2017-09-16] MEDS: LevoFLOXacin IV 750 MG in APPROPRIATE DILUENT 1 EA IV (11:23)
[2017-09-16] MEDS ORDERED: NYSTATIN CREAM 15 GM TOP (17:00)
[2017-09-16] MEDS ORDERED: NYSTATIN 100,000 UNITS/GM TOPICAL PWD 15 GM TOP (17:00)
[2017-09-16] MEDS: WARFARIN SOD 1 MG TAB PO (17:30)
[2017-09-16] MEDS: CitaloPRAM (CeleXA) 20 MG TAB PO (20:22)
[2017-09-16] MEDS: SENNA 8.6 MG TAB (SENOKOT) PO (20:22)
[2017-09-16] MEDS: DOCUSATE SOD LIQ 100MG/10ML UDC PEG (20:22)
[2017-09-17] MEDS: IPRATROPIUM 0.5MG/ALBUTEROL 2.5MG INH SOL UD 3ML (DUONEB)(J7620) NEB ×4 (02:04→20:37)
[2017-09-17] MEDS: methylPREDNISolone INJ 125 MG/2 ML VIAL (J2930) IV ×2 (03:47→10:47)
[2017-09-17] MEDS: NS 1,000 ML IV (04:05)
[2017-09-17 04:48] LABS: HEMATOCRIT 37.8 % (36.0-47.0); IMMATURE GRANULOCYTE % 0.7 % (0-3.0); LYMPH # 0.8 10^3/uL (1.5-4.5); LYMPH % 17.1 % (24.0-44.0); MEAN CORPUSCULAR HEMOGLOBIN 29.1 pg (27.0-33.0); MEAN CORPUSCULAR HGB CONC 32.8 g/dl (32.0-36.5); MEAN CORPUSCULAR VOLUME 88.7 fl (80.0-96.0); MONO # 0.4 10^3/uL (0.0-0.8); MONO % 9.3 % (0.0-5.0); NEUTROPHILS # 3.2 10^3/uL (1.8-7.7); NEUTROPHILS % 72.9 % (36.0-66.0); PLATELET COUNT, AUTOMATED 267 10^3/uL (150-450); RED BLOOD COUNT 4.26 10^6/uL (4.00-5.40); RED CELL DISTRIBUTION WIDTH 13.3 % (11.5-14.5); WHITE BLOOD COUNT 4.4 10^3/uL (4.0-10.0)
[2017-09-17 04:58] LABS: HEMOGLOBIN 12.4 g/dl (12.0-16.0)
[2017-09-17 05:01] LABS: INR 3.86; PROTHROMBIN TIME 39.9 SECONDS (12.4-14.5)
[2017-09-17 05:12] LABS: ANION GAP 8 MEQ/L (8-16); BLOOD UREA NITROGEN 12 MG/DL (7-18); CALCIUM LEVEL 8.6 MG/DL (8.8-10.2); CARBON DIOXIDE LEVEL 25 MEQ/L (21-32); CHLORIDE LEVEL 110 MEQ/L (98-107); CREATININE FOR GFR 0.24 MG/DL (0.55-1.30); GLOMERULAR FILTRATION RATE > 60.0 (>45); GLUCOSE, FASTING 160 MG/DL (70-100); MAGNESIUM LEVEL 1.9 MG/DL (1.8-2.4); POTASSIUM SERUM 3.4 MEQ/L (3.5-5.1); SODIUM LEVEL 143 MEQ/L (136-145)
[2017-09-17] MEDS: DOCUSATE SOD LIQ 100MG/10ML UDC PEG ×2 (08:42→20:13)
[2017-09-17] MEDS: oxyBUTYnin *DITROPAN XL* 5 MG TABCR PO (08:42)
[2017-09-17] MEDS: RILUZOLE 50 MG PO (08:42)
[2017-09-17] MEDS: SENNA 8.6 MG TAB (SENOKOT) PO ×2 (08:43→20:13)
[2017-09-17] MEDS: KCL 40MEQ in NS 1000ML 1,000 ML IV ×2 (09:05→23:41)
[2017-09-17] MEDS: LevoFLOXacin IV 750 MG in APPROPRIATE DILUENT 1 EA IV (10:47)
[2017-09-17] MEDS ORDERED: SALIVA SUBSTITUTE(MOUTHKOTE) BTL MT (15:15)
[2017-09-17] MEDS ORDERED: WARFARIN SOD 2 MG TAB PO (17:00)
[2017-09-17] MEDS: methylPREDNISolone INJ 40 MG/1 ML VIAL (J2920) IV (18:25)
[2017-09-17] MEDS: CitaloPRAM (CeleXA) 20 MG TAB PO (20:13)
[2017-09-18] MEDS: IPRATROPIUM 0.5MG/ALBUTEROL 2.5MG INH SOL UD 3ML (DUONEB)(J7620) NEB ×7 (02:00→23:43)
[2017-09-18] MEDS: methylPREDNISolone INJ 40 MG/1 ML VIAL (J2920) IV ×3 (03:33→19:03)
[2017-09-18 05:59] LABS: BASO % 0.1 % (0.0-1.0); HEMATOCRIT 33.9 % (36.0-47.0); HEMOGLOBIN 10.8 g/dl (12.0-16.0); IMMATURE GRANULOCYTE % 0.3 % (0-3.0); LYMPH # 1.2 10^3/uL (1.5-4.5); LYMPH % 16.1 % (24.0-44.0); MEAN CORPUSCULAR HEMOGLOBIN 28.5 pg (27.0-33.0); MEAN CORPUSCULAR HGB CONC 31.9 g/dl (32.0-36.5); MEAN CORPUSCULAR VOLUME 89.4 fl (80.0-96.0); MONO # 0.5 10^3/uL (0.0-0.8); MONO % 6.2 % (0.0-5.0); NEUTROPHILS % 77.3 % (36.0-66.0); PLATELET COUNT, AUTOMATED 208 10^3/uL (150-450); RED BLOOD COUNT 3.79 10^6/uL (4.00-5.40); RED CELL DISTRIBUTION WIDTH 13.7 % (11.5-14.5); WHITE BLOOD COUNT 7.7 10^3/uL (4.0-10.0)
[2017-09-18 06:09] LABS: INR 4.32; PROTHROMBIN TIME 43.7 SECONDS (12.4-14.5)
[2017-09-18 06:19] LABS: ANION GAP 4 MEQ/L (8-16); BLOOD UREA NITROGEN 13 MG/DL (7-18); CALCIUM LEVEL 8.4 MG/DL (8.8-10.2); CARBON DIOXIDE LEVEL 25 MEQ/L (21-32); CHLORIDE LEVEL 114 MEQ/L (98-107); CREATININE FOR GFR 0.19 MG/DL (0.55-1.30); GLOMERULAR FILTRATION RATE > 60.0 (>45); GLUCOSE, FASTING 125 MG/DL (70-100); POTASSIUM SERUM 4.1 MEQ/L (3.5-5.1); SODIUM LEVEL 143 MEQ/L (136-145)
[2017-09-18] MEDS: SENNA 8.6 MG TAB (SENOKOT) PO (10:03)
[2017-09-18] MEDS: LevoFLOXacin IV 750 MG in APPROPRIATE DILUENT 1 EA IV (10:03)
[2017-09-18] MEDS: oxyBUTYnin *DITROPAN XL* 5 MG TABCR PO (10:03)
[2017-09-18] MEDS: RILUZOLE 50 MG PO (10:03)
[2017-09-18] MEDS: DOCUSATE SOD LIQ 100MG/10ML UDC PEG ×2 (10:03→19:49)
[2017-09-18] MEDS: CitaloPRAM (CeleXA) 20 MG TAB PO (19:49)
[2017-09-18] MEDS: SENNA SYRUP 15 ML UDC PO (19:49)
[2017-09-18] MEDS: BACLOFEN 10 MG TAB PO (19:49)
[2017-09-18] MEDS: ACETYLCYSTEINE 20% 4 ML VIAL (200MG/ML) INH (20:22)
[2017-09-19] MEDS: methylPREDNISolone INJ 40 MG/1 ML VIAL (J2920) IV ×3 (03:33→18:12)
[2017-09-19 05:56] LABS: BASO % 0.1 % (0.0-1.0); HEMATOCRIT 35.8 % (36.0-47.0); HEMOGLOBIN 11.6 g/dl (12.0-16.0); IMMATURE GRANULOCYTE % 0.4 % (0-3.0); LYMPH # 1.2 10^3/uL (1.5-4.5); LYMPH % 17.2 % (24.0-44.0); MEAN CORPUSCULAR HEMOGLOBIN 28.9 pg (27.0-33.0); MEAN CORPUSCULAR HGB CONC 32.4 g/dl (32.0-36.5); MEAN CORPUSCULAR VOLUME 89.3 fl (80.0-96.0); MONO # 0.4 10^3/uL (0.0-0.8); MONO % 5.7 % (0.0-5.0); NEUTROPHILS # 5.5 10^3/uL (1.8-7.7); NEUTROPHILS % 76.6 % (36.0-66.0); PLATELET COUNT, AUTOMATED 206 10^3/uL (150-450); RED BLOOD COUNT 4.01 10^6/uL (4.00-5.40); RED CELL DISTRIBUTION WIDTH 13.3 % (11.5-14.5); WHITE BLOOD COUNT 7.2 10^3/uL (4.0-10.0)
[2017-09-19 06:07] LABS: INR 3.17
[2017-09-19 06:12] LABS: ANION GAP 7 MEQ/L (8-16); BLOOD UREA NITROGEN 12 MG/DL (7-18); CALCIUM LEVEL 8.6 MG/DL (8.8-10.2); CARBON DIOXIDE LEVEL 26 MEQ/L (21-32); CHLORIDE LEVEL 108 MEQ/L (98-107); CREATININE FOR GFR 0.27 MG/DL (0.55-1.30); GLOMERULAR FILTRATION RATE > 60.0 (>45); GLUCOSE, FASTING 124 MG/DL (70-100); MAGNESIUM LEVEL 2.2 MG/DL (1.8-2.4); POTASSIUM SERUM 4.1 MEQ/L (3.5-5.1); SODIUM LEVEL 141 MEQ/L (136-145)
[2017-09-19] MEDS: ACETYLCYSTEINE 20% 4 ML VIAL (200MG/ML) INH ×2 (07:15→20:26)
[2017-09-19] MEDS: IPRATROPIUM 0.5MG/ALBUTEROL 2.5MG INH SOL UD 3ML (DUONEB)(J7620) NEB ×5 (07:15→23:46)
[2017-09-19] MEDS: oxyBUTYnin *DITROPAN XL* 5 MG TABCR PO ×2 (09:00→09:50)
[2017-09-19] MEDS: RILUZOLE 50 MG PO (09:49)
[2017-09-19] MEDS: DOCUSATE SOD LIQ 100MG/10ML UDC PEG ×2 (09:50→20:21)
[2017-09-19] MEDS: SENNA SYRUP 15 ML UDC PO ×2 (09:50→20:21)
[2017-09-19] MEDS: LevoFLOXacin 750 MG TABLET PO (09:52)
[2017-09-19] MEDS: CitaloPRAM (CeleXA) 20 MG TAB PO (20:21)
[2017-09-19] MEDS: ACETAMINOPHEN TAB 650MG DOSE (2X325MG) PO (23:56)
[2017-09-20] MEDS: methylPREDNISolone INJ 40 MG/1 ML VIAL (J2920) IV ×3 (03:04→11:00)
[2017-09-20] MEDS: IPRATROPIUM 0.5MG/ALBUTEROL 2.5MG INH SOL UD 3ML (DUONEB)(J7620) NEB ×3 (03:58→12:07)
[2017-09-20] MEDS: LevoFLOXacin 750 MG TABLET PO (05:35)
[2017-09-20 07:29] LABS: BASO % 0.1 % (0.0-1.0); HEMATOCRIT 37.5 % (36.0-47.0); HEMOGLOBIN 12.3 g/dl (12.0-16.0); IMMATURE GRANULOCYTE % 0.7 % (0-3.0); LYMPH # 1.1 10^3/uL (1.5-4.5); LYMPH % 15.6 % (24.0-44.0); MEAN CORPUSCULAR HEMOGLOBIN 28.7 pg (27.0-33.0); MEAN CORPUSCULAR HGB CONC 32.8 g/dl (32.0-36.5); MEAN CORPUSCULAR VOLUME 87.6 fl (80.0-96.0); MONO # 0.4 10^3/uL (0.0-0.8); NEUTROPHILS # 5.5 10^3/uL (1.8-7.7); NEUTROPHILS % 77.6 % (36.0-66.0); PLATELET COUNT, AUTOMATED 221 10^3/uL (150-450); RED BLOOD COUNT 4.28 10^6/uL (4.00-5.40); RED CELL DISTRIBUTION WIDTH 13.5 % (11.5-14.5); WHITE BLOOD COUNT 7.1 10^3/uL (4.0-10.0)
[2017-09-20 07:32] LABS: INR 1.94; PROTHROMBIN TIME 22.8 SECONDS (12.4-14.5)
[2017-09-20 07:37] LABS: ANION GAP 8 MEQ/L (8-16); BLOOD UREA NITROGEN 12 MG/DL (7-18); CALCIUM LEVEL 8.6 MG/DL (8.8-10.2); CARBON DIOXIDE LEVEL 24 MEQ/L (21-32); CHLORIDE LEVEL 106 MEQ/L (98-107); CREATININE FOR GFR 0.25 MG/DL (0.55-1.30); GLOMERULAR FILTRATION RATE > 60.0 (>45); GLUCOSE, FASTING 123 MG/DL (70-100); MAGNESIUM LEVEL 2.1 MG/DL (1.8-2.4); POTASSIUM SERUM 3.7 MEQ/L (3.5-5.1); SODIUM LEVEL 138 MEQ/L (136-145)
[2017-09-20] MEDS: ACETYLCYSTEINE 20% 4 ML VIAL (200MG/ML) INH (07:58)
[2017-09-20] MEDS: RILUZOLE 50 MG PO (10:26)
[2017-09-20] MEDS: SENNA SYRUP 15 ML UDC PO (10:27)
[2017-09-20] MEDS: DOCUSATE SOD LIQ 100MG/10ML UDC PEG (10:27)
[2017-09-20] MEDS: predniSONE 20 MG TAB PO (13:22)
== END 2017-09-20 16:15 | disposition home health service (06) | DRG 137 ==
LOC: M MS5PR 09-17 21:32 → M ED 01:44 → M ED INP 08:42 → M ICU 09:22
DX: J69.0 Pneumonitis due to inhalation of food and vomit (principal); G12.21 Amyotrophic lateral sclerosis; Z93.1 Gastrostomy status; J40 Bronchitis, not specified as acute or chronic; J44.9 Chronic obstructive pulmonary disease, unspecified; E87.6 Hypokalemia; Z96.0 Presence of urogenital implants; Z86.718 Personal history of other venous thrombosis and embolism; Z87.891 Personal history of nicotine dependence; Z79.01 Long term (current) use of anticoagulants; Z79.899 Other long term (current) drug therapy; M21.371 Foot drop, right foot; M21.372 Foot drop, left foot

== ENCOUNTER 2017-09-21 10:26 | Inpatient (IN) | payer BC, MEDICARE, OTHER, MEDICAID ==
[2017-09-21 11:18] LABS: ABG BASE EXCESS -1.5 (-2.0-2.0); ABG HCO3 21.9 MEQ/L (22.0-26.0); ABG O2 SATURATION 97.2 % (95.0-99.0); ABG PARTIAL PRESSURE CO2 33.8 mmHg (35.0-45.0); ABG PARTIAL PRESSURE O2 87.3 mmHg (75.0-100.0); ABG STANDARD HCO3 23.2 MEQ/L (22.0-26.0)
[2017-09-21 11:27] LABS: BASO % 0.2 % (0.0-1.0); EOS % 0.1 % (0.0-3.0); HEMATOCRIT 46.8 % (36.0-47.0); HEMOGLOBIN 15.5 g/dl (12.0-16.0); IMMATURE GRANULOCYTE % 0.8 % (0-3.0); LYMPH % 6.2 % (24.0-44.0); MEAN CORPUSCULAR HEMOGLOBIN 28.8 pg (27.0-33.0); MEAN CORPUSCULAR HGB CONC 33.1 g/dl (32.0-36.5); MEAN CORPUSCULAR VOLUME 86.8 fl (80.0-96.0); MONO % 6.1 % (0.0-5.0); NEUTROPHILS # 13.8 10^3/uL (1.8-7.7); NEUTROPHILS % 86.6 % (36.0-66.0); PLATELET COUNT, AUTOMATED 324 10^3/uL (150-450); RED BLOOD COUNT 5.39 10^6/uL (4.00-5.40); RED CELL DISTRIBUTION WIDTH 13.9 % (11.5-14.5); WHITE BLOOD COUNT 15.9 10^3/uL (4.0-10.0)
[2017-09-21 11:29] LABS: ADD MANUAL DIFFER NO; DIFF SLIDE NUMBER 210
[2017-09-21 11:56] LABS: ALBUMIN 3.4 GM/DL (3.2-5.2); ALBUMIN/GLOBULIN RATIO 0.67 (1.00-1.93); ALKALINE PHOSPHATASE 79 U/L (45-117); ALT/SGPT 67 U/L (12-78); ANION GAP 11 MEQ/L (8-16); AST/SGOT 29 U/L (7-37); BILIRUBIN,DIRECT 0.1 MG/DL (0.0-0.2); BILIRUBIN,TOTAL 0.4 MG/DL (0.2-1.0); BLOOD UREA NITROGEN 11 MG/DL (7-18); CALCIUM LEVEL 8.9 MG/DL (8.8-10.2); CARBON DIOXIDE LEVEL 22 MEQ/L (21-32); CHLORIDE LEVEL 108 MEQ/L (98-107); CREATININE FOR GFR 0.44 MG/DL (0.55-1.30); GLUCOSE, FASTING 151 MG/DL (70-100); NT-PRO BNP 552 PG/ML (<125); POTASSIUM SERUM 3.9 MEQ/L (3.5-5.1); SODIUM LEVEL 141 MEQ/L (136-145); TOTAL PROTEIN 8.5 GM/DL (6.4-8.2)
[2017-09-21 12:15] LABS: GLOMERULAR FILTRATION RATE > 60.0 (>45)
[2017-09-21] MEDS ORDERED: ACETAMINOPHEN TAB 650MG DOSE (2X325MG) PEG (13:00)
[2017-09-21] MEDS ORDERED: ONDANSETRON 4MG/2ML VIAL (J2405) IV (13:00)
[2017-09-21] MEDS: ALBUTEROL SULFATE 2.5 MG/0.5 ML INH NEB SOLN INH (13:12)
[2017-09-21] MEDS ORDERED: NYSTATIN 100,000 UNITS/GM TOPICAL PWD 15 GM TOP (13:45)
[2017-09-21] MEDS ORDERED: ALBUTEROL SULFATE 2.5 MG/0.5 ML INH NEB SOLN INH (13:45)
[2017-09-21 13:48] LABS: INR 1.35
[2017-09-21 13:49] LABS: PARTIAL THROMBOPLASTIN TIME 29.4 SECONDS (26.8-37.9)
[2017-09-21 14:00] LABS: INFLUENZA A AMPLIFICATION NEGATIVE (NEGATIVE); INFLUENZA B AMPLIFICATION NEGATIVE (NEGATIVE)
[2017-09-21] MEDS ORDERED: PIPERACILLIN/TAZOBACTAM SOD 3.375 GM in APPROPRIATE DILUENT 1 EA IV (14:00)
[2017-09-21] MEDS: NS 1,000 ML IV (15:38)
[2017-09-21] MEDS: methylPREDNISolone INJ 125 MG/2 ML VIAL (J2930) IV (15:39)
[2017-09-21] MEDS: PIPERACILLIN/TAZOBACTAM SOD 3.375 GM in APPROPRIATE DILUENT 1 EA IV ×2 (15:39→21:26)
[2017-09-21] MEDS: IPRATROPIUM 0.5MG/ALBUTEROL 2.5MG INH SOL UD 3ML (DUONEB)(J7620) NEB ×2 (16:00→21:05)
[2017-09-21] MEDS: WARFARIN SOD 2 MG TAB PO (17:18)
[2017-09-21] MEDS: SENNA 8.6 MG TAB (SENOKOT) PO (21:00)
[2017-09-21] MEDS: ACETYLCYSTEINE 20% 4 ML VIAL (200MG/ML) INH (21:05)
[2017-09-21] MEDS: CitaloPRAM (CeleXA) 20 MG TAB PO (22:12)
[2017-09-21] MEDS ORDERED: PILL CUTTER/CRUSHER XX (22:15)
[2017-09-22] MEDS: methylPREDNISolone INJ 125 MG/2 ML VIAL (J2930) IV ×2 (02:00→14:11)
[2017-09-22] MEDS: PIPERACILLIN/TAZOBACTAM SOD 3.375 GM in APPROPRIATE DILUENT 1 EA IV ×2 (04:22→09:57)
[2017-09-22 04:40] LABS: HEMATOCRIT 41.1 % (36.0-47.0); HEMOGLOBIN 13.6 g/dl (12.0-16.0); MEAN CORPUSCULAR HEMOGLOBIN 28.4 pg (27.0-33.0); MEAN CORPUSCULAR HGB CONC 33.1 g/dl (32.0-36.5); MEAN CORPUSCULAR VOLUME 85.8 fl (80.0-96.0); PLATELET COUNT, AUTOMATED 281 10^3/uL (150-450); RED BLOOD COUNT 4.79 10^6/uL (4.00-5.40); WHITE BLOOD COUNT 10.5 10^3/uL (4.0-10.0)
[2017-09-22 04:50] LABS: INR 1.41; PROTHROMBIN TIME 17.6 SECONDS (12.4-14.5)
[2017-09-22 04:51] LABS: PARTIAL THROMBOPLASTIN TIME 31.5 SECONDS (26.8-37.9)
[2017-09-22 04:53] LABS: ANION GAP 8 MEQ/L (8-16); BLOOD UREA NITROGEN 13 MG/DL (7-18); CALCIUM LEVEL 8.9 MG/DL (8.8-10.2); CARBON DIOXIDE LEVEL 26 MEQ/L (21-32); CHLORIDE LEVEL 108 MEQ/L (98-107); CREATININE FOR GFR 0.22 MG/DL (0.55-1.30); GLOMERULAR FILTRATION RATE > 60.0 (>45); GLUCOSE, FASTING 128 MG/DL (70-100); POTASSIUM SERUM 3.9 MEQ/L (3.5-5.1); SODIUM LEVEL 142 MEQ/L (136-145)
[2017-09-22] MEDS: IPRATROPIUM 0.5MG/ALBUTEROL 2.5MG INH SOL UD 3ML (DUONEB)(J7620) NEB ×2 (07:16→12:00)
[2017-09-22] MEDS: ACETYLCYSTEINE 20% 4 ML VIAL (200MG/ML) INH (07:18)
[2017-09-22] MEDS: RILUZOLE 50 MG PO (08:46)
[2017-09-22] MEDS: SENNA 8.6 MG TAB (SENOKOT) PO (09:00)
== END 2017-09-22 15:20 | disposition home health service (06) | DRG 42 ==
LOC: M ED 10:26 → M ED INP 13:09 → M ICU 15:05
DX: G12.21 Amyotrophic lateral sclerosis (principal); N31.9 Neuromuscular dysfunction of bladder, unspecified; J44.9 Chronic obstructive pulmonary disease, unspecified; Z93.1 Gastrostomy status; J98.11 Atelectasis; Z86.718 Personal history of other venous thrombosis and embolism; Z87.891 Personal history of nicotine dependence; Z79.01 Long term (current) use of anticoagulants; Z79.899 Other long term (current) drug therapy; R53.2 Functional quadriplegia

== ENCOUNTER 2017-11-04 20:31 | Observation (INO) | payer BC, MEDICARE, OTHER ==
[2017-11-04] MEDS: oxyBUTYnin 5 MG TAB PO (21:00)
[2017-11-04 21:16] LABS: BASO # 0.1 10^3/uL (0.0-0.2); BASO % 0.6 % (0.0-1.0); EOS # 0.2 10^3/uL (0.0-0.50); EOS % 1.6 % (0.0-3.0); HEMATOCRIT 41.9 % (36.0-47.0); HEMOGLOBIN 13.8 g/dl (12.0-15.5); IMMATURE GRANULOCYTE % 0.5 % (0-3.0); LYMPH # 0.9 10^3/uL (1.5-4.5); LYMPH % 8.9 % (24.0-44.0); MEAN CORPUSCULAR HEMOGLOBIN 29.3 pg (27.0-33.0); MEAN CORPUSCULAR HGB CONC 32.9 g/dl (32.0-36.5); MONO # 0.6 10^3/uL (0.0-0.8); MONO % 6.1 % (0.0-5.0); NEUTROPHILS # 8.6 10^3/uL (1.8-7.7); NEUTROPHILS % 82.3 % (36.0-66.0); PLATELET COUNT, AUTOMATED 272 10^3/uL (150-450); RED BLOOD COUNT 4.71 10^6/uL (4.00-5.40); WHITE BLOOD COUNT 10.5 10^3/uL (4.0-10.0)
[2017-11-04] MEDS: IPRATROPIUM 0.5MG/ALBUTEROL 2.5MG INH SOL UD 3ML (DUONEB)(J7620) NEB ×2 (21:20→22:22)
[2017-11-04 21:30] LABS: INR 1.73; PROTHROMBIN TIME 20.8 SECONDS (12.4-14.5)
[2017-11-04 21:31] LABS: PARTIAL THROMBOPLASTIN TIME 41.6 SECONDS (26.8-37.9)
[2017-11-04 21:44] LABS: ALBUMIN 3.5 GM/DL (3.2-5.2); ALKALINE PHOSPHATASE 78 U/L (45-117); ALT/SGPT 34 U/L (12-78); ANION GAP 7 MEQ/L (8-16); AST/SGOT 20 U/L (7-37); BILIRUBIN,DIRECT < 0.1 MG/DL (0.0-0.2); BILIRUBIN,TOTAL 0.3 MG/DL (0.2-1.0); BLOOD UREA NITROGEN 8 MG/DL (7-18); CALCIUM LEVEL 8.7 MG/DL (8.8-10.2); CARBON DIOXIDE LEVEL 26 MEQ/L (21-32); CHLORIDE LEVEL 108 MEQ/L (98-107); CPK CREATINE PHOSPHOKINASE 82 U/L (26-192); GLOMERULAR FILTRATION RATE > 60.0 (>45); GLUCOSE, FASTING 131 MG/DL (70-100); SODIUM LEVEL 141 MEQ/L (136-145); TOTAL PROTEIN 7.4 GM/DL (6.4-8.2); TROPONIN I < 0.02 NG/ML (< 0.10)
[2017-11-04 21:50] LABS: CK-MB VALUE MASS 2.8 NG/ML (<3.6); MB/CK RELATIVE INDEX 3.41 (< OR =4); NT-PRO BNP 35 PG/ML (<125)
[2017-11-04] MEDS ORDERED: ACETAMINOPHEN TAB 650MG DOSE (2X325MG) PO (23:45)
[2017-11-04] MEDS ORDERED: IPRATROPIUM 0.5MG/ALBUTEROL 2.5MG INH SOL UD 3ML (DUONEB)(J7620) NEB (23:45)
[2017-11-05] MEDS ORDERED: ISOVUE-370 76% 100ML VIAL (Q9967) As Ordered (00:17)
[2017-11-05] MEDS ORDERED: PILL CRUSHER/CUTTER 1 EACH XX (01:15)
[2017-11-05] MEDS ORDERED: BACLOFEN 10 MG TAB PEG (01:15)
[2017-11-05] MEDS: IPRATROPIUM 0.5MG/ALBUTEROL 2.5MG INH SOL UD 3ML (DUONEB)(J7620) NEB ×3 (02:24→12:42)
[2017-11-05] MEDS: CitaloPRAM (CeleXA) 20 MG TAB PEG (04:17)
[2017-11-05] MEDS: predniSONE 20 MG TAB PO ×2 (04:17→10:01)
[2017-11-05] MEDS: WARFARIN SOD 2.5 MG TAB PO (04:17)
[2017-11-05 06:55] LABS: BASO % 0.2 % (0.0-1.0); EOS % 0.2 % (0.0-3.0); HEMATOCRIT 41.7 % (36.0-47.0); HEMOGLOBIN 14.1 g/dl (12.0-15.5); IMMATURE GRANULOCYTE % 0.6 % (0-3.0); LYMPH # 0.5 10^3/uL (1.5-4.5); LYMPH % 9.2 % (24.0-44.0); MEAN CORPUSCULAR HEMOGLOBIN 29.7 pg (27.0-33.0); MEAN CORPUSCULAR HGB CONC 33.8 g/dl (32.0-36.5); MONO # 0.1 10^3/uL (0.0-0.8); MONO % 1.7 % (0.0-5.0); NEUTROPHILS # 4.7 10^3/uL (1.8-7.7); NEUTROPHILS % 88.1 % (36.0-66.0); PLATELET COUNT, AUTOMATED 284 10^3/uL (150-450); RED BLOOD COUNT 4.74 10^6/uL (4.00-5.40); RED CELL DISTRIBUTION WIDTH 14.1 % (11.5-14.5); WHITE BLOOD COUNT 5.3 10^3/uL (4.0-10.0)
[2017-11-05 07:11] LABS: INR 1.59; PROTHROMBIN TIME 19.4 SECONDS (12.4-14.5)
[2017-11-05 07:14] LABS: ALBUMIN 3.3 GM/DL (3.2-5.2); ALBUMIN/GLOBULIN RATIO 0.72 (1.00-1.93); ALKALINE PHOSPHATASE 84 U/L (45-117); ALT/SGPT 31 U/L (12-78); ANION GAP 8 MEQ/L (8-16); AST/SGOT 21 U/L (7-37); BILIRUBIN,TOTAL 0.3 MG/DL (0.2-1.0); BLOOD UREA NITROGEN 9 MG/DL (7-18); CALCIUM LEVEL 9.3 MG/DL (8.8-10.2); CARBON DIOXIDE LEVEL 25 MEQ/L (21-32); CHLORIDE LEVEL 107 MEQ/L (98-107); CREATININE FOR GFR 0.29 MG/DL (0.55-1.30); GLOMERULAR FILTRATION RATE > 60.0 (>45); GLUCOSE, FASTING 157 MG/DL (70-100); MAGNESIUM LEVEL 2.4 MG/DL (1.8-2.4); POTASSIUM SERUM 4.2 MEQ/L (3.5-5.1); SODIUM LEVEL 140 MEQ/L (136-145); TOTAL PROTEIN 7.9 GM/DL (6.4-8.2)
[2017-11-05] MEDS: ACETYLCYSTEINE 20% 4 ML VIAL (200MG/ML) INH ×2 (08:03→12:42)
[2017-11-05] MEDS: RILUZOLE 50 MG PO (10:02)
[2017-11-05] MEDS: DOCUSATE SODIUM 100 MG CAP PO (10:02)
[2017-11-05] MEDS: oxyBUTYnin 5 MG TAB PO (10:02)
== END 2017-11-05 13:26 | disposition home or self-care (01) ==
LOC: M ED INP 20:32 → M ED 20:31
DX: R06.03 Acute respiratory distress (principal); G12.21 Amyotrophic lateral sclerosis; D72.829 Elevated white blood cell count, unspecified; Z86.718 Personal history of other venous thrombosis and embolism; Z96.0 Presence of urogenital implants; Z93.1 Gastrostomy status; F32.9 Major depressive disorder, single episode, unspecified; J44.9 Chronic obstructive pulmonary disease, unspecified; T17.990A Other foreign object in respiratory tract, part unspecified in causing asphyxiation, initial encounter; X58.XXXA Exposure to other specified factors, initial encounter; Y92.098 Other place in other non-institutional residence as the place of occurrence of the external cause; K59.00 Constipation, unspecified; Z79.899 Other long term (current) drug therapy; Z79.01 Long term (current) use of anticoagulants; Z79.2 Long term (current) use of antibiotics; Z87.891 Personal history of nicotine dependence
CPT/HCPCS: Q9967

== ENCOUNTER 2017-12-21 10:19 | Emergency (ER) | payer BC, MEDICARE, OTHER ==
[2017-12-21 11:22] LABS: ABG BASE EXCESS -1.8 (-2.0-2.0); ABG HCO3 21.5 MEQ/L (22.0-26.0); ABG O2 SATURATION 95.7 % (95.0-99.0); ABG PARTIAL PRESSURE CO2 32.7 mmHg (35.0-45.0); ABG PARTIAL PRESSURE O2 77.7 mmHg (75.0-100.0); ABG STANDARD HCO3 22.9 MEQ/L (22.0-26.0); ABG TOTAL CO2 22.5 MEQ/L (23.0-31.0); ABG pH (ARTERIAL) 7.435 UNITS (7.350-7.450)
[2017-12-21] MEDS ORDERED: GASTROGRAFIN SOLUTION 30ML (Q9963) As Ordered (12:01)
== END 2017-12-21 13:15 | disposition home or self-care (01) ==
LOC: M ED 10:19
DX: T85.598A Other mechanical complication of other gastrointestinal prosthetic devices, implants and grafts, initial encounter (principal); I10 Essential (primary) hypertension; G12.21 Amyotrophic lateral sclerosis; F32.9 Major depressive disorder, single episode, unspecified; F41.9 Anxiety disorder, unspecified; Z86.718 Personal history of other venous thrombosis and embolism; Z79.01 Long term (current) use of anticoagulants; Z79.899 Other long term (current) drug therapy
CPT/HCPCS: Q9963

== ENCOUNTER → 2017-12-22 | Outpatient (REF) | payer BC, MEDICARE | LOC: M LAB REF 15:52 | DX: R82.90 Unspecified abnormal findings in urine (principal) | CPT/HCPCS: 87186 ==

== ENCOUNTER 2017-12-31 20:10 | Emergency (ER) | payer BC, MEDICARE ==
[2017-12-31] MEDS: GASTROGRAFIN SOLUTION 30ML (Q9963) PO ×2 (23:00)
== END 2018-01-01 00:01 | disposition home or self-care (01) ==
LOC: M ED 01-01 00:01
DX: T85.598A Other mechanical complication of other gastrointestinal prosthetic devices, implants and grafts, initial encounter (principal); Y92.9 Unspecified place or not applicable; Y93.9 Activity, unspecified; G12.21 Amyotrophic lateral sclerosis; Z79.01 Long term (current) use of anticoagulants; Z79.899 Other long term (current) drug therapy; Z88.1 Allergy status to other antibiotic agents
CPT/HCPCS: Q9963

== ENCOUNTER 2018-01-16 12:56 | Emergency (ER) | payer BC, MEDICARE ==
[2018-01-16] MEDS: IPRATROPIUM 0.5MG/ALBUTEROL 2.5MG INH SOL UD 3ML (DUONEB)(J7620) NEB ×3 (13:42→14:16)
[2018-01-16 14:06] LABS: ABG BASE EXCESS -2.9 (-2.0-2.0); ABG O2 SATURATION 98.5 % (95.0-99.0); ABG PARTIAL PRESSURE CO2 38.7 mmHg (35.0-45.0); ABG PARTIAL PRESSURE O2 116.6 mmHg (75.0-100.0); ABG STANDARD HCO3 22.1 MEQ/L (22.0-26.0); ABG TOTAL CO2 23.2 MEQ/L (23.0-31.0); ABG pH (ARTERIAL) 7.372 UNITS (7.350-7.450)
[2018-01-16] MEDS: NS 1,000 ML IV ×2 (14:11→15:14)
[2018-01-16] MEDS: ASPIRIN 81 MG CHEW TABLET PO (14:11)
[2018-01-16] MEDS: methylPREDNISolone INJ 125 MG/2 ML VIAL (J2930) IV (14:11)
[2018-01-16 14:14] LABS: BASO % 0.2 % (0.0-1.0); HEMATOCRIT 43.4 % (36.0-47.0); HEMOGLOBIN 13.9 g/dl (12.0-15.5); IMMATURE GRANULOCYTE % 0.4 % (0-3.0); LYMPH # 0.5 10^3/uL (1.5-4.5); LYMPH % 5.6 % (24.0-44.0); MEAN CORPUSCULAR HEMOGLOBIN 29.3 pg (27.0-33.0); MEAN CORPUSCULAR VOLUME 91.6 fl (80.0-96.0); MONO # 0.6 10^3/uL (0.0-0.8); MONO % 7.2 % (0.0-5.0); NEUTROPHILS % 86.6 % (36.0-66.0); PLATELET COUNT, AUTOMATED 277 10^3/uL (150-450); RED BLOOD COUNT 4.74 10^6/uL (4.00-5.40); RED CELL DISTRIBUTION WIDTH 13.3 % (11.5-14.5)
[2018-01-16 14:25] LABS: PROTHROMBIN TIME 18.3 SECONDS (12.1-14.4)
[2018-01-16 14:38] LABS: ALBUMIN 3.1 GM/DL (3.2-5.2); ALBUMIN/GLOBULIN RATIO 0.67 (1.00-1.93); ALKALINE PHOSPHATASE 69 U/L (45-117); ALT/SGPT 20 U/L (12-78); ANION GAP 10 MEQ/L (8-16); AST/SGOT 23 U/L (7-37); BILIRUBIN,DIRECT < 0.1 MG/DL (0.0-0.2); BILIRUBIN,TOTAL 0.3 MG/DL (0.2-1.0); BLOOD UREA NITROGEN 6 MG/DL (7-18); CALCIUM LEVEL 8.9 MG/DL (8.8-10.2); CARBON DIOXIDE LEVEL 26 MEQ/L (21-32); CHLORIDE LEVEL 105 MEQ/L (98-107); CK-MB VALUE MASS 13.7 NG/ML (<3.6); CPK CREATINE PHOSPHOKINASE 113 U/L (26-192); CREATININE FOR GFR 0.15 MG/DL (0.55-1.30); GLOMERULAR FILTRATION RATE > 60.0 (>45); GLUCOSE, FASTING 155 MG/DL (70-100); MB/CK RELATIVE INDEX 12.12 (< OR =4); POTASSIUM SERUM 3.4 MEQ/L (3.5-5.1); SODIUM LEVEL 141 MEQ/L (136-145); TOTAL PROTEIN 7.7 GM/DL (6.4-8.2)
[2018-01-16 14:41] LABS: TROPONIN I 2.06 NG/ML (< 0.10)
[2018-01-16] MEDS ORDERED: MORPHINE 2 MG/ML 1ML SYRINGE (J2270) IV (15:00)
[2018-01-16] MEDS: HEPARIN SOD (PORCINE) 5000 UNITS/ML VIAL IV (15:13)
[2018-01-16] MEDS: HEPARIN DRIP 25,000 UNITS in APPROPRIATE DILUENT 1 EA IV (15:14)
[2018-01-16] MEDS: ASPIRIN 600 MG SUPP PR (15:14)
== END 2018-01-16 15:43 | disposition short-term general hospital (02) ==
LOC: M ED 12:56
DX: I21.4 Non-ST elevation (NSTEMI) myocardial infarction (principal); J81.0 Acute pulmonary edema; G12.21 Amyotrophic lateral sclerosis; J45.909 Unspecified asthma, uncomplicated; Z88.2 Allergy status to sulfonamides; Z79.899 Other long term (current) drug therapy; Z79.01 Long term (current) use of anticoagulants; Z93.1 Gastrostomy status; Z99.3 Dependence on wheelchair; Z96.0 Presence of urogenital implants
CPT/HCPCS: J2930

== ENCOUNTER 2018-01-19 12:16 | Emergency (ER) | payer BC, MEDICARE ==
[2018-01-19 12:59] LABS: ABG O2 SATURATION 98.3 % (95.0-99.0)
[2018-01-19 13:01] LABS: ABG BASE EXCESS -1.2 (-2.0-2.0); ABG HCO3 22.5 MEQ/L (22.0-26.0); ABG PARTIAL PRESSURE CO2 34.9 mmHg (35.0-45.0); ABG PARTIAL PRESSURE O2 109.3 mmHg (75.0-100.0); ABG STANDARD HCO3 23.5 MEQ/L (22.0-26.0); ABG TOTAL CO2 23.6 MEQ/L (23.0-31.0); ABG pH (ARTERIAL) 7.428 UNITS (7.350-7.450)
[2018-01-19 13:07] LABS: BASO % 0.2 % (0.0-1.0); HEMATOCRIT 38.8 % (36.0-47.0); HEMOGLOBIN 12.8 g/dl (12.0-15.5); IMMATURE GRANULOCYTE % 0.6 % (0-3.0); LYMPH # 0.9 10^3/uL (1.5-4.5); LYMPH % 9.5 % (24.0-44.0); MEAN CORPUSCULAR HEMOGLOBIN 29.2 pg (27.0-33.0); MEAN CORPUSCULAR VOLUME 88.4 fl (80.0-96.0); MONO # 0.7 10^3/uL (0.0-0.8); MONO % 7.2 % (0.0-5.0); NEUTROPHILS # 7.7 10^3/uL (1.8-7.7); NEUTROPHILS % 82.5 % (36.0-66.0); PLATELET COUNT, AUTOMATED 318 10^3/uL (150-450); RED BLOOD COUNT 4.39 10^6/uL (4.00-5.40); RED CELL DISTRIBUTION WIDTH 13.2 % (11.5-14.5); WHITE BLOOD COUNT 9.3 10^3/uL (4.0-10.0)
[2018-01-19] MEDS: NS 1,000 ML IV (13:12)
[2018-01-19 13:13] LABS: INR 2.01; PROTHROMBIN TIME 23.1 SECONDS (12.1-14.4)
[2018-01-19] MEDS: SODIUM CHLORIDE 0.9% 3ML NEB SOLUTION FOR INHALATION INH ×2 (13:33→16:05)
[2018-01-19 13:36] LABS: ANION GAP 11 MEQ/L (8-16); CALCIUM LEVEL 8.1 MG/DL (8.8-10.2); CARBON DIOXIDE LEVEL 26 MEQ/L (21-32); CHLORIDE LEVEL 94 MEQ/L (98-107); CPK CREATINE PHOSPHOKINASE 52 U/L (26-192); CREATININE FOR GFR 0.15 MG/DL (0.55-1.30); GLOMERULAR FILTRATION RATE > 60.0 (>45); GLUCOSE, FASTING 141 MG/DL (70-100); POTASSIUM SERUM 3.5 MEQ/L (3.5-5.1); SODIUM LEVEL 131 MEQ/L (136-145); TROPONIN I 0.26 NG/ML (< 0.10)
[2018-01-19 13:41] LABS: BLOOD UREA NITROGEN 5 MG/DL (7-18); CK-MB VALUE MASS 4.7 NG/ML (<3.6); MB/CK RELATIVE INDEX 9.03 (< OR =4); NT-PRO BNP 8191 PG/ML (<125)
[2018-01-19] MEDS: ASPIRIN 300 MG SUPP PR (13:46)
[2018-01-19] MEDS: ALBUTEROL SULFATE 2.5 MG/0.5 ML INH NEB SOLN NEB (14:59)
[2018-01-19] MEDS: LORazepam 2 MG/ML VIAL (J2060) IV (16:53)
== END 2018-01-19 17:29 | disposition short-term general hospital (02) ==
LOC: M ED 12:16
DX: I21.4 Non-ST elevation (NSTEMI) myocardial infarction (principal); I50.9 Heart failure, unspecified; G12.21 Amyotrophic lateral sclerosis; J44.9 Chronic obstructive pulmonary disease, unspecified; Z98.890 Other specified postprocedural states; Z79.01 Long term (current) use of anticoagulants; Z86.79 Personal history of other diseases of the circulatory system; Z93.1 Gastrostomy status; Z96.0 Presence of urogenital implants; I25.2 Old myocardial infarction; Z79.899 Other long term (current) drug therapy; Z87.891 Personal history of nicotine dependence
CPT/HCPCS: J2060